=== PATIENT | female | born 1995 | race Caucasian/White ===

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

== ENCOUNTER 2017-01-13 12:42 | Emergency (ER) | payer OTHER ==
--- NOTE | 2017-01-13 13:26 | ED ---
URI HPI - General Chief Complaint: Upper Respiratory Infection Stated Complaint: Congestion,Headache Time Seen by Provider: 01/13/17 13:14 Source: patient, RN notes reviewed Mode of arrival: ambulatory Limitations: no limitations - History of Present Illness Initial Comments: Patient is a 21-year-old female with a chief complaint of upper a story congestion for the past week. Patient reports that she's had these symptoms off -and-on for the past month. She states that she was seen at [facility] and had a negative rapid strep and influenza yesterday. Patient states that she's had a productive cough. She is a smoker. She denies any history of asthma. She states that her cough has been green tinge of the sputum. She reports that she had a fever yesterday. She is taking Mucinex DM and Tylenol for pain. - Related Data Home Medications Medication Instructions Recorded Confirmed Ranitidine HCl [Zantac] 150 mg PO DAILY 06/14/16 12/19/16 Loratadine [Claritin] 10 mg PO DAILY 11/08/16 12/19/16 Escitalopram [Lexapro] 5 mg PO DAILY 12/19/16 12/19/16 Previous Rx's Medication Instructions Recorded Azithromycin [Zithromax Z-pack] 250 mg PO DIRECTED #6 tab 01/13/17 methylPREDNISolone Dose Pack 4 mg PO DIRECTED #21 package 01/13/17 [Medrol Dose Pack] Allergies Allergy/AdvReac Type Severity Reaction Status Date / Time No Known Allergies Allergy Verified 01/13/17 13:09 Review of Systems ROS Statement: Those systems with pertinent positive or pertinent negative responses have been documented in the HPI. ROS Other: All systems not noted in ROS Statement are negative. Past Medical History Past Medical History: GERD/Reflux Additional Past Medical History / Comment(s): hiatal hernia History of Any Multi-Drug Resistant Organisms: None Reported Past Surgical History: No Surgical Hx Reported Past Psychological History: Anxiety, Depression Smoking Status: Current every day smoker Past Alcohol Use History: None Reported Past Drug Use History: None Reported General Exam - General Exam Comments Initial Comments: Patient is a well-appearing 21-year-old female. No acute distress. Limitations: no limitations General appearance: alert, in no apparent distress Head exam: Present: atraumatic, normocephalic, normal inspection Eye exam: Present: normal appearance, PERRL, EOMI. Absent: scleral icterus, conjunctival injection, periorbital swelling ENT exam: Present: normal exam, normal oropharynx, mucous membranes moist, TM's normal bilaterally Neck exam: Present: normal inspection. Absent: tenderness, meningismus, lymphadenopathy Respiratory exam: Present: normal lung sounds bilaterally. Absent: respiratory distress, wheezes, rales, rhonchi, stridor Cardiovascular Exam: Present: regular rate, normal rhythm, normal heart sounds. Absent: systolic murmur, diastolic murmur, rubs, gallop, clicks GI/Abdominal exam: Present: soft, normal bowel sounds. Absent: distended, tenderness, guarding, rebound, rigid Extremities exam: Present: normal inspection, full ROM, normal capillary refill. Absent: tenderness, pedal edema, joint swelling, calf tenderness Back exam: Present: normal inspection Neurological exam: Present: alert, oriented X3, CN II-XII intact Psychiatric exam: Present: normal affect, normal mood Skin exam: Present: warm, dry, intact, normal color. Absent: rash Course Vital Signs 01/13/17 01/13/17 13:05 13:10 Temperature 99.2 F Pulse Rate 103 H Respiratory 18 20 Rate Blood Pressure 128/81 O2 Sat by Pulse 99 Oximetry Medical Decision Making - Medical Decision Making Patient is a 21-year-old [employer] chief complaint of upper respiratory and cough for the past week. She reports she's had a productive green cough. The patient had a negative rapid strep and influenza screen yesterday. Patient does have a productive cough while in the emergency room. Patient's chest x- ray was negative for any acute process. Given the patient's length of symptoms , fever and productive green cough I will start the patient on azithromycin and a Medrol Dosepak. I advised her to follow-up with primary care provider if symptoms continue persist in the next week. Return parameters were discussed. - Radiology Data Radiology results: report reviewed Chest Xray is negative for any acute process. No signs of pneumonia, pleural effusion. Disposition Clinical Impression: Cough, Sinus congestion Disposition: HOME SELF-CARE Condition: Good Instructions: Upper Respiratory Infection (ED) Additional Instructions: Patient advised to rest, increase fluids and to complete steroid and antibiotic prescription. Follow-up with primary care provider if symptoms continue to persist. Return to the EC they are signs or symptoms occur. Patient is advised to quit smoking as this will delay her healing as well. Prescriptions: Azithromycin [Zithromax Z-pack] 250 mg PO DIRECTED #6 tab methylPREDNISolone Dose Pack [Medrol Dose Pack] 4 mg PO DIRECTED #21 package Time of Disposition: 13:44
--- NOTE | 2017-01-13 13:37 | XR ---
EXAMINATION TYPE: XR chest 2V DATE OF EXAM: 01/13/2017 1:32 PM COMPARISON: 08/06/2016 TECHNIQUE: PA and lateral views submitted. HISTORY: Cough FINDINGS: The lungs are clear and there is no pneumothorax, pleural effusion, or focal pneumonia. IMPRESSION: 1. No acute process.
[2017-01-13 14:19] VITALS: BP 125/78; PULSE 100; RESP 16; TEMP 98.7
== END 2017-01-13 14:00 | disposition home or self-care (01) ==
LOC: EC 12:42
DX: R05 Cough (principal); R09.81 Nasal congestion; K21.9 Gastro-esophageal reflux disease without esophagitis; F41.9 Anxiety disorder, unspecified; F32.9 Major depressive disorder, single episode, unspecified; F17.200 Nicotine dependence, unspecified, uncomplicated
CPT/HCPCS: 71020; 99283

== ENCOUNTER 2017-02-17 21:12 | Emergency (ER) | payer OTHER ==
[2017-02-17 21:53] VITALS: BP 116/66; PULSE 89; RESP 16; TEMP 101.4
[2017-02-17] MEDS ORDERED: ACETAMINOPHEN TAB 500 MG TAB PO STA (22:15)
--- NOTE | 2017-02-17 22:18 | ED ---
General Adult HPI - General Chief complaint: ENT Stated complaint: Sore throat/Headache Time Seen by Provider: 02/17/17 22:10 Source: patient, RN notes reviewed Mode of arrival: ambulatory Limitations: no limitations - History of Present Illness Initial comments: This is a 21-year-old female who presents today with complaints of sore throat. Patient states she woke up this morning with a sore throat, dry cough, congestion and body aches. Patient denies any shortness of breath or headache. Patient states the only thing she has taken today is a Motrin. Patient denies any measured fever or symptoms of fevers/chills. Patient admits to some mild nausea but denies any abdominal pain, vomiting or diarrhea. Patient denies any chance of being . Patient states she is eating and drinking normally. Patient denies any dysuria or frequency of urination. Patient denies any recent shortness breath, chest pain, back pain, numbness, tingling, hematuria, or visual changes, or any other complaints. - Related Data Home Medications Medication Instructions Recorded Confirmed Ranitidine HCl [Zantac] 150 mg PO DAILY 06/14/16 02/17/17 Loratadine [Claritin] 10 mg PO DAILY 11/08/16 02/17/17 Escitalopram [Lexapro] 5 mg PO DAILY 12/19/16 02/17/17 Previous Rx's Medication Instructions Recorded Azithromycin [Zithromax Z-pack] 250 mg PO DIRECTED #6 tab 01/13/17 methylPREDNISolone Dose Pack 4 mg PO DIRECTED #21 package 01/13/17 [Medrol Dose Pack] Benzonatate [Tessalon Perles] 100 mg PO TID 3 Days 02/17/17 Allergies Allergy/AdvReac Type Severity Reaction Status Date / Time No Known Allergies Allergy Verified 02/17/17 21:53 Review of Systems ROS Statement: Those systems with pertinent positive or pertinent negative responses have been documented in the HPI. ROS Other: All systems not noted in ROS Statement are negative. Past Medical History Past Medical History: GERD/Reflux Additional Past Medical History / Comment(s): hiatal hernia History of Any Multi-Drug Resistant Organisms: None Reported Past Surgical History: No Surgical Hx Reported Past Psychological History: Anxiety, Depression Smoking Status: Current every day smoker Past Alcohol Use History: None Reported Past Drug Use History: None Reported General Exam - General Exam Comments Initial Comments: General: The patient is awake and alert, in no distress, and does not appear acutely ill. Eye: Pupils are equal, round and reactive to light, extra-ocular movements are intact. No nystagmus. There is normal conjunctiva bilaterally. No signs of icterus. Ears: TMs pink and pearly with intact cone of light bilaterally. Normal external ear canals Nose: Nasal turbinates are erythematous and moist. Mouth and throat: Mild erythema of the posterior pharynx. There are moist mucous membranes and no oral lesions. Neck: The neck is supple, there is no tenderness or JVD. Cardiovascular: There is a regular rate and rhythm. No murmur, rub or gallop is appreciated. Respiratory: Lungs are clear to auscultation, respirations are non-labored, breath sounds are equal. No wheezes, stridor, rales, or rhonchi. Gastrointestinal: Soft, non-distended, non-tender abdomen without masses or organomegaly noted. There is no rebound or guarding present. No CVA tenderness. Bowel sounds are unremarkable. Musculoskeletal: Normal ROM, no tenderness. Strength 5/5. Sensation intact. Radial pulses equal bilaterally 2+. Neurological: A&O x 3. CN II-XII intact, There are no obvious motor or sensory deficits. Coordination appears grossly intact. Speech is normal. Skin: Skin is warm and dry and no rashes or lesions are noted. Psychiatric: Cooperative, appropriate mood & affect, normal judgment. Limitations: no limitations Course Vital Signs 02/17/17 21:48 Temperature 101.4 F H Pulse Rate 89 Respiratory 16 Rate Blood Pressure 116/66 O2 Sat by Pulse 98 Oximetry Medical Decision Making - Medical Decision Making This is a 21-year-old female with complaints of sore throat. On physical exam patient has fever in the EC and was given Tylenol for this. Lungs are clear to auscultation bilaterally. There is mild erythema posterior pharynx. Nasal turbinates are erythematous and moist. Influenza and strep were checked and came back negative. A chest x-ray was done and reviewed showing: Normal chest. No change. Report by Dr. Kearney. I discussed viral pharyngitis. Discussed continuation of Tylenol and Motrin for pain and fever. I discussed that patient be sure to drink plenty of fluids. Patient was given a prescription for Tessalon Perles. I discussed return parameters. Discussed that patient should follow up with PCP in one to 2 days or return to the EC for any worsening symptoms or for any further concerns. Patient was receptive to this plan and patient will be discharged home. - Lab Data Lab Results 02/17/17 02/17/17 Range/Units 22:16 22:16 Influenza Type A RNA Not Detected (Not Detectd) Influenza Type B (PCR) Not Detected (Not Detectd) Group A Strep Rapid Negative (Negative) Disposition Clinical Impression: Viral pharyngitis Disposition: HOME SELF-CARE Condition: Good Instructions: Pharyngitis (ED) Additional Instructions: Please continue Tylenol and Motrin for pain and fever. Please be sure to drink plenty of fluids.Please use medication as discussed. Please follow-up with family doctor in the next 2 days of symptoms have not improved. Please return to emergency room if the symptoms increase or worsen or for any other concerns. Prescriptions: Benzonatate [Tessalon Perles] 100 mg PO TID 3 Days Referrals: Alyssa Rahman MD [Primary Care Provider] - 1-2 days Time of Disposition: 23:04
--- NOTE | 2017-02-17 22:54 | XR ---
EXAMINATION TYPE: XR chest 2V DATE OF EXAM: 02/17/2017 10:30 PM COMPARISON: 01/13/2017 HISTORY: Chest pain and cough TECHNIQUE: Frontal and lateral views of the chest are obtained. FINDINGS: Heart and mediastinum are normal. Lungs are clear. Diaphragm is normal. Bony thorax appear s normal. IMPRESSION: Normal chest. No change.
== END 2017-02-17 23:06 | disposition home or self-care (01) ==
LOC: EC 21:12
DX: J02.9 Acute pharyngitis, unspecified (principal); R50.9 Fever, unspecified; R05 Cough; K21.9 Gastro-esophageal reflux disease without esophagitis; K44.9 Diaphragmatic hernia without obstruction or gangrene; F41.9 Anxiety disorder, unspecified; F32.9 Major depressive disorder, single episode, unspecified; F17.200 Nicotine dependence, unspecified, uncomplicated; Z79.899 Other long term (current) drug therapy
CPT/HCPCS: 71020; 87081; 87430; 87502; 99282

== ENCOUNTER 2017-03-07 10:35 | Emergency (ER) | payer OTHER ==
[2017-03-07 11:26] VITALS: BP 114/63; PULSE 61; RESP 18; TEMP 97.9
[2017-03-07] MEDS ORDERED: predniSONE 50 MG TAB PO STA ×2 (11:40→11:54)
--- NOTE | 2017-03-07 11:43 | ED ---
General Adult HPI - General Chief complaint: Skin/Abscess/Foreign Body Stated complaint: RASH Time Seen by Provider: 03/07/17 11:25 Source: patient, RN notes reviewed Mode of arrival: ambulatory - History of Present Illness Initial comments: This is a 21-year-old female who presents emergency Department complaining of a rash on the lateral aspect of both upper arms. Patient states she was in class today when all of a sudden both arms started to itch she noticed a very subtle maculopapular rash on the upper arms. Patient states she has not noted anywhere else and she states the itching has improved. Patient states she can' t take Benadryl because she is to be awake for class and driving so she preferred. Get something else for the itching. Patient denies any difficulty breathing [place] of breath. Patient denies any similar rash in the past. Patient denies any new detergents or soaps or lotions. - Related Data Home Medications Medication Instructions Recorded Confirmed Ranitidine HCl [Zantac] 150 mg PO DAILY 06/14/16 02/17/17 Loratadine [Claritin] 10 mg PO DAILY 11/08/16 02/17/17 Escitalopram [Lexapro] 5 mg PO DAILY 12/19/16 02/17/17 Previous Rx's Medication Instructions Recorded Azithromycin [Zithromax Z-pack] 250 mg PO DIRECTED #6 tab 01/13/17 methylPREDNISolone Dose Pack 4 mg PO DIRECTED #21 package 01/13/17 [Medrol Dose Pack] Benzonatate [Tessalon Perles] 100 mg PO TID 3 Days 02/17/17 predniSONE 20 mg PO DAILY #8 tab 03/07/17 Allergies Allergy/AdvReac Type Severity Reaction Status Date / Time No Known Allergies Allergy Verified 02/17/17 21:53 Review of Systems ROS Statement: Those systems with pertinent positive or pertinent negative responses have been documented in the HPI. ROS Other: All systems not noted in ROS Statement are negative. Past Medical History Past Medical History: GERD/Reflux Additional Past Medical History / Comment(s): hiatal hernia History of Any Multi-Drug Resistant Organisms: None Reported Past Surgical History: No Surgical Hx Reported Past Psychological History: Anxiety, Depression Smoking Status: Current every day smoker Past Alcohol Use History: None Reported Past Drug Use History: None Reported General Exam - General Exam Comments Initial Comments: GENERAL Patient is well-developed and well-nourished. Patient is in mild distress. EYES Patient's pupils are equal and round. Extraocular motion is intact SKIN Patient has a very subtle maculopapular rash on both upper arms on the lateral aspect. NEURO The patient is alert and oriented 3 PYSCH Patient has normal interpersonal interactions. MUSCULOSKELETAL See above Course Vital Signs 03/07/17 11:24 Temperature 97.9 F Pulse Rate 61 Respiratory 18 Rate Blood Pressure 114/63 O2 Sat by Pulse 99 Oximetry Disposition Clinical Impression: Contact dermatitis Disposition: HOME SELF-CARE Condition: Good Instructions: Contact Dermatitis (ED) Prescriptions: predniSONE 20 mg PO DAILY #8 tab Referrals: Alyssa Rahman MD [Primary Care Provider] - 1-2 days Time of Disposition: 11:42
== END 2017-03-07 12:04 | disposition home or self-care (01) ==
LOC: EC 10:35
DX: L25.9 Unspecified contact dermatitis, unspecified cause (principal); K21.9 Gastro-esophageal reflux disease without esophagitis; F32.9 Major depressive disorder, single episode, unspecified; F41.9 Anxiety disorder, unspecified; F17.200 Nicotine dependence, unspecified, uncomplicated; Z79.899 Other long term (current) drug therapy
CPT/HCPCS: 99282; J7512

== ENCOUNTER 2017-08-18 14:40 | Emergency (ER) | payer OTHER ==
--- NOTE | 2017-08-18 15:18 | ED ---
General Adult HPI - General Chief complaint: Urogenital Stated complaint: nausea/headache Time Seen by Provider: 08/18/17 15:07 Source: patient, RN notes reviewed Mode of arrival: ambulatory Limitations: no limitations - History of Present Illness Initial comments: Patient 22-year-old female who presents emergency room today with a chief complaint of urinary tract infection type symptoms over the last 2 weeks. Despite increased urination and dysuria. She states that she's had some blood in her vaginal discharge. She admits that she finished her menstrual cycle yesterday. Patient also admits to some body aches. She states she said some nasal congestion and rhinorrhea. Admits to mild sore throat. Admits to mild cough. She does admit to headache as well located to the front. Patient denies any other complaints or symptoms at this time. Patient denies any shortness breath, chest pain, abdominal pain, numbness tingling, nausea or vomiting, no change, neck pain or stiffness. - Related Data Home Medications Medication Instructions Recorded Confirmed Ranitidine HCl [Zantac] 150 mg PO DAILY 06/14/16 02/17/17 Escitalopram [Lexapro] 5 mg PO DAILY 12/19/16 02/17/17 Previous Rx's Medication Instructions Recorded Ciprofloxacin HCl [Cipro] 500 mg PO Q12HR #20 day 08/18/17 Fluticasone Propionate [Flonase 1 - 2 spray EA NOSTRIL DAILY 5 Days 08/18/17 Allergy Relief] Ibuprofen [Motrin] 600 mg PO Q6HR PRN #40 day 08/18/17 Phenazopyridine [Pyridium] 100 mg PO TID 3 Days 08/18/17 Allergies Allergy/AdvReac Type Severity Reaction Status Date / Time No Known Allergies Allergy Verified 08/18/17 15:04 Review of Systems ROS Statement: Those systems with pertinent positive or pertinent negative responses have been documented in the HPI. ROS Other: All systems not noted in ROS Statement are negative. Past Medical History Past Medical History: GERD/Reflux Additional Past Medical History / Comment(s): hiatal hernia History of Any Multi-Drug Resistant Organisms: None Reported Past Surgical History: No Surgical Hx Reported Past Psychological History: Anxiety, Depression Smoking Status: Current every day smoker Past Alcohol Use History: None Reported Past Drug Use History: None Reported General Exam - General Exam Comments Initial Comments: General: The patient is awake and alert, in no distress, and does not appear acutely ill. Eye: Pupils are equal, round and reactive to light, extra-ocular movements are intact. No nystagmus. There is normal conjunctiva bilaterally. No signs of icterus. Ears, nose, mouth and throat: There are moist mucous membranes and no oral lesions. Tender to palpation over the maxillary sinuses. Neck: The neck is supple, there is no tenderness or JVD. No Meningismal signs. Cardiovascular: There is a regular rate and rhythm. No murmur, rub or gallop is appreciated. Respiratory: Lungs are clear to auscultation, respirations are non-labored, breath sounds are equal. No wheezes, stridor, rales, or rhonchi. Gastrointestinal: Soft, non-distended, non-tender abdomen without masses or organomegaly noted. There is no rebound or guarding present. No CVA tenderness. Bowel sounds are unremarkable. Musculoskeletal: Normal ROM, no tenderness. Strength 5/5. Sensation intact. Pulses equal bilaterally 2+. Neurological: A&O x 3. CN II-XII intact, There are no obvious motor or sensory deficits. Coordination appears grossly intact. Speech is normal. Skin: Skin is warm and dry and no rashes or lesions are noted. Psychiatric: Cooperative, appropriate mood & affect, normal judgment. Limitations: no limitations Course Vital Signs 08/18/17 15:00 Temperature 101.9 F H Pulse Rate 113 H Respiratory 20 Rate Blood Pressure 116/61 O2 Sat by Pulse 100 Oximetry Medical Decision Making - Medical Decision Making Urinalysis reviewed and does show evidence for urinary tract infection. Culture is pending. Patient reexamined at this time shows no signs of distress. Abdomen soft nontender. No flank pain or tenderness. Patient given Rocephin here in the emergency room. Patient also has symptoms of a sinus infection. She was here on antibiotics of ciprofloxacin for her symptoms also given Pyridium. Patient will also be given a prescription for Flonase to use for her sinus infection. She is advised. Family doctor over the next 2 days return here to the emergency room if any symptoms increase or worsen or for any other concerns. - Lab Data Lab Results 08/18/17 08/18/17 Range/Units 15:10 15:10 Urine Color Yellow Urine Appearance Cloudy H (Clear) Urine pH 6.0 (5.0-8.0) Ur Specific [place] 1.019 (1.001-1.035) Urine Protein 1+ H (Negative) Urine Glucose (UA) Negative (Negative) Urine Ketones Negative (Negative) Urine Blood Trace H (Negative) Urine Nitrite Negative (Negative) Urine Bilirubin Negative (Negative) Urine Urobilinogen 2.0 (<2.0) mg/dL Ur Leukocyte Esterase Large H (Negative) Urine RBC 3 (0-5) /hpf Urine WBC >182 H (0-5) /hpf Ur Squamous Epith Cells 15 H (0-4) /hpf Urine Mucus Occasional H (None) /hpf Urine HCG, Qual Not Detected (Not Detectd) Disposition Clinical Impression: Urinary tract infection, Sinusitis, acute Disposition: HOME SELF-CARE Condition: Good Instructions: Urinary Tract Infection in Women (ED) Additional Instructions: Please use medication as discussed. Please follow-up with family doctor in the next 2 days. Please return to emergency room if the symptoms increase or worsen or for any other concerns. Prescriptions: Ciprofloxacin HCl [Cipro] 500 mg PO Q12HR #20 day Fluticasone Propionate [Flonase Allergy Relief] 1 - 2 spray EA NOSTRIL DAILY 5 Days Ibuprofen [Motrin] 600 mg PO Q6HR PRN #40 day PRN Reason: Pain Phenazopyridine [Pyridium] 100 mg PO TID 3 Days Referrals: Alyssa Rahman MD [Primary Care Provider] - 1-2 days Time of Disposition: 15:43
[2017-08-18 15:31] LABS: Appearance,Urine Cloudy (Clear); Bilirubin,Urine Negative (Negative); Glucose,Urine (UA) Negative (Negative); Ketones,Urine Negative (Negative); Leukocyte Esterase,Urine Large (Negative); Mucus,Urine Occasional /hpf; Nitrite,Urine Negative (Negative); Particle Count 11525; Protein,Urine 1+ (Negative); RBC,Urine 3 /hpf (0-5); Specific Gravity,Urine 1.019 (1.001-1.035); Squamous Epithelial Cell,Urine 15 /hpf (0-4); UA Billing (MACRO vs. MICRO) MICRO; WBC,Urine >182 /hpf (0-5)
[2017-08-18] MEDS ORDERED: cefTRIAXone 1,000 MG VIAL (IM USE) IM STA (15:41)
[2017-08-18] MEDS ORDERED: IBUPROFEN 600 MG TAB PO STA (15:41)
[2017-08-18 16:16] VITALS: BP 114/58; PULSE 106; RESP 18; TEMP 101.4
== END 2017-08-18 16:16 | disposition home or self-care (01) ==
LOC: EC 14:40
DX: N39.0 Urinary tract infection, site not specified (principal); J01.00 Acute maxillary sinusitis, unspecified; K21.9 Gastro-esophageal reflux disease without esophagitis; F32.9 Major depressive disorder, single episode, unspecified; F41.9 Anxiety disorder, unspecified; F17.200 Nicotine dependence, unspecified, uncomplicated; Z79.899 Other long term (current) drug therapy
CPT/HCPCS: 99283; 96372; 81001; 81025; 87086; 87077; 87186; J0696

== ENCOUNTER 2018-01-20 21:27 | Emergency (ER) | payer OTHER ==
[2018-01-20 21:43] VITALS: RESP 16
--- NOTE | 2018-01-20 22:24 | XR ---
EXAMINATION TYPE: XR wrist complete LT DATE OF EXAM: 01/20/2018 COMPARISON: NONE HISTORY: Wrist pain TECHNIQUE: 4 views FINDINGS: I see no fracture nor dislocation. Joint spaces are normal. There are no erosions. There ar e no pathologic calcifications. Scaphoid is intact. IMPRESSION: Negative left wrist exam.
--- NOTE | 2018-01-20 22:29 | ED ---
Extremity Problem HPI - General Chief complaint: Extremity Problem,Nontraumatic Stated complaint: Wrist pain Time Seen by Provider: 01/20/18 21:45 Source: patient, RN notes reviewed, old records reviewed Mode of arrival: ambulatory Limitations: no limitations - History of Present Illness Initial comments: Patient is a 22 year old female with left wrist apin after lifting weights this week. No falls or trauma. She states pain is reporduced with ROM. Denies numbness or tingling. No falls or trauma to wrist. She is right handed. - Related Data Home Medications Medication Instructions Recorded Confirmed Ranitidine HCl [Zantac] 150 mg PO DAILY 06/14/16 01/20/18 Escitalopram [Lexapro] 5 mg PO DAILY 12/19/16 01/20/18 Cholecalciferol (Vitamin D3) 2,000 unit PO DAILY 01/20/18 01/20/18 [Vitamin D3] Loratadine [Claritin] 10 mg PO DAILY 01/20/18 01/20/18 Previous Rx's Medication Instructions Recorded Ibuprofen [Motrin] 400 mg PO Q4H #20 tab 01/20/18 Allergies Allergy/AdvReac Type Severity Reaction Status Date / Time No Known Allergies Allergy Verified 01/20/18 22:01 Review of Systems ROS Statement: Those systems with pertinent positive or pertinent negative responses have been documented in the HPI. ROS Other: All systems not noted in ROS Statement are negative. Past Medical History Past Medical History: GERD/Reflux Additional Past Medical History / Comment(s): hiatal hernia History of Any Multi-Drug Resistant Organisms: None Reported Past Surgical History: No Surgical Hx Reported Past Psychological History: Anxiety, Depression Smoking Status: Current every day smoker Past Alcohol Use History: None Reported Past Drug Use History: None Reported General Exam - General Exam Comments Initial Comments: This is a 22 year old female, no distress. Limitations: no limitations General appearance: alert, in no apparent distress Head exam: Present: atraumatic, normocephalic, normal inspection Eye exam: Present: normal appearance, PERRL, EOMI. Absent: scleral icterus, conjunctival injection, periorbital swelling ENT exam: Present: normal exam, mucous membranes moist Neck exam: Present: normal inspection. Absent: tenderness, meningismus, lymphadenopathy Respiratory exam: Present: normal lung sounds bilaterally. Absent: respiratory distress, wheezes, rales, rhonchi, stridor Cardiovascular Exam: Present: regular rate, normal rhythm, normal heart sounds. Absent: systolic murmur, diastolic murmur, rubs, gallop, clicks Extremities exam: Present: normal inspection, full ROM, normal capillary refill. Absent: tenderness, pedal edema, joint swelling, calf tenderness Left Elbow exam: Present: normal inspection, full ROM Forearm Wrist exam: Present: normal inspection, full ROM, tenderness (over carpals and reports pain with ROM. Full ROM noted.). Absent: dislocation, erythema, tenderness over anatomical snuff box, pain with axial thumb loading Hand Wrist exam: Present: normal inspection, full ROM Neuro motor exam: Present: wrist extension intact, thumb opposition intact, thumb IP flexion intact, thumb adduction intact, fingers 2-5 abduction intact Neurosensory exam: Present: 2-point discrimination Vascular: Present: normal capillary refill Back exam: Present: normal inspection Neurological exam: Present: alert, oriented X3, CN II-XII intact Psychiatric exam: Present: normal affect, normal mood Skin exam: Present: warm, dry, intact, normal color. Absent: rash Course Vital Signs 01/20/18 01/20/18 21:37 22:46 Temperature 97.3 F L 97.7 F Pulse Rate 77 72 Respiratory 16 16 Rate Blood Pressure 133/73 130/70 O2 Sat by Pulse 99 Oximetry Medical Decision Making - Medical Decision Making 22 year old female with non traumatic left wrist injury after lifting weights for one week. No other symptoms. Patient has full ROM, and no deformities or specific point tenderness. No snuff box tenderness. Patient xray of wrist is normal, no fracture, discolcation. Patient has no other symptoms. At this time paitent placed in TIFFANY wrap and adcised to follow up with PCP. Return parameters discussed. - Radiology Data Radiology results: report reviewed Wrist xray is negative for any acute process. Disposition Clinical Impression: Left wrist sprain Disposition: HOME SELF-CARE Condition: Good Instructions: Wrist Sprain (ED) Additional Instructions: Patient advised follow-up with health education specialist. Keep the wrist remaining in splint. Return to emergency department if any alarming signs or symptoms occur. Prescriptions: Ibuprofen [Motrin] 400 mg PO Q4H #20 tab Referrals: Alyssa Rahman MD [Primary Care Provider] - 1-2 days Time of Disposition: 22:27
[2018-01-20 22:47] VITALS: BP 130/70; PULSE 72; TEMP 97.7
== END 2018-01-20 22:47 | disposition home or self-care (01) ==
LOC: EC 21:27
DX: S63.501A Unspecified sprain of right wrist, initial encounter (principal); K21.9 Gastro-esophageal reflux disease without esophagitis; F41.9 Anxiety disorder, unspecified; F32.9 Major depressive disorder, single episode, unspecified; F17.200 Nicotine dependence, unspecified, uncomplicated; Z79.899 Other long term (current) drug therapy; X50.0XXA Overexertion from strenuous movement or load, initial encounter; Y93.75 Activity, martial arts
CPT/HCPCS: 99284

== ENCOUNTER 2018-01-26 15:19 | Emergency (ER) | payer OTHER ==
[2018-01-26 15:41] VITALS: BP 122/71; PULSE 106; RESP 18; TEMP 98.8
--- NOTE | 2018-01-26 16:08 | ED ---
General Adult HPI - General Chief complaint: Upper Respiratory Infection Stated complaint: Cold Time Seen by Provider: 01/26/18 15:53 Source: patient, RN notes reviewed Mode of arrival: ambulatory Limitations: no limitations - History of Present Illness Initial comments: Patient's a 22-year-old female who presents emergency room today with chief complaint cough congestion and rhinorrhea over the last week. She states cough is been dry. She's been using [id number] medications with little relief of the symptoms. Patient states that she has had a little bit of a sore throat and pressure ears. Patient denies any other complaints. Patient denies any recent fever, chills, shortness of breath, chest pain, back pain, abdominal pain , nausea or vomiting, numbness or tingling, dysuria or hematuria, constipation or diarrhea, headaches or visual changes, or any other complaints. - Related Data Home Medications Medication Instructions Recorded Confirmed Ranitidine HCl [Zantac] 150 mg PO DAILY 06/14/16 01/20/18 Escitalopram [Lexapro] 5 mg PO DAILY 12/19/16 01/20/18 Cholecalciferol (Vitamin D3) 2,000 unit PO DAILY 01/20/18 01/20/18 [Vitamin D3] Loratadine [Claritin] 10 mg PO DAILY 01/20/18 01/20/18 Previous Rx's Medication Instructions Recorded Ibuprofen [Motrin] 400 mg PO Q4H #20 tab 01/20/18 Amoxicillin/Potassium Clav 1 each PO Q12HR #20 tab 01/26/18 [Augmentin 875-125 Tablet] Fluticasone Propionate [Flonase 1 - 2 spray EA NOSTRIL DAILY 5 01/26/18 Allergy Relief] Days ml Allergies Allergy/AdvReac Type Severity Reaction Status Date / Time No Known Allergies Allergy Verified 01/26/18 15:40 Review of Systems ROS Statement: Those systems with pertinent positive or pertinent negative responses have been documented in the HPI. ROS Other: All systems not noted in ROS Statement are negative. Past Medical History Past Medical History: GERD/Reflux Additional Past Medical History / Comment(s): hiatal hernia History of Any Multi-Drug Resistant Organisms: None Reported Past Surgical History: No Surgical Hx Reported Past Psychological History: Anxiety, Depression Smoking Status: Current every day smoker Past Alcohol Use History: None Reported Past Drug Use History: None Reported General Exam - General Exam Comments Initial Comments: General: The patient is awake and alert, in no distress, and does not appear acutely ill. Eye: Pupils are equal, round and reactive to light, extra-ocular movements are intact. No nystagmus. There is normal conjunctiva bilaterally. No signs of icterus. Ears, nose, mouth and throat: There are moist mucous membranes and no oral lesions. Tender to palpation over both frontal and maxillary sinuses. TM's Clear bilaterally. Neck: The neck is supple, there is no tenderness or JVD. Cardiovascular: There is a regular rate and rhythm. No murmur, rub or gallop is appreciated. Respiratory: Lungs are clear to auscultation, respirations are non-labored, breath sounds are equal. No wheezes, stridor, rales, or rhonchi. Musculoskeletal: Normal ROM, no tenderness. Strength 5/5. Sensation intact. Pulses equal bilaterally 2+. Neurological: A&O x 3. CN II-XII intact, There are no obvious motor or sensory deficits. Coordination appears grossly intact. Speech is normal. Skin: Skin is warm and dry and no rashes or lesions are noted. Psychiatric: Cooperative, appropriate mood & affect, normal judgment. Limitations: no limitations Course Vital Signs 01/26/18 15:38 Temperature 98.8 F Pulse Rate 106 H Respiratory 18 Rate Blood Pressure 122/71 O2 Sat by Pulse 99 Oximetry Medical Decision Making - Medical Decision Making Patient will be treated for sinus infection with Flonase also advised to use [id number] Claritin and Sudafed. Patient will be provided a antibiotic advised to hold antibiotics if symptoms do not improve over the next 2 days to use medication as prescribed. Advised follow-up family doctor return here to emergency room if any symptoms increase worsen. Disposition Clinical Impression: Acute sinusitis Disposition: HOME SELF-CARE Condition: Good Instructions: Sinusitis (ED) Additional Instructions: Please use medication as discussed. Please follow-up with family doctor in the next 2 days of symptoms have not improved. Please return to emergency room if the symptoms increase or worsen or for any other concerns. Prescriptions: Amoxicillin/Potassium Clav [Augmentin 875-125 Tablet] 1 each PO Q12HR #20 tab Fluticasone Propionate [Flonase Allergy Relief] 1 - 2 spray EA NOSTRIL DAILY 5 Days ml Referrals: Alyssa Rahman MD [Primary Care Provider] - 1-2 days Time of Disposition: 16:04
== END 2018-01-26 16:18 | disposition home or self-care (01) ==
LOC: EC 15:19
DX: J01.90 Acute sinusitis, unspecified (principal); J02.9 Acute pharyngitis, unspecified; R05 Cough; F17.200 Nicotine dependence, unspecified, uncomplicated; K21.9 Gastro-esophageal reflux disease without esophagitis; F32.9 Major depressive disorder, single episode, unspecified; F41.9 Anxiety disorder, unspecified; Z79.899 Other long term (current) drug therapy
CPT/HCPCS: 99283

== ENCOUNTER 2018-02-23 16:25 | Emergency (ER) | payer OTHER ==
[2018-02-23 16:45] VITALS: BP 120/66; PULSE 103; RESP 18; TEMP 100.1
[2018-02-23] MEDS ORDERED: ACETAMINOPHEN TAB 500 MG TAB PO STA (17:08)
--- NOTE | 2018-02-23 17:08 | ED ---
URI HPI - General Chief Complaint: Upper Respiratory Infection Stated Complaint: fever Time Seen by Provider: 02/23/18 16:55 Source: patient, RN notes reviewed Mode of arrival: ambulatory Limitations: no limitations - History of Present Illness Initial Comments: This is a 22-year-old female who presents to the emergency department with chief complaint of upper respiratory symptoms. Patient states that yesterday she developed a sore throat. Today she began to have fevers, nonproductive cough and nasal congestion. She states that her fevers have gone up to 101. She states that she took 600 mg of ibuprofen approximately an hour and half prior to arrival. Denies any chest pain or shortness of breath. Denies abdominal pain, nausea or vomiting, dysuria or hematuria, constipation or diarrhea. She does admit to associated headache. - Related Data Home Medications Medication Instructions Recorded Confirmed Ranitidine HCl [Zantac] 150 mg PO DAILY 06/14/16 01/20/18 Escitalopram [Lexapro] 5 mg PO DAILY 12/19/16 01/20/18 Cholecalciferol (Vitamin D3) 2,000 unit PO DAILY 01/20/18 01/20/18 [Vitamin D3] Loratadine [Claritin] 10 mg PO DAILY 01/20/18 01/20/18 Previous Rx's Medication Instructions Recorded Ibuprofen [Motrin] 400 mg PO Q4H #20 tab 01/20/18 Amoxicillin/Potassium Clav 1 each PO Q12HR #20 tab 01/26/18 [Augmentin 875-125 Tablet] Fluticasone Propionate [Flonase 1 - 2 spray EA NOSTRIL DAILY 5 01/26/18 Allergy Relief] Days ml Allergies Allergy/AdvReac Type Severity Reaction Status Date / Time No Known Allergies Allergy Verified 02/23/18 16:45 Review of Systems ROS Statement: Those systems with pertinent positive or pertinent negative responses have been documented in the HPI. ROS Other: All systems not noted in ROS Statement are negative. Past Medical History Past Medical History: GERD/Reflux Additional Past Medical History / Comment(s): hiatal hernia History of Any Multi-Drug Resistant Organisms: None Reported Past Surgical History: No Surgical Hx Reported Past Psychological History: Anxiety, Depression Smoking Status: Current every day smoker Past Alcohol Use History: None Reported Past Drug Use History: None Reported General Exam - General Exam Comments Initial Comments: General: Awake and alert, well-developed; in no apparent distress. HEENT: Head atraumatic, normocephalic. Pupils are equal, round and reactive to light. Extraocular movements intact. Oropharynx moist with mild erythema. No bilateral tonsillar enlargement or exudates. Neck: Supple. Normal ROM. Cardiovascular: Regular rate and rhythm. No murmurs, rubs or gallops. Chest symmetrical. Respiratory: Lungs clear to auscultation bilaterally. No wheezes, rales or rhonchi. Normal respiratory effort with no use of accessory muscles. Abdomen: Soft, non-tender, non-distended. No rigidity, rebound or guarding. Normal bowel sounds in all 4 quadrants. Musculoskeletal: Normal ROM, no tenderness bilateral upper and lower extremities. Ambulating normally. Skin: [place], warm and dry without rashes or lesions. Neurological: Alert and oriented x3. CN II-XII grossly intact. Speech is fluent and answers are appropriate. No focal neuro deficits. Psychiatric: Normal mood and affect. No overt signs of depression or anxiety noted. Limitations: no limitations Course Vital Signs 02/23/18 16:42 Temperature 100.1 F H Pulse Rate 103 H Respiratory 18 Rate Blood Pressure 120/66 O2 Sat by Pulse 99 Oximetry Medical Decision Making - Medical Decision Making This is a 22-year-old female who presents to the emergency department with chief complaint of upper respiratory symptoms 1 day. She complains of fevers, cough, sore throat, headache and nasal congestion. Patient is negative for strep and influenza. Chest x-ray reveals no acute cardiopulmonary processes. Patient likely suffering from a viral upper respiratory infection. Vital signs are stable and patient is in no acute distress. Recommended supportive care and increasing fluid intake. Patient is in agreement with plan and voices understanding. All questions were answered. - Lab Data Lab Results 02/23/18 02/23/18 Range/Units 17:00 17:00 Influenza Type A RNA Not Detected (Not Detectd) Influenza Type B (PCR) Not Detected (Not Detectd) Group A Strep Rapid Negative (Negative) - Radiology Data Radiology results: report reviewed Chest x-ray findings: Heart and mediastinum are normal. Lungs are clear. Diaphragm is normal. Bony thorax is intact. Pulmonary vascularity is normal. Impression: Normal chest. No change. Disposition Clinical Impression: Upper respiratory infection Disposition: HOME SELF-CARE Condition: Good Instructions: Upper Respiratory Infection (ED) Additional Instructions: Please increase fluid intake. Please follow up with primary care provider within 1-2 days. Return to emergency department if symptoms should worsen or any concerns arise. Referrals: Alyssa Rahman MD [Primary Care Provider] - 1-2 days Time of Disposition: 17:41
--- NOTE | 2018-02-23 17:32 | XR ---
EXAMINATION TYPE: XR chest 2V DATE OF EXAM: 02/23/2018 COMPARISON: 02/17/2017 HISTORY: Cough and fever TECHNIQUE: Frontal and lateral views of the chest are obtained. FINDINGS: Heart and mediastinum are normal. Lungs are clear. Diaphragm is normal. Bony thorax is int act. Pulmonary vascularity is normal. IMPRESSION: Normal chest. No change.
== END 2018-02-23 17:44 | disposition home or self-care (01) ==
LOC: EC 16:25
DX: J06.9 Acute upper respiratory infection, unspecified (principal); K21.9 Gastro-esophageal reflux disease without esophagitis; F41.9 Anxiety disorder, unspecified; F32.9 Major depressive disorder, single episode, unspecified; F17.200 Nicotine dependence, unspecified, uncomplicated; Z79.899 Other long term (current) drug therapy
CPT/HCPCS: 71046; 87081; 87430; 87502; 99283

== ENCOUNTER 2018-04-07 13:19 | Emergency (ER) | payer OTHER ==
[2018-04-07 13:45] VITALS: RESP 18
[2018-04-07] MEDS ORDERED: ACETAMINOPHEN TAB 500 MG TAB PO STA (13:56)
--- NOTE | 2018-04-07 14:21 | XR ---
EXAMINATION TYPE: XR chest 2V DATE OF EXAM: 04/07/2018 COMPARISON: 02/23/2018 TECHNIQUE: PA and lateral views submitted. HISTORY: Pain FINDINGS: The lungs are clear and there is no pneumothorax, pleural effusion, or focal pneumonia. IMPRESSION: 1. No acute process.
--- NOTE | 2018-04-07 14:45 | ED ---
General Adult HPI - General Chief complaint: Upper Respiratory Infection Stated complaint: Congestion Time Seen by Provider: 04/07/18 13:48 Source: patient, RN notes reviewed Mode of arrival: ambulatory Limitations: no limitations - History of Present Illness Initial comments: 22-year-old female presents to the emergency department for a chief complaint of cough and congestion for one week. Patient states she also has a slight sore throat. Patient states her cough is productive and she is coughing up green mucus. Patient denies shortness of breath or chest pain. Patient denies any history of asthma but does states she is a smoker. Patient does not feel feverish and was not aware she had a fever until presenting to the emergency department. Patient denies any chance of . Patient does admit to some burning with urination. Patient denies any pain in her ears. Patient has no other complaints at this time including shortness of breath, chest pain, abdominal pain, nausea or vomiting, headache, or visual changes. - Related Data Home Medications Medication Instructions Recorded Confirmed Ranitidine HCl [Zantac] 150 mg PO DAILY 06/14/16 01/20/18 Escitalopram [Lexapro] 5 mg PO DAILY 12/19/16 01/20/18 Cholecalciferol (Vitamin D3) 2,000 unit PO DAILY 01/20/18 01/20/18 [Vitamin D3] Loratadine [Claritin] 10 mg PO DAILY 01/20/18 01/20/18 Previous Rx's Medication Instructions Recorded Ibuprofen [Motrin] 400 mg PO Q4H #20 tab 01/20/18 Amoxicillin/Potassium Clav 1 each PO Q12HR #20 tab 01/26/18 [Augmentin 875-125 Tablet] Fluticasone Propionate [Flonase 1 - 2 spray EA NOSTRIL DAILY 5 01/26/18 Allergy Relief] Days ml Albuterol Inhaler [Ventolin Hfa 1 - 2 puff INHALATION RT-Q6H PRN 04/07/18 Inhaler] #1 inhaler Amoxicillin 875 mg PO Q12HR #20 tablet 04/07/18 Benzonatate [Tessalon Perles] 100 mg PO TID PRN #14 capsule 04/07/18 Allergies Allergy/AdvReac Type Severity Reaction Status Date / Time No Known Allergies Allergy Verified 04/07/18 13:45 Review of Systems ROS Statement: Those systems with pertinent positive or pertinent negative responses have been documented in the HPI. ROS Other: All systems not noted in ROS Statement are negative. Past Medical History Past Medical History: GERD/Reflux Additional Past Medical History / Comment(s): hiatal hernia History of Any Multi-Drug Resistant Organisms: None Reported Past Surgical History: No Surgical Hx Reported Past Psychological History: Anxiety, Depression Smoking Status: Current every day smoker Past Alcohol Use History: None Reported Past Drug Use History: None Reported General Exam Limitations: no limitations General appearance: alert, in no apparent distress Head exam: Present: atraumatic, normocephalic, normal inspection Eye exam: Present: normal appearance, PERRL, EOMI. Absent: scleral icterus, conjunctival injection, periorbital swelling, periorbital tenderness ENT exam: Present: normal exam, normal oropharynx (Oropharynx appears nonerythematous and no tonsillar exudates present.), mucous membranes moist. Absent: TM's normal bilaterally (Left tympanic membrane appears slightly erythematous. Patient denies any pain.) Neck exam: Present: normal inspection, full ROM. Absent: tenderness, meningismus, lymphadenopathy (No tender lymphadenopathy on palpation) Respiratory exam: Present: normal lung sounds bilaterally, wheezes (Right upper and lower wheezes.). Absent: respiratory distress, rales, rhonchi, stridor GI/Abdominal exam: Present: soft, normal bowel sounds. Absent: distended, tenderness, guarding, rebound, rigid Course Vital Signs 04/07/18 13:43 Temperature 100.1 F H Pulse Rate 76 Respiratory 18 Rate Blood Pressure 110/69 O2 Sat by Pulse 100 Oximetry Medical Decision Making - Medical Decision Making 22-year-old female presents to the emergency department for a chief complaint of cough congestion and sore throat times one week. Patient is a smoker. No history of asthma. No shortness of breath or chest pain. Patient has a temperature of 100.1 in the emergency department. She was not aware she had a fever. Patient also admits to some urinary burning. Denies any other complaints. Chest x-ray demonstrates no acute cardiopulmonary process. Influenza and strep were negative. Urinalysis showed no infection. Negative . There was moderate blood in urine but patient is currently menstruating. Patient will be treated with amoxicillin due to symptoms over 1 week and erythematous eardrum. Patient will follow up with primary care in 1-2 days. She will return to the emergency Department if she has any worsening symptoms, high fever, or shortness of breath. - Lab Data Lab Results 04/07/18 04/07/18 04/07/18 Range/Units 14:24 14:24 14:47 Urine Color Urine Appearance (Clear) Urine pH (5.0-8.0) Ur Specific [place] (1.001-1.035) Urine Protein (Negative) Urine Glucose (UA) (Negative) Urine Ketones (Negative) Urine Blood (Negative) Urine Nitrite (Negative) Urine Bilirubin (Negative) Urine Urobilinogen (<2.0) mg/dL Ur Leukocyte Esterase (Negative) Urine RBC (0-5) /hpf Urine WBC (0-5) /hpf Ur Squamous Epith Cells (0-4) /hpf Urine Mucus (None) /hpf Urine HCG, Qual Not Detected (Not Detectd) Influenza Type A RNA Not Detected (Not Detectd) Influenza Type B (PCR) Not Detected (Not Detectd) Group A Strep Rapid Negative (Negative) 04/07/18 Range/Units 14:47 Urine Color Yellow Urine Appearance Clear (Clear) Urine pH 7.5 (5.0-8.0) Ur Specific [place] 1.020 (1.001-1.035) Urine Protein Trace H (Negative) Urine Glucose (UA) Negative (Negative) Urine Ketones Negative (Negative) Urine Blood Moderate H (Negative) Urine Nitrite Negative (Negative) Urine Bilirubin Negative (Negative) Urine Urobilinogen <2.0 (<2.0) mg/dL Ur Leukocyte Esterase Small H (Negative) Urine RBC <1 (0-5) /hpf Urine WBC 1 (0-5) /hpf Ur Squamous Epith Cells 1 (0-4) /hpf Urine Mucus Rare H (None) /hpf Urine HCG, Qual (Not Detectd) Influenza Type A RNA (Not Detectd) Influenza Type B (PCR) (Not Detectd) Group A Strep Rapid (Negative) Disposition Clinical Impression: Upper respiratory infection Disposition: HOME SELF-CARE Condition: Good Instructions: Upper Respiratory Infection (ED) Additional Instructions: Please take prescriptions as directed. Please take Motrin or Tylenol for fever or pain. Please follow-up with primary care in 1-2 days. Return to the emergency department if you have any worsening symptoms, shortness of breath, or high fevers. Prescriptions: Albuterol Inhaler [Ventolin Hfa Inhaler] 1 - 2 puff INHALATION RT-Q6H PRN #1 inhaler PRN Reason: Shortness Of Breath Amoxicillin 875 mg PO Q12HR #20 tablet Benzonatate [Tessalon Perles] 100 mg PO TID PRN #14 capsule PRN Reason: Cough Is patient prescribed a controlled substance at d/c from ED?: No Referrals: Alyssa Rahman MD [Primary Care Provider] - 1-2 days Time of Disposition: 15:13
[2018-04-07 15:04] LABS: Appearance,Urine Clear (Clear); Bilirubin,Urine Negative (Negative); Blood,Urine Moderate (Negative); Color,Urine Yellow; Glucose,Urine (UA) Negative (Negative); Ketones,Urine Negative (Negative); Leukocyte Esterase,Urine Small (Negative); Mucus,Urine Rare /hpf; Nitrite,Urine Negative (Negative); PH, Urine 7.5 (5.0-8.0); Protein,Urine Trace (Negative); RBC,Urine <1 /hpf (0-5); Squamous Epithelial Cell,Urine 1 /hpf (0-4); Urobilinogen,Urine <2.0 mg/dL (<2.0); WBC,Urine 1 /hpf (0-5)
[2018-04-07 15:24] VITALS: BP 116/61; PULSE 66; TEMP 98.3
== END 2018-04-07 15:23 | disposition home or self-care (01) ==
LOC: EC 13:19
DX: J06.9 Acute upper respiratory infection, unspecified (principal); R39.198 Other difficulties with micturition; K21.9 Gastro-esophageal reflux disease without esophagitis; F41.9 Anxiety disorder, unspecified; F32.9 Major depressive disorder, single episode, unspecified; F17.200 Nicotine dependence, unspecified, uncomplicated; Z79.899 Other long term (current) drug therapy
CPT/HCPCS: 71046; 81001; 81025; 87081; 87430; 87502; 99283

== ENCOUNTER 2020-03-19 14:50 | Emergency (ER) | payer OTHER ==
[2020-03-19 14:55] VITALS: BP 114/75; PULSE 128; RESP 18; TEMP 99.5
[2020-03-19] MEDS ORDERED: IBUPROFEN 600 MG TAB PO STA (15:41)
--- NOTE | 2020-03-19 15:44 | ED ---
General Adult HPI - General Chief complaint: ENT Stated complaint: fever/body aches/sore throat Time Seen by Provider: 03/19/20 15:00 Source: patient, RN notes reviewed, old records reviewed Mode of arrival: ambulatory Limitations: no limitations - History of Present Illness Initial comments: This is a 24-year-old female who presents emergency Department complaining of a 2 day history of sore throat fever and some body aches. Patient denies any shortness of breath or difficulty breathing. Patient denies any chest pain or palpitations. Patient denies any conjunctivae to be patient's abdominal pain patient denies nausea vomiting diarrhea. Patient states she takes Tylenol fever comes down and she feels a little bit better. Patient states she hasn't taken Motrin 6:00 today. - Related Data Home Medications Medication Instructions Recorded Confirmed Ranitidine HCl [Zantac] 150 mg PO DAILY 06/14/16 01/20/18 Escitalopram [Lexapro] 5 mg PO DAILY 12/19/16 01/20/18 Cholecalciferol (Vitamin D3) 2,000 unit PO DAILY 01/20/18 01/20/18 [Vitamin D3] Loratadine [Claritin] 10 mg PO DAILY 01/20/18 01/20/18 Previous Rx's Medication Instructions Recorded Ibuprofen [Motrin] 400 mg PO Q4H #20 tab 01/20/18 Amoxicillin/Potassium Clav 1 each PO Q12HR #20 tab 01/26/18 [Augmentin 875-125 Tablet] Fluticasone Propionate [Flonase 1 - 2 spray EA NOSTRIL DAILY 5 01/26/18 Allergy Relief] Days ml Albuterol Inhaler (Bulk) [Ventolin 1 - 2 puff INHALATION RT-Q6H PRN 04/07/18 Hfa Inhaler (Bulk)] #1 inhaler Amoxicillin 875 mg PO Q12HR #20 tablet 04/07/18 Benzonatate [Tessalon Perles] 100 mg PO TID PRN #14 capsule 04/07/18 Amoxicillin 500 mg PO Q8H #30 capsule 03/19/20 Allergies Allergy/AdvReac Type Severity Reaction Status Date / Time No Known Allergies Allergy Verified 04/07/18 13:45 Review of Systems ROS Statement: Those systems with pertinent positive or pertinent negative responses have been documented in the HPI. ROS Other: All systems not noted in ROS Statement are negative. Past Medical History Past Medical History: GERD/Reflux Additional Past Medical History / Comment(s): hiatal hernia History of Any Multi-Drug Resistant Organisms: None Reported Past Surgical History: No Surgical Hx Reported Past Psychological History: Anxiety, Depression Smoking Status: Current every day smoker Past Alcohol Use History: None Reported Past Drug Use History: None Reported General Exam - General Exam Comments Initial Comments: GENERAL: Patient is well-developed and well-nourished. Patient is nontoxic and well- hydrated and is in no acute distress. ENT: Neck is soft and supple. Patient has some anterior cervical lymphadenopathy. Pharynx is red and tonsils are red with exudate. Moist mucous membranes. Neck has full range of motion without eliciting any pain. EYES: The sclera were anicteric and conjunctiva were pink and moist. Extraocular movements were intact and pupils were equal round and reactive to light. Eyelids were unremarkable. PULMONARY: Unlabored respirations. Good breath sounds bilaterally. No audible rales rhonchi or wheezing was noted. CARDIOVASCULAR: There is a regular rate and rhythm without any murmurs gallops or rubs. ABDOMEN: Soft and nontender with normal bowel sounds. No palpable organomegaly was noted. There is no palpable pulsatile mass. SKIN: Skin is clear with no lesions or rashes and otherwise unremarkable. NEUROLOGIC: Patient is alert and oriented x3. Cranial nerves II through XII are grossly intact. Motor and sensory are also intact. Normal speech, volume and content. Symmetrical smile. MUSCULOSKELETAL: Normal extremities with adequate strength and full range of motion. No lower extremity swelling or edema. No calf tenderness. LYMPHATICS: Patient has anterior cervical adenopathy but no posterior cervical adenopathy PSYCHIATRIC: Normal psychiatric evaluation. Limitations: no limitations Course Vital Signs 03/19/20 14:52 Temperature 99.5 F Pulse Rate 128 H Respiratory 18 Rate Blood Pressure 114/75 O2 Sat by Pulse 98 Oximetry Disposition Clinical Impression: Strep pharyngitis Disposition: HOME SELF-CARE Condition: Good Instructions (If sedation given, give patient instructions): Strep Throat (ED) Prescriptions: Amoxicillin 500 mg PO Q8H #30 capsule Is patient prescribed a controlled substance at d/c from ED?: No Referrals: Alyssa Rahman MD [Primary Care Provider] - 1-2 days Time of Disposition: 15:44
== END 2020-03-19 16:07 | disposition home or self-care (01) ==
LOC: EC 14:50
DX: J02.0 Streptococcal pharyngitis (principal); K21.9 Gastro-esophageal reflux disease without esophagitis; F41.9 Anxiety disorder, unspecified; F32.9 Major depressive disorder, single episode, unspecified; F17.200 Nicotine dependence, unspecified, uncomplicated; Z79.899 Other long term (current) drug therapy
CPT/HCPCS: 87081; 87430; 99284

== ENCOUNTER 2020-03-20 14:55 | Emergency (ER) | payer OTHER ==
[2020-03-20 15:02] VITALS: RESP 18; TEMP 98.7
[2020-03-20] MEDS ORDERED: SODIUM CHLORIDE 0.9% 1,000 ML IV ONE (16:02)
[2020-03-20] MEDS ORDERED: ONDANSETRON 4 MG/2 ML VIAL IVP STA (16:02)
[2020-03-20 16:25] LABS: Basophils % (A) 0 %; Eosinophils % (A) 0 %; HGB 14.4 gm/dL (11.4-16.0); Lymphocytes # (A) 0.7 k/uL (1.0-4.8); Lymphocytes % (A) 7 %; MCH 29.8 pg (25.0-35.0); Mean Platelet Volume 9.2; Monocytes # (A) 0.4 k/uL (0-1.0); Monocytes % (A) 4 %; Neutrophils # (A) 8.8 k/uL (1.3-7.7); Neutrophils % (A) 87 %; Platelet Count 155 k/uL (150-450); RBC 4.84 m/uL (3.80-5.40); RDW 11.6 % (11.5-15.5); WBC 10.1 k/uL (3.8-10.6)
[2020-03-20 16:35] LABS: ALT 18 U/L (4-34); AST 25 U/L (14-36); African American GFR (CKD) >90 (>60 ml/min/1.73 sqM); Albumin 4.2 g/dL (3.5-5.0); Alkaline Phosphatase 63 U/L (38-126); Anion Gap 6 mmol/L; Blood Urea Nitrogen 10 mg/dL (7-17); Calcium 9.2 mg/dL (8.4-10.2); Carbon Dioxide 26 mmol/L (22-30); Chloride 105 mmol/L (98-107); Glucose 99 mg/dL (74-99); Non-African American GFR(CKD) >90 (>60 ml/min/1.73 sqM); Potassium 4.1 mmol/L (3.5-5.1); Sodium 137 mmol/L (137-145); Total Bilirubin 0.3 mg/dL (0.2-1.3); Total Protein 7.2 g/dL (6.3-8.2)
[2020-03-20 17:41] LABS: Appearance,Urine Cloudy (Clear); Bilirubin,Urine Negative (Negative); Blood,Urine Negative (Negative); Color,Urine Yellow; Glucose,Urine (UA) Negative (Negative); Ketones,Urine 2+ (Negative); Leukocyte Esterase,Urine Trace (Negative); Mucus,Urine Few /hpf; Nitrite,Urine Negative (Negative); PH, Urine 6.5 (5.0-8.0); Protein,Urine 1+ (Negative); RBC,Urine 1 /hpf (0-5); Specific Gravity,Urine 1.032 (1.001-1.035); Squamous Epithelial Cell,Urine 15 /hpf (0-4); Urobilinogen,Urine >12.0 mg/dL (<2.0); WBC,Urine 5 /hpf (0-5)
[2020-03-20] MEDS ORDERED: ONDANSETRON 4 MG ODT STARTER PACK 2 TAB BTL PO STA (18:28)
[2020-03-20] MEDS ORDERED: METOCLOPRAMIDE 5 MG/ML 2 ML VIAL IVP STA (18:29)
--- NOTE | 2020-03-20 18:29 | ED ---
General Adult HPI - General Chief complaint: Nausea/Vomiting/Diarrhea Stated complaint: nausea/vomitting Time Seen by Provider: 03/20/20 15:36 Source: patient, RN notes reviewed, old records reviewed Mode of arrival: ambulatory Limitations: no limitations - History of Present Illness Initial comments: 24-year-old female patient with the chief complaint of nausea and vomiting. Patient was seen yesterday for sore throat and discharged with amoxicillin. P atient reports that today she denies vomiting nausea and vomiting. For approximately 3 episodes of emesis. Patient denies any other complaints at this time. Systemic: Pt denies fatigue, fever/chills, rash. Pt denies weakness, night sweats, weight loss. Neuro: Pt denies headache, visual disturbances, syncope or pre-syncope. HEENT: Pt denies ocular discharge or irritation, otalgia, rhinorrhea. Cardiopulmonary: Pt denies chest pain, SOB, heart palpitations, dyspnea on exertion. Abdominal/GI: Pt denies abdominal pain. : Pt denies dysuria, burning w/ urination, frequency/urgency. Denies new onset urinary or bowel incontinence. MSK: Pt denies myalgia, loss of strength or function in extremities. Neuro: Pt denies new onset weakness, paresthesias. - Related Data Home Medications Medication Instructions Recorded Confirmed Ranitidine HCl [Zantac] 150 mg PO DAILY 06/14/16 01/20/18 Escitalopram [Lexapro] 5 mg PO DAILY 12/19/16 01/20/18 Cholecalciferol (Vitamin D3) 2,000 unit PO DAILY 01/20/18 01/20/18 [Vitamin D3] Loratadine [Claritin] 10 mg PO DAILY 01/20/18 01/20/18 Previous Rx's Medication Instructions Recorded Ibuprofen [Motrin] 400 mg PO Q4H #20 tab 01/20/18 Amoxicillin/Potassium Clav 1 each PO Q12HR #20 tab 01/26/18 [Augmentin 875-125 Tablet] Fluticasone Propionate [Flonase 1 - 2 spray EA NOSTRIL DAILY 5 01/26/18 Allergy Relief] Days ml Albuterol Inhaler (Bulk) [Ventolin 1 - 2 puff INHALATION RT-Q6H PRN 04/07/18 Hfa Inhaler (Bulk)] #1 inhaler Amoxicillin 875 mg PO Q12HR #20 tablet 04/07/18 Benzonatate [Tessalon Perles] 100 mg PO TID PRN #14 capsule 04/07/18 Amoxicillin 500 mg PO Q8H #30 capsule 03/19/20 Ondansetron Odt [Zofran ODT] 4 mg PO Q8HR PRN #20 tab 03/20/20 Allergies Allergy/AdvReac Type Severity Reaction Status Date / Time No Known Allergies Allergy Verified 03/20/20 15:02 Review of Systems ROS Statement: Those systems with pertinent positive or pertinent negative responses have been documented in the HPI. ROS Other: All systems not noted in ROS Statement are negative. Past Medical History Past Medical History: GERD/Reflux Additional Past Medical History / Comment(s): hiatal hernia History of Any Multi-Drug Resistant Organisms: None Reported Past Surgical History: No Surgical Hx Reported Past Psychological History: Anxiety, Depression Smoking Status: Current every day smoker Past Alcohol Use History: Occasional Past Drug Use History: None Reported General Exam - General Exam Comments Initial Comments: Constitutional: NAD, AOX3, Pt has pleasant affect. HEENT: NC/AT, trachea midline, neck supple, no lymphadenopathy. Posterior pharynx mildly erythematous, scattered exudates. External ears appear normal, without discharge. Mucous membranes moist. Eyes PERRLA, EOM intact. There is no scleral icterus. No pallor noted. Cardiopulmonary: RRR, no murmurs, rubs or gallops, no JVD noted. Lungs CTAB in anterior and posterior oliva. No peripheral edema. Abdominal exam: Abdomen soft and non-distended. Abdomen non-tender to palpation in all 4 quadrants. Bowel sounds active in LLQ. No hepatosplenomegaly. No ecchymosis Neuro: CN II-XII grossly intact. No nuchal rigidity. No raccon eyes, no cochran sign, no hemotympanum. No cervical spinal tenderness. MSK: No posterior calf tenderness bilaterally, homans sign negative bilaterally. Posterior tibialis and radial pulse +2 bilaterally. Sensation intact in upper and lower extremities. Full active ROM in upper and lower extremities, 5/5 stregnth. Limitations: no limitations Course Vital Signs 03/20/20 15:00 Temperature 98.7 F Pulse Rate 106 H Respiratory 18 Rate Blood Pressure 119/76 O2 Sat by Pulse 99 Oximetry Medical Decision Making - Medical Decision Making 24-year-old female patient with the chief complaint of nausea and vomiting. Patient was seen yesterday for sore throat and discharged with amoxicillin. Patient reports that today she denies vomiting nausea and vomiting. For approximately 3 episodes of emesis. Patient denies any other complaints at this time. Patient vital signs are stable, afebrile. Physical exam displayed mild. 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 GC CMP are non- impressive. UA displayed +2 ketones. HCG is negative. Coronavirus test is negative. Patient is tolerating oral intake in the room. Patient discharged Zofran. Will follow up with primary care for return to ER physician worsens. Case discussed with Dr. Barrios. - Lab Data Result diagrams: 03/20/20 16:01 03/20/20 16:01 Lab Results 03/20/20 03/20/20 03/20/20 Range/Units 16:01 16:01 16:25 WBC 10.1 (3.8-10.6) k/uL RBC 4.84 (3.80-5.40) m/uL Hgb 14.4 (11.4-16.0) gm/dL Hct 45.0 (34.0-46.0) % MCV 93.0 (80.0-100.0) fL MCH 29.8 (25.0-35.0) pg MCHC 32.0 (31.0-37.0) g/dL RDW 11.6 (11.5-15.5) % Plt Count 155 (150-450) k/uL Neutrophils % 87 % Lymphocytes % 7 % Monocytes % 4 % Eosinophils % 0 % Basophils % 0 % Neutrophils # 8.8 H (1.3-7.7) k/uL Lymphocytes # 0.7 L (1.0-4.8) k/uL Monocytes # 0.4 (0-1.0) k/uL Eosinophils # 0.0 (0-0.7) k/uL Basophils # 0.0 (0-0.2) k/uL Sodium 137 (137-145) mmol/L Potassium 4.1 (3.5-5.1) mmol/L Chloride 105 (98-107) mmol/L Carbon Dioxide 26 (22-30) mmol/L Anion Gap 6 mmol/L BUN 10 (7-17) mg/dL Creatinine 0.64 (0.52-1.04) mg/dL Est GFR (CKD-EPI)AfAm >90 (>60 ml/min/1.73 sqM) Est GFR (CKD-EPI)NonAf >90 (>60 ml/min/1.73 sqM) Glucose 99 (74-99) mg/dL Calcium 9.2 (8.4-10.2) mg/dL Total Bilirubin 0.3 (0.2-1.3) mg/dL AST 25 (14-36) U/L ALT 18 (4-34) U/L Alkaline Phosphatase 63 (38-126) U/L Total Protein 7.2 (6.3-8.2) g/dL Albumin 4.2 (3.5-5.0) g/dL Lipase 58 (23-300) U/L Urine Color Urine Appearance (Clear) Urine pH (5.0-8.0) Ur Specific [place] (1.001-1.035) Urine Protein (Negative) Urine Glucose (UA) (Negative) Urine Ketones (Negative) Urine Blood (Negative) Urine Nitrite (Negative) Urine Bilirubin (Negative) Urine Urobilinogen (<2.0) mg/dL Ur Leukocyte Esterase (Negative) Urine RBC (0-5) /hpf Urine WBC (0-5) /hpf Ur Squamous Epith Cells (0-4) /hpf Urine Mucus (None) /hpf Urine HCG, Qual (Not Detectd) Coronavirus (PCR) Not Detected (Not Detectd) 03/20/20 03/20/20 Range/Units 17:17 17:17 WBC (3.8-10.6) k/uL RBC (3.80-5.40) m/uL Hgb (11.4-16.0) gm/dL Hct (34.0-46.0) % MCV (80.0-100.0) fL MCH (25.0-35.0) pg MCHC (31.0-37.0) g/dL RDW (11.5-15.5) % Plt Count (150-450) k/uL Neutrophils % % Lymphocytes % % Monocytes % % Eosinophils % % Basophils % % Neutrophils # (1.3-7.7) k/uL Lymphocytes # (1.0-4.8) k/uL Monocytes # (0-1.0) k/uL Eosinophils # (0-0.7) k/uL Basophils # (0-0.2) k/uL Sodium (137-145) mmol/L Potassium (3.5-5.1) mmol/L Chloride (98-107) mmol/L Carbon Dioxide (22-30) mmol/L Anion Gap mmol/L BUN (7-17) mg/dL Creatinine (0.52-1.04) mg/dL Est GFR (CKD-EPI)AfAm (>60 ml/min/1.73 sqM) Est GFR (CKD-EPI)NonAf (>60 ml/min/1.73 sqM) Glucose (74-99) mg/dL Calcium (8.4-10.2) mg/dL Total Bilirubin (0.2-1.3) mg/dL AST (14-36) U/L ALT (4-34) U/L Alkaline Phosphatase (38-126) U/L Total Protein (6.3-8.2) g/dL Albumin (3.5-5.0) g/dL Lipase (23-300) U/L Urine Color Yellow Urine Appearance Cloudy H (Clear) Urine pH 6.5 (5.0-8.0) Ur Specific [place] 1.032 (1.001-1.035) Urine Protein 1+ H (Negative) Urine Glucose (UA) Negative (Negative) Urine Ketones 2+ H (Negative) Urine Blood Negative (Negative) Urine Nitrite Negative (Negative) Urine Bilirubin Negative (Negative) Urine Urobilinogen >12.0 (<2.0) mg/dL Ur Leukocyte Esterase Trace H (Negative) Urine RBC 1 (0-5) /hpf Urine WBC 5 (0-5) /hpf Ur Squamous Epith Cells 15 H (0-4) /hpf Urine Mucus Few H (None) /hpf Urine HCG, Qual Not Detected (Not Detectd) Coronavirus (PCR) (Not Detectd) Disposition Clinical Impression: Nausea and vomiting Disposition: HOME SELF-CARE Condition: Stable Instructions (If sedation given, give patient instructions): Acute Nausea and Vomiting (ED) Additional Instructions: Follow-up with primary care for tomorrow. Use nausea medication as needed, make use one tab every 8 hours. Return to ER if condition worsens. Prescriptions: Ondansetron Odt [Zofran ODT] 4 mg PO Q8HR PRN #20 tab PRN Reason: Nausea Is patient prescribed a controlled substance at d/c from ED?: No Referrals: Alyssa Rahman MD [Primary Care Provider] - 1-2 days
[2020-03-20 18:43] VITALS: BP 121/82; PULSE 90
== END 2020-03-20 18:40 | disposition home or self-care (01) ==
LOC: EC 14:55
DX: R11.2 Nausea with vomiting, unspecified (principal); Z20.828 Contact with and (suspected) exposure to other viral communicable diseases; K21.9 Gastro-esophageal reflux disease without esophagitis; F41.9 Anxiety disorder, unspecified; F32.9 Major depressive disorder, single episode, unspecified; F17.200 Nicotine dependence, unspecified, uncomplicated; Z79.899 Other long term (current) drug therapy
CPT/HCPCS: 36415; 80053; 83690; 85025; 81001; 81025; 87635; 99284; 96374; 96375; 96361; J2765; J2405; S0119

== ENCOUNTER 2020-10-03 11:39 | Emergency (ER) | payer OTHER ==
[2020-10-03] MEDS ORDERED: IBUPROFEN 600 MG TAB PO STA (13:57)
[2020-10-03] MEDS ORDERED: ACETAMINOPHEN TAB 500 MG TAB PO STA (13:57)
--- NOTE | 2020-10-03 14:22 | ED ---
Fever HPI - General Chief Complaint: Fever Stated Complaint: cough, fever Time Seen by Provider: 10/03/20 13:54 Source: patient, RN notes reviewed, old records reviewed Mode of arrival: ambulatory Limitations: no limitations - History of Present Illness Initial Comments: 25-year-old female presents emergency room today with 1 day of sore throat and runny nose fever and bodyaches. 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 Patient reports that she has no known exposure to positive Covid patient that she is aware of. Patient is on Motrin or Tylenol today. She arrives to return today with a fever 102.3. Patient denies any significant cough at this time or shortness of breath or chest pain. Patient denies any chance of . - Related Data Home Medications Medication Instructions Recorded Confirmed Ranitidine HCl [Zantac] 150 mg PO DAILY 06/14/16 01/20/18 Escitalopram [Lexapro] 5 mg PO DAILY 12/19/16 01/20/18 Cholecalciferol (Vitamin D3) 2,000 unit PO DAILY 01/20/18 01/20/18 [Vitamin D3] Loratadine [Claritin] 10 mg PO DAILY 01/20/18 01/20/18 Previous Rx's Medication Instructions Recorded Ibuprofen [Motrin] 400 mg PO Q4H #20 tab 01/20/18 Amoxicillin/Potassium Clav 1 each PO Q12HR #20 tab 01/26/18 [Augmentin 875-125 Tablet] Fluticasone Propionate [Flonase 1 - 2 spray EA NOSTRIL DAILY 5 01/26/18 Allergy Relief] Days ml Albuterol Inhaler (Mhu) [Ventolin 1 - 2 puff INHALATION RT-Q6H PRN 04/07/18 Hfa Inhaler (Mhu)] #1 inhaler Amoxicillin 875 mg PO Q12HR #20 tablet 04/07/18 Benzonatate [Tessalon Perles] 100 mg PO TID PRN #14 capsule 04/07/18 Amoxicillin 500 mg PO Q8H #30 capsule 03/19/20 Ondansetron Odt [Zofran ODT] 4 mg PO Q8HR PRN #20 tab 03/20/20 Azithromycin [Zithromax Z-pack (6 250 mg PO DIRECTED #6 tab 11/06/20 tabs)] Allergies Allergy/AdvReac Type Severity Reaction Status Date / Time No Known Allergies Allergy Verified 10/03/20 12:35 Review of Systems ROS Statement: Those systems with pertinent positive or pertinent negative responses have been documented in the HPI. ROS Other: All systems not noted in ROS Statement are negative. Past Medical History Past Medical History: GERD/Reflux Additional Past Medical History / Comment(s): hiatal hernia History of Any Multi-Drug Resistant Organisms: None Reported Past Surgical History: No Surgical Hx Reported Past Psychological History: Anxiety, Depression Smoking Status: Former smoker, Vaper Past Alcohol Use History: Occasional Past Drug Use History: None Reported General Exam - General Exam Comments Initial Comments: 25-year-old female. Alert and oriented 3. No acute distress. Limitations: no limitations General appearance: alert, in no apparent distress Head exam: Present: atraumatic, normocephalic, normal inspection Eye exam: Present: normal appearance, PERRL, EOMI. Absent: scleral icterus, conjunctival injection, periorbital swelling ENT exam: Present: normal exam. Absent: normal oropharynx (Patient has is erythematous oropharynx. Evidence of postnasal drip.) Neck exam: Present: normal inspection. Absent: tenderness, meningismus, lymphadenopathy Respiratory exam: Present: normal lung sounds bilaterally. Absent: respiratory distress, wheezes, rales, rhonchi, stridor Cardiovascular Exam: Present: regular rate, normal rhythm, normal heart sounds. Absent: systolic murmur, diastolic murmur, rubs, gallop, clicks GI/Abdominal exam: Present: soft, normal bowel sounds. Absent: distended, tenderness, guarding, rebound, rigid Extremities exam: Present: normal inspection, full ROM, normal capillary refill. Absent: tenderness, pedal edema, joint swelling, calf tenderness Back exam: Present: normal inspection Neurological exam: Present: alert, oriented X3, CN II-XII intact Psychiatric exam: Present: normal affect, normal mood Skin exam: Present: warm, dry, intact, normal color. Absent: rash Course Vital Signs 10/03/20 10/03/20 12:31 14:24 Temperature 102.8 F H Pulse Rate 128 H 114 H Respiratory 22 18 Rate Blood Pressure 94/66 123/67 O2 Sat by Pulse 100 99 Oximetry Medical Decision Making - Medical Decision Making 25-year-old female. Alert and oriented 3. Presents today with complaints of fever chills body aches. She has a fever 102.3. Patient says that for influenza was negative. Rapid strep test is negative. Discussed the Patient could likely have Covid 19 infection she has to self quarantine for 14 days. Discussed the results will be double next 1-2 days. Discussed return parameters. - Lab Data Lab Results 10/03/20 10/03/20 Range/Units 14:21 14:21 Influenza Type A RNA Not Detected (Not Detectd) Influenza Type B (PCR) Not Detected (Not Detectd) Group A Strep Rapid Negative (Negative) Disposition Clinical Impression: Sinusitis, Fever, COVID-19 virus test result unknown Disposition: HOME SELF-CARE Condition: Good Instructions (If sedation given, give patient instructions): Fever in Adults (ED) Additional Instructions: Patient advised to take Motrin Tylenol every 4 hours for pain. Take decongestant medication. Advised following up with primary care doctor any pressor if there is any severe worsening symptoms, return to the emergency department. Patient should self quarantined until results of covid 19 test. Positive for covid 19 Patient should quarantine for 14 days. Return to ED if any alarming signs or symptoms occur. Prescriptions: Azithromycin [Zithromax Z-pack (6 tabs)] 250 mg PO DIRECTED #6 tab Is patient prescribed a controlled substance at d/c from ED?: No Referrals: Alyssa Rahman MD [Primary Care Provider] - 1-2 days Time of Disposition: 15:22
[2020-10-03 14:28] VITALS: RESP 18
[2020-10-03 15:52] VITALS: BP 112/61; PULSE 103; TEMP 98.9
== END 2020-10-03 15:51 | disposition home or self-care (01) ==
LOC: EC 11:39
DX: J32.9 Chronic sinusitis, unspecified (principal); K21.9 Gastro-esophageal reflux disease without esophagitis; F41.9 Anxiety disorder, unspecified; F32.9 Major depressive disorder, single episode, unspecified; Z79.899 Other long term (current) drug therapy; Z87.891 Personal history of nicotine dependence; Z20.828 Contact with and (suspected) exposure to other viral communicable diseases
CPT/HCPCS: 87081; 87430; 87502; 99284; U0003

== ENCOUNTER 2020-10-04 19:15 | Emergency (ER) | payer OTHER ==
[2020-10-04] MEDS ORDERED: SODIUM CHLORIDE 0.9% 1,000 ML IV STA ×2 (19:33→20:22)
[2020-10-04] MEDS ORDERED: ONDANSETRON 4 MG/2 ML VIAL IVP STA (19:33)
[2020-10-04] MEDS ORDERED: ACETAMINOPHEN TAB 500 MG TAB PO STA (19:37)
--- NOTE | 2020-10-04 19:53 | ED ---
General Adult HPI - General Chief complaint: Nausea/Vomiting/Diarrhea Stated complaint: recheck - congestion, fever Time Seen by Provider: 10/04/20 19:24 Source: patient, RN notes reviewed Mode of arrival: ambulatory Limitations: no limitations - History of Present Illness Initial comments: 25-year-old female presents to the emergency determine for chief complaint of nausea vomiting. Patient reports that for the past several days she has had a cough and congestion. She denies any significant soreness of breath. She reports she had a fever yesterday up to 101. Patient reports that she tried to take Tylenol today but vomited this up. Patient did not take any other antipyretics. Patient had a negative influenza and strep yesterday. She is wa iting on culture and PCR. Patient reports she came today because she had new symptoms of nausea vomiting and has vomited 7 times today. She denies any abdominal pain. She denies any significant shortness of breath.Patient has no other complaints at this time including shortness of breath, chest pain, abdominal pain, headache, or visual changes. - Related Data Home Medications Medication Instructions Recorded Confirmed Ranitidine HCl [Zantac] 150 mg PO DAILY 06/14/16 01/20/18 Escitalopram [Lexapro] 5 mg PO DAILY 12/19/16 01/20/18 Cholecalciferol (Vitamin D3) 2,000 unit PO DAILY 01/20/18 01/20/18 [Vitamin D3] Loratadine [Claritin] 10 mg PO DAILY 01/20/18 01/20/18 Previous Rx's Medication Instructions Recorded Ibuprofen [Motrin] 400 mg PO Q4H #20 tab 01/20/18 Amoxicillin/Potassium Clav 1 each PO Q12HR #20 tab 01/26/18 [Augmentin 875-125 Tablet] Fluticasone Propionate [Flonase 1 - 2 spray EA NOSTRIL DAILY 5 01/26/18 Allergy Relief] Days ml Benzonatate [Tessalon Perles] 100 mg PO TID PRN #14 capsule 04/07/18 RX: Albuterol Inhaler (u) 1 - 2 puff INHALATION RT-Q6H PRN 04/07/18 [Ventolin Hfa Inhaler (u)] #1 inhaler RX: Amoxicillin 875 mg PO Q12HR #20 tablet 04/07/18 RX: Amoxicillin 500 mg PO Q8H #30 capsule 03/19/20 Ondansetron Odt [Zofran ODT] 4 mg PO Q8HR PRN #20 tab 03/20/20 RX: Azithromycin [Zithromax Z-pack 250 mg PO DIRECTED #6 tab 10/03/20 (6 tabs)] RX: Fluconazole [Diflucan] 150 mg PO ONCE #3 tab 10/03/20 Cephalexin [Keflex] 500 mg PO Q6HR 14 Days #56 cap 10/04/20 Ondansetron [Zofran ODT] 4 mg PO Q8HR PRN #15 tab 10/04/20 Allergies Allergy/AdvReac Type Severity Reaction Status Date / Time No Known Allergies Allergy Verified 10/04/20 19:19 Review of Systems ROS Statement: Those systems with pertinent positive or pertinent negative responses have been documented in the HPI. ROS Other: All systems not noted in ROS Statement are negative. Past Medical History Past Medical History: GERD/Reflux Additional Past Medical History / Comment(s): hiatal hernia History of Any Multi-Drug Resistant Organisms: None Reported Past Surgical History: No Surgical Hx Reported Past Psychological History: Anxiety, Depression Smoking Status: Former smoker, Vaper Past Alcohol Use History: Occasional Past Drug Use History: None Reported General Exam Limitations: no limitations General appearance: alert, in no apparent distress Head exam: Present: atraumatic, normocephalic, normal inspection Eye exam: Present: normal appearance, PERRL, EOMI. Absent: scleral icterus, conjunctival injection, periorbital swelling ENT exam: Present: normal exam, mucous membranes moist Neck exam: Present: normal inspection, full ROM. Absent: tenderness, meningismus, lymphadenopathy Respiratory exam: Present: normal lung sounds bilaterally. Absent: respiratory distress, wheezes, rales, rhonchi, stridor Cardiovascular Exam: Present: regular rate, normal rhythm, normal heart sounds. Absent: systolic murmur, diastolic murmur, rubs, gallop, clicks GI/Abdominal exam: Present: soft, normal bowel sounds. Absent: distended, tenderness, guarding, rebound, rigid Neurological exam: Present: alert Course Vital Signs 10/04/20 19:16 Temperature 99.4 F Pulse Rate 103 H Respiratory 20 Rate Blood Pressure 110/68 O2 Sat by Pulse 98 Oximetry Medical Decision Making - Medical Decision Making Vitals are stable here in the emergency room. Patient is afebrile. She does not have any abdominal tenderness or shortness of breath. She does have nausea while in the ER. CBC did show leukocytosis with a left shift. CMP is unremarkable. Urinalysis does show greater than 182 white blood cells. Patient does not have any back pain but does have some mild CVA tenderness bilaterally. Influenza and strep were negative yesterday. Coronavirus and chest x-ray are negative today patient was treated for a pyelonephritis with 2 L of saline and 2 g of Rocephin. Urine culture pending. Patient was given Zofran and did pass and tolerate oral challenge test. She is feeling much better and will be discharged home with antibiotic therapy. She will return here for worsening symptoms especially if she cannot keep down her antibiotics. She will follow up with her doctor on Tuesday. - Lab Data Result diagrams: 10/04/20 19:52 10/04/20 19:52 Lab Results 10/04/20 10/04/20 10/04/20 Range/Units 19:52 19:52 19:52 WBC 13.5 H (3.8-10.6) k/uL RBC 4.66 (3.80-5.40) m/uL Hgb 14.4 (11.4-16.0) gm/dL Hct 43.8 (34.0-46.0) % MCV 94.0 (80.0-100.0) fL MCH 31.0 (25.0-35.0) pg MCHC 33.0 (31.0-37.0) g/dL RDW 11.7 (11.5-15.5) % Plt Count 221 (150-450) k/uL Neutrophils % 88 % Lymphocytes % 7 % Monocytes % 3 % Eosinophils % 1 % Basophils % 1 % Neutrophils # 11.9 H (1.3-7.7) k/uL Lymphocytes # 0.9 L (1.0-4.8) k/uL Monocytes # 0.4 (0-1.0) k/uL Eosinophils # 0.1 (0-0.7) k/uL Basophils # 0.1 (0-0.2) k/uL Sodium 138 (137-145) mmol/L Potassium 4.1 (3.5-5.1) mmol/L Chloride 106 (98-107) mmol/L Carbon Dioxide 25 (22-30) mmol/L Anion Gap 7 mmol/L BUN 11 (7-17) mg/dL Creatinine 0.74 (0.52-1.04) mg/dL Est GFR (CKD-EPI)AfAm >90 (>60 ml/min/1.73 sqM) Est GFR (CKD-EPI)NonAf >90 (>60 ml/min/1.73 sqM) Glucose 108 H (74-99) mg/dL Calcium 9.5 (8.4-10.2) mg/dL Total Bilirubin 0.4 (0.2-1.3) mg/dL AST 19 (14-36) U/L ALT 14 (4-34) U/L Alkaline Phosphatase 63 (38-126) U/L Total Protein 7.1 (6.3-8.2) g/dL Albumin 4.1 (3.5-5.0) g/dL Amylase 48 (30-110) U/L Lipase 56 (23-300) U/L Urine Color Yellow Urine Appearance Turbid H (Clear) Urine pH 8.0 (5.0-8.0) Ur Specific [place] 1.026 (1.001-1.035) Urine Protein 1+ H (Negative) Urine Glucose (UA) Negative (Negative) Urine Ketones Negative (Negative) Urine Blood Negative (Negative) Urine Nitrite Negative (Negative) Urine Bilirubin Negative (Negative) Urine Urobilinogen 6.0 (<2.0) mg/dL Ur Leukocyte Esterase Large H (Negative) Urine RBC 16 H (0-5) /hpf Urine WBC >182 H (0-5) /hpf Urine WBC Clumps Many H (None) /hpf Ur Squamous Epith Cells 21 H (0-4) /hpf Ur Renal Epithelial Cell 60 (0) /hpf Amorphous Sediment Rare H (None) /hpf Urine Bacteria Moderate H (None) /hpf Urine Mucus Few H (None) /hpf Urine HCG, Qual (Not Detectd) Coronavirus (PCR) (Not Detectd) 10/04/20 10/04/20 Range/Units 19:52 19:52 WBC (3.8-10.6) k/uL RBC (3.80-5.40) m/uL Hgb (11.4-16.0) gm/dL Hct (34.0-46.0) % MCV (80.0-100.0) fL MCH (25.0-35.0) pg MCHC (31.0-37.0) g/dL RDW (11.5-15.5) % Plt Count (150-450) k/uL Neutrophils % % Lymphocytes % % Monocytes % % Eosinophils % % Basophils % % Neutrophils # (1.3-7.7) k/uL Lymphocytes # (1.0-4.8) k/uL Monocytes # (0-1.0) k/uL Eosinophils # (0-0.7) k/uL Basophils # (0-0.2) k/uL Sodium (137-145) mmol/L Potassium (3.5-5.1) mmol/L Chloride (98-107) mmol/L Carbon Dioxide (22-30) mmol/L Anion Gap mmol/L BUN (7-17) mg/dL Creatinine (0.52-1.04) mg/dL Est GFR (CKD-EPI)AfAm (>60 ml/min/1.73 sqM) Est GFR (CKD-EPI)NonAf (>60 ml/min/1.73 sqM) Glucose (74-99) mg/dL Calcium (8.4-10.2) mg/dL Total Bilirubin (0.2-1.3) mg/dL AST (14-36) U/L ALT (4-34) U/L Alkaline Phosphatase (38-126) U/L Total Protein (6.3-8.2) g/dL Albumin (3.5-5.0) g/dL Amylase (30-110) U/L Lipase (23-300) U/L Urine Color Urine Appearance (Clear) Urine pH (5.0-8.0) Ur Specific [place] (1.001-1.035) Urine Protein (Negative) Urine Glucose (UA) (Negative) Urine Ketones (Negative) Urine Blood (Negative) Urine Nitrite (Negative) Urine Bilirubin (Negative) Urine Urobilinogen (<2.0) mg/dL Ur Leukocyte Esterase (Negative) Urine RBC (0-5) /hpf Urine WBC (0-5) /hpf Urine WBC Clumps (None) /hpf Ur Squamous Epith Cells (0-4) /hpf Ur Renal Epithelial Cell (0) /hpf Amorphous Sediment (None) /hpf Urine Bacteria (None) /hpf Urine Mucus (None) /hpf Urine HCG, Qual Not Detected (Not Detectd) Coronavirus (PCR) Not Detected (Not Detectd) Disposition Clinical Impression: Pyelonephritis Disposition: HOME SELF-CARE Condition: Good Instructions (If sedation given, give patient instructions): Kidney Infection (ED) Additional Instructions: Please discontinue azithromycin and take Keflex instead. You can start this tomorrow morning. This was prescribed to your pharmacy. Take Zofran as needed for nausea. Take Motrin and Tylenol for pain and fever. It may help to take these after you take your Zofran. Drink plenty of fluids. If you are having worsening symptoms or cannot keep down your antibiotics you need to return to the emergency room. Prescriptions: Cephalexin [Keflex] 500 mg PO Q6HR 14 Days #56 cap Ondansetron [Zofran ODT] 4 mg PO Q8HR PRN #15 tab PRN Reason: Nausea Is patient prescribed a controlled substance at d/c from ED?: No Referrals: Alyssa Rahman MD [Primary Care Provider] - 1-2 days Time of Disposition: 20:57
[2020-10-04 20:07] LABS: Basophils # (A) 0.1 k/uL (0-0.2); Basophils % (A) 1 %; Eosinophils # (A) 0.1 k/uL (0-0.7); Eosinophils % (A) 1 %; HCT 43.8 % (34.0-46.0); HGB 14.4 gm/dL (11.4-16.0); Lymphocytes # (A) 0.9 k/uL (1.0-4.8); Lymphocytes % (A) 7 %; Mean Platelet Volume 8.7; Monocytes # (A) 0.4 k/uL (0-1.0); Monocytes % (A) 3 %; Neutrophils # (A) 11.9 k/uL (1.3-7.7); Neutrophils % (A) 88 %; Platelet Count 221 k/uL (150-450); RBC 4.66 m/uL (3.80-5.40); RDW 11.7 % (11.5-15.5); WBC 13.5 k/uL (3.8-10.6)
[2020-10-04 20:15] LABS: ALT 14 U/L (4-34); AST 19 U/L (14-36); African American GFR (CKD) >90 (>60 ml/min/1.73 sqM); Albumin 4.1 g/dL (3.5-5.0); Alkaline Phosphatase 63 U/L (38-126); Amorphous Sediment,Urine Rare /hpf; Amylase 48 U/L (30-110); Anion Gap 7 mmol/L; Appearance,Urine Turbid (Clear); Bacteria,Urine Moderate /hpf; Bilirubin,Urine Negative (Negative); Blood Urea Nitrogen 11 mg/dL (7-17); Blood,Urine Negative (Negative); Calcium 9.5 mg/dL (8.4-10.2); Carbon Dioxide 25 mmol/L (22-30); Chloride 106 mmol/L (98-107); Color,Urine Yellow; Glucose 108 mg/dL (74-99); Glucose,Urine (UA) Negative (Negative); Ketones,Urine Negative (Negative); Leukocyte Esterase,Urine Large (Negative); Lipase 56 U/L (23-300); Mucus,Urine Few /hpf; Nitrite,Urine Negative (Negative); Non-African American GFR(CKD) >90 (>60 ml/min/1.73 sqM); Potassium 4.1 mmol/L (3.5-5.1); Protein,Urine 1+ (Negative); RBC,Urine 16 /hpf (0-5); Renal Epithelial Cells,Urine 60 /hpf (0); Sodium 138 mmol/L (137-145); Specific Gravity,Urine 1.026 (1.001-1.035); Squamous Epithelial Cell,Urine 21 /hpf (0-4); Total Bilirubin 0.4 mg/dL (0.2-1.3); Total Protein 7.1 g/dL (6.3-8.2); WBC,Urine >182 /hpf (0-5)
[2020-10-04] MEDS ORDERED: cefTRIAXone IN SWFI 1,000 MG/10 ML SYRINGE IVP STA (20:22)
--- NOTE | 2020-10-04 20:22 | XR ---
EXAMINATION TYPE: XR chest 1V portable DATE OF EXAM: 10/04/2020 COMPARISON: 04/07/2018 HISTORY: Cough TECHNIQUE: FINDINGS: Heart and mediastinum are normal. Lungs are clear. Diaphragm is normal. Bony thorax appears normal. IMPRESSION: Normal chest. No change.
[2020-10-04] MEDS ORDERED: ONDANSETRON 4 MG ODT STARTER PACK 2 TAB BTL PO STA (21:01)
[2020-10-04] MEDS ORDERED: CEPHALEXIN 500MG STARTER PACK 4 CAP BTL PO STA (21:01)
[2020-10-04 21:34] VITALS: BP 105/61; PULSE 83; RESP 18; TEMP 98.2
== END 2020-10-04 21:39 | disposition home or self-care (01) ==
LOC: EC 19:15
DX: N12 Tubulo-interstitial nephritis, not specified as acute or chronic (principal); F41.9 Anxiety disorder, unspecified; F32.9 Major depressive disorder, single episode, unspecified; Z79.899 Other long term (current) drug therapy; Z87.891 Personal history of nicotine dependence
CPT/HCPCS: 36415; 80053; 82150; 83690; 85025; 81001; 81025; 87086; 87635; 71045; 99283; 96374; 96375; 96361 ×2; J2405; J0696; S0119

== ENCOUNTER 2020-11-07 18:28 | Emergency (ER) | payer OTHER ==
[2020-11-07 18:46] VITALS: BP 119/75; PULSE 89; RESP 18; TEMP 99
[2020-11-07] MEDS ORDERED: ETODOLAC 400 MG TAB PO STA (19:05)
[2020-11-07] MEDS ORDERED: LIDOCAINE 5% PATCH TOPICAL STA (19:05)
--- NOTE | 2020-11-07 19:10 | ED ---
General Adult HPI - General Chief complaint: Extremity Injury, Lower Stated complaint: lt knee pain Time Seen by Provider: 11/07/20 18:48 Source: patient Mode of arrival: ambulatory - History of Present Illness Initial comments: Dictation was produced using [employer] dictation software. please excuse any grammatical, word or spelling errors. This patient was cared for during a federal and state declared state of emergency secondary to Covid 19 Chief Complaint: 25-year-old female presents with atraumatic left knee pain History of Present Illness: [id number] female for several weeks she's been suffering from atraumatic left knee pain. She states her pain is intermittent. She feels that her pain is worse whenever she ambulates. She's been trying to w alk in a semiflexed any position. Patient denies any trauma to the knee. She states that she feels like when he would give out or lock and catch at certain times. Denies any clicking sensation. No fever, chills or night sweats. She localizes the pain to just behind her left knee. The ROS documented in this emergency department record has been reviewed and confirmed by me. Those systems with pertinent positive or negative responses have been documented in the HPI. All other systems are other negative and/or noncontributory. PHYSICAL EXAM: General Impression: Alert and oriented x3, not in acute distress HEENT: Normocephalic atraumatic, extra-ocular movements intact, pupils equal and reactive to light bilaterally, mucous membranes moist. Cardiovascular: Heart regular rate and rhythm Chest: Able to complete full sentences, no retractions, no tachypnea Abdomen: abdomen soft, non-tender, non-distended, no organomegaly Musculoskeletal: Pulses present and equal in all extremities, no peripheral edema Left knee: No knee effusion, skin around the knee is atraumatic without any changes, flexion and extension passive range of motion is intact. No friction or clicking felt with knee extension or flexion with external or internal rotation Motor: no focal deficits noted Neurological: CN II-XII grossly intact, no focal motor or sensory deficits noted Skin: Intact with no visualized rashes Psych: Normal affect and mood ED course: 25-year-old female presents with several days of atraumatic left knee pain. Signs upon arrival are within acceptable limits. Physical examination is benign. X-rays unremarkable. patient reevaluated after administration analgesics with similar symptoms. Patient currently stable. Patient is weightbearing as tolerated. Patient given referral to orthopedic surgery. - Related Data Home Medications Medication Instructions Recorded Confirmed Ranitidine HCl [Zantac] 150 mg PO DAILY 06/14/16 01/20/18 Escitalopram [Lexapro] 5 mg PO DAILY 12/19/16 01/20/18 Cholecalciferol (Vitamin D3) 2,000 unit PO DAILY 01/20/18 01/20/18 [Vitamin D3] Loratadine [Claritin] 10 mg PO DAILY 01/20/18 01/20/18 Previous Rx's Medication Instructions Recorded Ibuprofen [Motrin] 400 mg PO Q4H #20 tab 01/20/18 Amoxicillin/Potassium Clav 1 each PO Q12HR #20 tab 01/26/18 [Augmentin 875-125 Tablet] Fluticasone Propionate [Flonase 1 - 2 spray EA NOSTRIL DAILY 5 01/26/18 Allergy Relief] Days ml Albuterol Inhaler (u) [Ventolin 1 - 2 puff INHALATION RT-Q6H PRN 04/07/18 Hfa Inhaler (u)] #1 inhaler Amoxicillin 875 mg PO Q12HR #20 tablet 04/07/18 Benzonatate [Tessalon Perles] 100 mg PO TID PRN #14 capsule 04/07/18 Amoxicillin 500 mg PO Q8H #30 capsule 03/19/20 Ondansetron Odt [Zofran ODT] 4 mg PO Q8HR PRN #20 tab 03/20/20 Azithromycin [Zithromax Z-pack (6 250 mg PO DIRECTED #6 tab 10/03/20 tabs)] Fluconazole [Diflucan] 150 mg PO ONCE #3 tab 10/03/20 Cephalexin [Keflex] 500 mg PO Q6HR 14 Days #56 cap 10/04/20 Ondansetron [Zofran ODT] 4 mg PO Q8HR PRN #15 tab 10/04/20 Allergies Allergy/AdvReac Type Severity Reaction Status Date / Time No Known Allergies Allergy Verified 10/04/20 19:19 Review of Systems ROS Statement: Those systems with pertinent positive or pertinent negative responses have been documented in the HPI. ROS Other: All systems not noted in ROS Statement are negative. Past Medical History Past Medical History: GERD/Reflux Additional Past Medical History / Comment(s): hiatal hernia History of Any Multi-Drug Resistant Organisms: None Reported Past Surgical History: No Surgical Hx Reported Past Psychological History: Anxiety, Depression Smoking Status: Former smoker, Vaper Past Alcohol Use History: Occasional Past Drug Use History: None Reported Course Vital Signs 11/07/20 18:41 Temperature 99 F Pulse Rate 89 Respiratory 18 Rate Blood Pressure 119/75 O2 Sat by Pulse 100 Oximetry Disposition Clinical Impression: Knee pain Disposition: HOME SELF-CARE Condition: Good Instructions (If sedation given, give patient instructions): Knee Pain (ED) Is patient prescribed a controlled substance at d/c from ED?: No Referrals: Ghanshyam Neri DO [Doctor of Osteopathic Medicine] - 1-2 days Time of Disposition: 19:47
--- NOTE | 2020-11-07 19:41 | XR ---
EXAMINATION TYPE: XR knee complete LT DATE OF EXAM: 11/07/2020 COMPARISON: NONE HISTORY: Knee pain TECHNIQUE: 3 views FINDINGS: I see no fracture nor dislocation. Joint spaces are normal. There is no sign of knee joint effusion IMPRESSION: Negative left knee exam.
== END 2020-11-07 20:10 | disposition home or self-care (01) ==
LOC: EC 18:28
DX: M25.562 Pain in left knee (principal); K21.9 Gastro-esophageal reflux disease without esophagitis; F41.9 Anxiety disorder, unspecified; F32.9 Major depressive disorder, single episode, unspecified; Z79.899 Other long term (current) drug therapy; F17.290 Nicotine dependence, other tobacco product, uncomplicated; Z87.19 Personal history of other diseases of the digestive system
CPT/HCPCS: 99283

== ENCOUNTER → 2021-03-04 | Outpatient (CLI) | payer OTHER | END | disposition home or self-care (01) | LOC: LABWHC1 13:26 | PROVIDERS: ATTEND Family Medicine | DX: Z20.822 Contact with and (suspected) exposure to COVID-19 (principal); R53.83 Other fatigue; R43.2 Parageusia | CPT/HCPCS: U0003; C9803; U0005 ==

== ENCOUNTER 2021-05-19 20:31 | Emergency (ER) | payer OTHER ==
[2021-05-19 21:25] VITALS: TEMP 100.3
[2021-05-19] MEDS ORDERED: SODIUM CHLORIDE 0.9% 1,000 ML IV STA (21:40)
[2021-05-19] MEDS ORDERED: ACETAMINOPHEN TAB 500 MG TAB PO STA (21:40)
[2021-05-19] MEDS ORDERED: ONDANSETRON 4 MG/2 ML VIAL IVP STA (21:41)
[2021-05-19 21:43] LABS: Appearance,Urine Clear (Clear); Bilirubin,Urine Negative (Negative); Blood,Urine Negative (Negative); Color,Urine Yellow; Glucose,Urine (UA) Negative (Negative); Ketones,Urine 1+ (Negative); Leukocyte Esterase,Urine Negative (Negative); Nitrite,Urine Negative (Negative); PH, Urine 5.5 (5.0-8.0); Protein,Urine Trace (Negative); Specific Gravity,Urine 1.034 (1.001-1.035); Urobilinogen,Urine <2.0 mg/dL (<2.0)
[2021-05-19 21:46] LABS: Basophils % (A) 0 %; Eosinophils # (A) 0.2 k/uL (0-0.7); Eosinophils % (A) 2 %; HCT 43.6 % (34.0-46.0); HGB 15.2 gm/dL (11.4-16.0); Lymphocytes # (A) 0.4 k/uL (1.0-4.8); Lymphocytes % (A) 3 %; MCH 31.1 pg (25.0-35.0); MCHC 34.8 g/dL (31.0-37.0); MCV 89.4 fL (80.0-100.0); Monocytes # (A) 0.3 k/uL (0-1.0); Monocytes % (A) 3 %; Neutrophils # (A) 9.8 k/uL (1.3-7.7); Neutrophils % (A) 91 %; Platelet Count 179 k/uL (150-450); RBC 4.88 m/uL (3.80-5.40); RDW 11.6 % (11.5-15.5); WBC 10.8 k/uL (3.8-10.6)
[2021-05-19 21:52] LABS: ALT 20 U/L (4-34); AST 29 U/L (14-36); African American GFR (CKD) >90 (>60 ml/min/1.73 sqM); Albumin 4.4 g/dL (3.5-5.0); Alkaline Phosphatase 51 U/L (38-126); Amylase 79 U/L (30-110); Anion Gap 8 mmol/L; Blood Urea Nitrogen 17 mg/dL (7-17); Calcium 9.3 mg/dL (8.4-10.2); Carbon Dioxide 26 mmol/L (22-30); Chloride 105 mmol/L (98-107); Glucose 111 mg/dL (74-99); Lipase 76 U/L (23-300); Non-African American GFR(CKD) >90 (>60 ml/min/1.73 sqM); Potassium 4.4 mmol/L (3.5-5.1); Sodium 139 mmol/L (137-145); Total Bilirubin 0.5 mg/dL (0.2-1.3); Total Protein 7.1 g/dL (6.3-8.2)
--- NOTE | 2021-05-19 23:10 | ED ---
General Adult HPI - General Chief complaint: Nausea/Vomiting/Diarrhea Stated complaint: N/V Time Seen by Provider: 05/19/21 21:07 Source: patient, police Mode of arrival: ambulatory Limitations: no limitations - History of Present Illness Initial comments: 25-year-old female presents to the emergency room for a chief, no vomiting. Patient has had nausea vomiting for the past 3 hours. Patient reports that she also started to have body aches. Patient denies diarrhea. She denies abdominal pain. Patient denies cough congestion sore throat.Patient has no other complaints at this time including shortness of breath, chest pain, abdominal pain, nausea or vomiting, headache, or visual changes. - Related Data Home Medications Medication Instructions Recorded Confirmed Cetirizine HCl 10 mg PO DAILY PRN 05/19/21 05/19/21 Escitalopram [Lexapro] 20 mg PO DAILY 05/19/21 05/19/21 Norgestimate-Ethinyl Estradiol 1 tab PO DAILY 05/19/21 05/19/21 [Sprintec 28 Day Tablet] traZODone HCL [Desyrel] 50 mg PO HS PRN 05/19/21 05/19/21 Previous Rx's Medication Instructions Recorded Ondansetron [Zofran ODT] 4 mg PO Q8HR PRN #15 tab 05/19/21 Allergies Allergy/AdvReac Type Severity Reaction Status Date / Time No Known Allergies Allergy Verified 05/19/21 21:56 Review of Systems ROS Statement: Those systems with pertinent positive or pertinent negative responses have been documented in the HPI. ROS Other: All systems not noted in ROS Statement are negative. Past Medical History Past Medical History: GERD/Reflux Additional Past Medical History / Comment(s): hiatal hernia History of Any Multi-Drug Resistant Organisms: None Reported Past Surgical History: No Surgical Hx Reported Past Psychological History: Anxiety, Depression Smoking Status: Former smoker, Vaper Past Alcohol Use History: Occasional Past Drug Use History: None Reported General Exam Limitations: no limitations General appearance: alert, in no apparent distress Head exam: Present: atraumatic, normocephalic, normal inspection Eye exam: Present: normal appearance, PERRL, EOMI. Absent: scleral icterus, conjunctival injection, periorbital swelling ENT exam: Present: normal exam, mucous membranes moist Neck exam: Present: normal inspection. Absent: tenderness, meningismus, lymphadenopathy Respiratory exam: Present: normal lung sounds bilaterally. Absent: respiratory distress, wheezes, rales, rhonchi, stridor Cardiovascular Exam: Present: regular rate, normal rhythm, normal heart sounds. Absent: systolic murmur, diastolic murmur, rubs, gallop, clicks GI/Abdominal exam: Present: soft, normal bowel sounds. Absent: distended, tenderness, guarding, rebound, rigid Expanded GI/Abdominal exam: Absent: obturator sign, heel tap sign, Rowan's sign, Rovsing's sign, tenderness at McBurney's Point Course Vital Signs 05/19/21 05/19/21 20:33 21:24 Temperature 98.2 F 100.3 F H Pulse Rate 106 H Respiratory 16 Rate Blood Pressure 120/80 O2 Sat by Pulse 100 Oximetry Medical Decision Making - Medical Decision Making Patient presents with a low-grade fever of 100.3. Has not had Motrin or Tylenol prior to arrival. CBC shows mildly the psychosis. Likely secondary to vomiti ng. CMP unremarkable. Urinalysis does not show evidence of infection. Coronavirus is negative. At this time she does not have any abdominal pain or tenderness whatsoever. Discussed that at this time we will treat patient's symptoms. However discussed strep return parameters for abdominal pain or any other new symptoms. Patient is agreeable to this. She will return for any worsening symptoms. She will follow-up with her doctor. We will give her Zofran for home.I discussed this case with attending Dr. Johnston who agrees with this assessment and treatment plan. - Lab Data Result diagrams: 05/19/21 21:36 05/19/21 21:36 Lab Results 05/19/21 05/19/21 05/19/21 Range/Units 21:20 21:20 21:36 WBC 10.8 H (3.8-10.6) k/uL RBC 4.88 (3.80-5.40) m/uL Hgb 15.2 (11.4-16.0) gm/dL Hct 43.6 (34.0-46.0) % MCV 89.4 (80.0-100.0) fL MCH 31.1 (25.0-35.0) pg MCHC 34.8 (31.0-37.0) g/dL RDW 11.6 (11.5-15.5) % Plt Count 179 (150-450) k/uL MPV 9.0 Neutrophils % 91 % Lymphocytes % 3 % Monocytes % 3 % Eosinophils % 2 % Basophils % 0 % Neutrophils # 9.8 H (1.3-7.7) k/uL Lymphocytes # 0.4 L (1.0-4.8) k/uL Monocytes # 0.3 (0-1.0) k/uL Eosinophils # 0.2 (0-0.7) k/uL Basophils # 0.0 (0-0.2) k/uL Sodium (137-145) mmol/L Potassium (3.5-5.1) mmol/L Chloride (98-107) mmol/L Carbon Dioxide (22-30) mmol/L Anion Gap mmol/L BUN (7-17) mg/dL Creatinine (0.52-1.04) mg/dL Est GFR (CKD-EPI)AfAm (>60 ml/min/1.73 sqM) Est GFR (CKD-EPI)NonAf (>60 ml/min/1.73 sqM) Glucose (74-99) mg/dL Plasma Lactic Acid Brooks (0.7-2.0) mmol/L Calcium (8.4-10.2) mg/dL Total Bilirubin (0.2-1.3) mg/dL AST (14-36) U/L ALT (4-34) U/L Alkaline Phosphatase (38-126) U/L Total Protein (6.3-8.2) g/dL Albumin (3.5-5.0) g/dL Amylase (30-110) U/L Lipase (23-300) U/L Urine Color Yellow Urine Appearance Clear (Clear) Urine pH 5.5 (5.0-8.0) Ur Specific [place] 1.034 (1.001-1.035) Urine Protein Trace H (Negative) Urine Glucose (UA) Negative (Negative) Urine Ketones 1+ H (Negative) Urine Blood Negative (Negative) Urine Nitrite Negative (Negative) Urine Bilirubin Negative (Negative) Urine Urobilinogen <2.0 (<2.0) mg/dL Ur Leukocyte Esterase Negative (Negative) Urine HCG, Qual Not Detected (Not Detectd) Coronavirus (PCR) (Not Detectd) 05/19/21 05/19/2105/19/21 Range/Units 21:36 21:36 21:36 WBC (3.8-10.6) k/uL RBC (3.80-5.40) m/uL Hgb (11.4-16.0) gm/dL Hct (34.0-46.0) % MCV (80.0-100.0) fL MCH (25.0-35.0) pg MCHC (31.0-37.0) g/dL RDW (11.5-15.5) % Plt Count (150-450) k/uL MPV Neutrophils % % Lymphocytes % % Monocytes % % Eosinophils % % Basophils % % Neutrophils # (1.3-7.7) k/uL Lymphocytes # (1.0-4.8) k/uL Monocytes # (0-1.0) k/uL Eosinophils # (0-0.7) k/uL Basophils # (0-0.2) k/uL Sodium 139 (137-145) mmol/L Potassium 4.4 (3.5-5.1) mmol/L Chloride 105 (98-107) mmol/L Carbon Dioxide 26 (22-30) mmol/L Anion Gap 8 mmol/L BUN 17 (7-17) mg/dL Creatinine 0.70 (0.52-1.04) mg/dL Est GFR (CKD-EPI)AfAm >90 (>60 ml/min/1.73 sqM) Est GFR (CKD-EPI)NonAf >90 (>60 ml/min/1.73 sqM) Glucose 111 H (74-99) mg/dL Plasma Lactic Acid Brooks 0.8 (0.7-2.0) mmol/L Calcium 9.3 (8.4-10.2) mg/dL Total Bilirubin 0.5 (0.2-1.3) mg/dL AST 29 (14-36) U/L ALT 20 (4-34) U/L Alkaline Phosphatase 51 (38-126) U/L Total Protein 7.1 (6.3-8.2) g/dL Albumin 4.4 (3.5-5.0) g/dL Amylase 79 (30-110) U/L Lipase 76 (23-300) U/L Urine Color Urine Appearance (Clear) Urine pH (5.0-8.0) Ur Specific [place] (1.001-1.035) Urine Protein (Negative) Urine Glucose (UA) (Negative) Urine Ketones (Negative) Urine Blood (Negative) Urine Nitrite (Negative) Urine Bilirubin (Negative) Urine Urobilinogen (<2.0) mg/dL Ur Leukocyte Esterase (Negative) Urine HCG, Qual (Not Detectd) Coronavirus (PCR) Not Detected (Not Detectd) Disposition Clinical Impression: Nausea & vomiting, Fever Disposition: HOME SELF-CARE Condition: Good Instructions (If sedation given, give patient instructions): Acute Nausea and Vomiting (ED), Fever in Adults (ED) Additional Instructions: Please drink plenty of fluids. Take Motrin and Tylenol for pain. Take Zofran as needed for nausea. Follow-up with your doctor. If symptoms are worsening or you notice abdominal pain return immediately to the emergency room. Prescriptions: Ondansetron [Zofran ODT] 4 mg PO Q8HR PRN #15 tab PRN Reason: Nausea Is patient prescribed a controlled substance at d/c from ED?: No Referrals: Alyssa Rahman MD [Primary Care Provider] - 1-2 days Time of Disposition: 23:10
[2021-05-19 23:56] VITALS: BP 121/74; PULSE 87; RESP 18
[2021-05-20 15:20] LABS: N. gonorrhoeae,PCR Negative (Neg,Equiv); Neisseria Source Urine
[2021-05-20 15:36] LABS: C. trachomatis,PCR Negative (Neg,Equiv); Chlamydia trachomatis Source Urine
== END 2021-05-19 23:56 | disposition home or self-care (01) ==
LOC: EC 20:31
DX: R11.2 Nausea with vomiting, unspecified (principal); R50.9 Fever, unspecified; R52 Pain, unspecified; K21.9 Gastro-esophageal reflux disease without esophagitis; F32.9 Major depressive disorder, single episode, unspecified; F41.9 Anxiety disorder, unspecified; Z79.899 Other long term (current) drug therapy; Z87.891 Personal history of nicotine dependence; Z20.822 Contact with and (suspected) exposure to COVID-19
CPT/HCPCS: 36415; 80053; 82150; 83605; 83690; 85025; 81003; 81025; 87491; 87591; 87635; 99284; 96374; 96361; J2405

== ENCOUNTER 2022-08-07 12:25 | Outpatient (CLI) | payer OTHER ==
[2022-08-07] MEDS ORDERED: LACTATED RINGERS 1,000 ML IV SCH (13:15)
[2022-08-07 14:18] VITALS: BP 134/71; PULSE 87; RESP 18; TEMP 98.1
--- NOTE | 2022-08-10 07:34 | P.MSEPDOC ---
Presenting Problems - Arrival Data Date of Arrival on Unit: 08/07/22 Time of Arrival on Unit: 12:25 Mode of Transport: Ambulatory - Complaint OB-Reason for Admission/Chief Complaint: Possible Onset of Labor Comment: pt feeling cramping since yesterday since 1400 pt states about every 15 minutes, pt states she is also having spotting since intercourse at 0200 Medical History - Information : 1 Para: 0 Term: 0 : 0 Abortions: Spontaneous or Elective: 0 Number of Living Children: 0 - Gestational Age Gestational Age by GÓMEZ (wks/days): 30 Weeks and 3 Days Review of Systems - Review of Systems Constitutional: No problems Breast: No problems ENT: No problems Cardiovascular: No problems Respiratory: No problems Gastrointestinal: No problems Genitourinary: No problems Musculoskeletal: No problems Neurological: No problems Skin: No problems Vital Signs - Temperature Temperature: 98.1 F Temperature Source: Axillary - Pulse Right Pulse Oximetery Pulse Rate: 87 Pulse Assessment Method: Pulse Oximetry - Respirations Respiratory Rate: 18 Oxygen Delivery Method: Room Air O2 Sat by Pulse Oximetry: 99 - Blood Pressure Right Arm Blood Pressure: 134/71 Blood Pressure Mean: 92 Blood Pressure Source: Automatic Cuff Medical Screen Scoring - Cervical Exam Dilation (cm): 1 Effacement (%): 0 Station: -4 Membranes: Intact - Uterine Contractions Frequency From (mins): 2 Frequency To (mins): 3 Duration From (seconds): 40 Duration To (seconds): 50 Intensity: Mild Resting: Soft to palpation - Assessment - Baby A Baseline FHR: 145 Heart Rate - NICHD Category: Category I (Normal) NST: Reactive Physician Notification - Physician Notified Physician Notified Date: 08/07/22 Physician Notified Time: 12:47 Physician: Shani Caceres New Order Received: Yes - Notification Comment Comment: Dr Caceres called and given report on pt contractions and dilation, IV fluids ordered and administered, contractions subsided and pt d/c'd home Maternal Triage Index - Maternal Triage Index Presenting for scheduled procedure w/no complaint: No - Stat/Priority 1 Stat Priority 1: No - Urgent/Priority 2 Urgent Priority 2: Yes Provider Notified: Shani Caceres Provider Notified Time: 12:47 Criteria Met for Priority 2: 30 3/7 weeks gestation with detectable uterine contractions on admission Disposition - Disposition OB Disposition: Discharge to home Discharge Date: 08/07/22 Discharge Time: 13:55 I agree with the RN Medical Screening Exam: Yes Case reviewed; plan agreed upon as documented in EMR&OBIX.: Yes Diagnosis: FALSE LABOR BEFORE 37 COMPLETED WEEKS OF GEST, THIRD TRI
== END 2022-08-07 13:55 | disposition home or self-care (01) ==
LOC: FBPOP 12:25
PROVIDERS: ATTEND Obstetrics & Gynecology
DX: O47.03 False labor before 37 completed weeks of gestation, third trimester (principal); Z3A.30 30 weeks gestation of pregnancy
CPT/HCPCS: 59025; 96360; G0463; 99213

== ENCOUNTER 2022-08-09 10:49 | Outpatient (CLI) | payer OTHER ==
[2022-08-09 12:00] VITALS: BP 131/71; PULSE 77; RESP 16; TEMP 97.2
[2022-08-09 12:31] LABS: Amorphous Sediment,Urine Rare /hpf; Appearance,Urine Cloudy (Clear); Bacteria,Urine Rare /hpf; Bilirubin,Urine Negative (Negative); Blood,Urine Negative (Negative); Color,Urine Light Yellow; Glucose,Urine (UA) Negative (Negative); Ketones,Urine Negative (Negative); Leukocyte Esterase,Urine Large (Negative); Mucus,Urine Rare /hpf; Nitrite,Urine Negative (Negative); PH, Urine 7.5 (5.0-8.0); Protein,Urine Negative (Negative); RBC,Urine 1 /hpf (0-5); Specific Gravity,Urine 1.013 (1.001-1.035); Squamous Epithelial Cell,Urine 16 /hpf (0-4); Urobilinogen,Urine <2.0 mg/dL (<2.0); WBC,Urine 4 /hpf (0-5)
--- NOTE | 2022-08-13 13:15 | P.MSEPDOC ---
Presenting Problems - Arrival Data Date of Arrival on Unit: 08/09/22 Time of Arrival on Unit: 10:49 Mode of Transport: Ambulatory - Complaint OB-Reason for Admission/Chief Complaint: Pain Comment: cramping Medical History - Information : 1 Para: 0 Term: 0 : 0 Abortions: Spontaneous or Elective: 0 Number of Living Children: 0 - Gestational Age Gestational Age by GÓMEZ (wks/days): 30 Weeks and 5 Days - History Comment: didelphys uterus Review of Systems - Review of Systems Constitutional: No problems Breast: No problems ENT: No problems Cardiovascular: No problems Respiratory: No problems Gastrointestinal: No problems Genitourinary: No problems Musculoskeletal: No problems Neurological: No problems Skin: No problems Vital Signs - Temperature Temperature: 97.2 F Temperature Source: Temporal Artery Scan - Pulse Right Sitting Pulse Rate: 77 Pulse Assessment Method: Automatic Cuff - Respirations Respiratory Rate: 16 Oxygen Delivery Method: Room Air O2 Sat by Pulse Oximetry: 98 - Blood Pressure Right Arm Blood Pressure: 131/71 Blood Pressure Mean: 91 Blood Pressure Source: Automatic Cuff Medical Screen Scoring - Cervical Exam Dilation (cm): 1 Membranes: Intact - Assessment - Baby A Baseline FHR: 135 Heart Rate - NICHD Category: Category I (Normal) NST: Reactive Physician Notification - Physician Notified Physician Notified Date: 08/09/22 Physician Notified Time: 11:39 Physician: Ximena Coffman New Order Received: Yes (ffn, urinalysis, vag exam) Maternal Triage Index - Urgent/Priority 2 Urgent Priority 2: Yes Provider Notified: Ximena Coffman Provider Notified Time: 11:39 Criteria Met for Priority 2: 30 5/7, reactive nst, vag exam 1 cm/thick/high, no change in cervix since last exam 2 days ago Disposition - Disposition OB Disposition: Triage Discharge Date: 08/09/22 Discharge Time: 12:50 I agree with the RN Medical Screening Exam: Yes Case reviewed; plan agreed upon as documented in EMR&OBIX.: Yes Diagnosis: FALSE LABOR BEFORE 37 COMPLETED WEEKS OF GEST, THIRD TRI
== END 2022-08-09 12:50 | disposition home or self-care (01) ==
LOC: FBPOP 10:49
PROVIDERS: ATTEND Obstetrics & Gynecology
DX: O47.03 False labor before 37 completed weeks of gestation, third trimester (principal); Z3A.30 30 weeks gestation of pregnancy
CPT/HCPCS: 59025; 82731; 81001; G0463; 99213

== ENCOUNTER 2022-08-24 15:35 | Outpatient (CLI) | payer OTHER ==
[2022-08-24] MEDS ORDERED: BETAMET ACET-BETAMETH SOD PHOS 6 MG/ML MDV IM SCH (17:15)
[2022-08-24 17:49] VITALS: BP 134/77; PULSE 106; RESP 18; TEMP 97.9
--- NOTE | 2022-08-24 22:10 | P.MSEPDOC ---
Presenting Problems - Arrival Data Date of Arrival on Unit: 08/24/22 Time of Arrival on Unit: 15:35 Mode of Transport: Ambulatory - Complaint OB-Reason for Admission/Chief Complaint: Possible Onset of Labor Comment: Pt has had consistent cramping for the last 24hrs, increasing with intensity Medical History - Information : 1 Para: 0 Term: 0 : 0 Abortions: Spontaneous or Elective: 0 Number of Living Children: 0 - Gestational Age Gestational Age by GÓMEZ (wks/days): 32 Weeks and 6 Days Review of Systems - Review of Systems Constitutional: No problems Breast: No problems ENT: No problems Cardiovascular: No problems Respiratory: No problems Gastrointestinal: No problems Genitourinary: No problems Musculoskeletal: No problems Neurological: No problems Skin: No problems Vital Signs - Temperature Temperature: 97.9 F Temperature Source: Oral - Pulse Pulse Oximetery Pulse Rate: 106 Pulse Assessment Method: Pulse Oximetry - Respirations Respiratory Rate: 18 Oxygen Delivery Method: Room Air O2 Sat by Pulse Oximetry: 98 - Blood Pressure Right Arm Blood Pressure: 134/77 Blood Pressure Mean: 96 Blood Pressure Source: Automatic Cuff Medical Screen Scoring - Cervical Exam Dilation (cm): 1 Effacement (%): 0 Membranes: Intact - Uterine Contractions Intensity: Absent Resting: Soft to palpation - Assessment - Baby A Baseline FHR: 135 Heart Rate - NICHD Category: Category I (Normal) NST: Reactive Physician Notification - Physician Notified Physician Notified Date: 08/24/22 Physician Notified Time: 16:00 Physician: Shani Caceres New Order Received: Yes - Notification Comment Comment: Reported to Dr. Caceres on maternal/ status, FHTs category 1 & reactive, no. contractions noted on monitor. Pt given button to press when she is feeling the start of. a cramp/contraction. She is pressing button frequently during audible movement. Pt. recently had a negative FFN on 08/09. RN to obtain another FFN and check pt's cervix. FFN positive, received 1st dose of celestone. Cervix unchanged. Maternal Triage Index - Maternal Triage Index Presenting for scheduled procedure w/no complaint: No - Stat/Priority 1 Stat Priority 1: No - Urgent/Priority 2 Urgent Priority 2: Yes Provider Notified: Shani Caceres Provider Notified Time: 16:00 Criteria Met for Priority 2: <34wks with c/o contractions Disposition - Disposition OB Disposition: Discharge to home Discharge Date: 08/24/22 Discharge Time: 17:40 I agree with the RN Medical Screening Exam: Yes Case reviewed; plan agreed upon as documented in EMR&OBIX.: Yes Comments: Pt did not make any cervical change in the last few days. She has a +FFN now and I discussed that with her and her significant other. She did receive her first dose of celestone and will return for another dose in 24 hours. Diagnosis: LABOR WITHOUT DELIVERY, THIRD TRIMESTER
== END 2022-08-24 17:40 | disposition home or self-care (01) ==
LOC: FBPOP 15:35
PROVIDERS: ATTEND Obstetrics & Gynecology
DX: O60.03 Preterm labor without delivery, third trimester (principal); Z3A.32 32 weeks gestation of pregnancy
CPT/HCPCS: 59025; 96372; 82731; G0463; J0702; 99213

== ENCOUNTER 2022-08-25 17:10 | Outpatient (CLI) | payer OTHER ==
[2022-08-25] MEDS ORDERED: BETAMET ACET-BETAMETH SOD PHOS 6 MG/ML MDV IM ONE (17:30)
[2022-08-25 18:32] VITALS: BP 116/62; PULSE 86; RESP 18; TEMP 97.7
--- NOTE | 2022-08-28 09:44 | P.MSEPDOC ---
Presenting Problems - Arrival Data Date of Arrival on Unit: 08/25/22 Time of Arrival on Unit: 17:10 Mode of Transport: Ambulatory - Complaint OB-Reason for Admission/Chief Complaint: Possible Onset of Labor, Celestone Injection Comment: continued cramping since yesterday, pt states pain 10 Medical History - Information : 1 Para: 0 Term: 0 : 0 Abortions: Spontaneous or Elective: 0 Number of Living Children: 0 - Gestational Age Gestational Age by GÓMEZ (wks/days): 33 Weeks and 0 Days Review of Systems - Review of Systems Constitutional: No problems Breast: No problems ENT: No problems Cardiovascular: No problems Respiratory: No problems Gastrointestinal: No problems Genitourinary: No problems Musculoskeletal: No problems Neurological: No problems Skin: No problems Vital Signs - Temperature Temperature: 97.7 F Temperature Source: Temporal Artery Scan - Pulse Right Pulse Rate: 86 Pulse Assessment Method: Automatic Cuff - Respirations Respiratory Rate: 18 Oxygen Delivery Method: Room Air O2 Sat by Pulse Oximetry: 97 - Blood Pressure Right Arm Blood Pressure: 116/62 Blood Pressure Mean: 80 Blood Pressure Source: Automatic Cuff Medical Screen Scoring - Cervical Exam Dilation (cm): 1 Effacement (%): 0 Station: -3 Membranes: Intact - Uterine Contractions Frequency From (mins): 5 Frequency To (mins): 5 Duration From (seconds): 30 Duration To (seconds): 40 Intensity: Mild Resting: Soft to palpation - Assessment - Baby A Baseline FHR: 120 Heart Rate - NICHD Category: Category I (Normal) NST: Reactive Physician Notification - Physician Notified Physician Notified Date: 08/25/22 Physician Notified Time: 18:00 Physician: Harshal Bryan New Order Received: (d/c with education) Maternal Triage Index - Urgent/Priority 2 Urgent Priority 2: Yes Provider Notified: Harshal Bryan Provider Notified Time: 18:00 Criteria Met for Priority 2: 33 weeks, mild contractions, no cervical change for 2 days, follow up appt scheduled for tomorrow with Augustus Disposition - Disposition OB Disposition: Triage, Discharge to home Discharge Date: 08/25/22 Discharge Time: 18:05 I agree with the RN Medical Screening Exam: Yes Physician's MSE Comment: I was called when the patient initially came to triage for her second Celestone shot. Dr. Bryan was later called for orders due to patient complaining of contractions. He ordered cervical exam and monitoring. Discharge order was given by him after it was determined that she was not in active labor. Case reviewed; plan agreed upon as documented in EMR&OBIX.: Yes Diagnosis: FALSE LABOR BEFORE 37 COMPLETED WEEKS OF GEST, THIRD TRI Additional Diagnoses: +FFN
== END 2022-08-25 18:05 | disposition home or self-care (01) ==
LOC: FBPOP 17:10
PROVIDERS: ATTEND Obstetrics & Gynecology
DX: O47.03 False labor before 37 completed weeks of gestation, third trimester (principal); Z3A.33 33 weeks gestation of pregnancy
CPT/HCPCS: 59025; 96372; G0463; J0702; 99213

== ENCOUNTER → 2022-09-13 | Outpatient (CLI) | payer OTHER ==
[2022-09-14 01:40] VITALS: BP 144/77; PULSE 112; RESP 16; TEMP 98.5
--- NOTE | 2022-09-14 08:53 | P.MSEPDOC ---
Presenting Problems - Arrival Data Date of Arrival on Unit: 09/13/22 Time of Arrival on Unit: 23:33 Mode of Transport: Ambulatory - Complaint OB-Reason for Admission/Chief Complaint: Possible Onset of Labor Medical History - Information : 1 Para: 0 Term: 0 : 0 Abortions: Spontaneous or Elective: 0 Number of Living Children: 0 - Gestational Age Gestational Age by GÓMEZ (wks/days): 35 Weeks and 6 Days Review of Systems - Review of Systems Constitutional: No problems Breast: No problems ENT: No problems Cardiovascular: No problems Respiratory: No problems Gastrointestinal: No problems Genitourinary: No problems Musculoskeletal: No problems Neurological: No problems Skin: No problems Vital Signs - Temperature Temperature: 98.5 F Temperature Source: Oral - Pulse Pulse Oximetery Pulse Rate: 112 Pulse Assessment Method: Pulse Oximetry - Respirations Respiratory Rate: 16 Oxygen Delivery Method: Room Air O2 Sat by Pulse Oximetry: 97 - Blood Pressure Right Arm Blood Pressure: 144/77 Blood Pressure Mean: 99 Blood Pressure Source: Automatic Cuff Medical Screen Scoring - Cervical Exam Dilation (cm): 1.5 Effacement (%): 60 Station: -2 Membranes: Intact - Uterine Contractions Frequency From (mins): 1 Frequency To (mins): 7 Duration From (seconds): 40 Duration To (seconds): 100 Intensity: Mild Resting: Soft to palpation - Assessment - Baby A Baseline FHR: 135 Heart Rate - NICHD Category: Category I (Normal) NST: Reactive Physician Notification - Physician Notified Physician Notified Date: 09/14/22 Physician Notified Time: 00:54 Physician: Dr. Coffman New Order Received: Yes - Notification Comment Comment: Spoke with Dr. Coffman. Report on patient, pain, cervical dilation, contractions and FHR. Orders to reassure patient she is darin and to come back to triage if pain is too intense to handle. Orders to discharge and follow up in office at her Tuesday appointment. Maternal Triage Index - Maternal Triage Index Presenting for scheduled procedure w/no complaint: No - Stat/Priority 1 Stat Priority 1: No - Urgent/Priority 2 Urgent Priority 2: No - Prompt/Priority 3 Prompt Priority 3: Yes Criteria Met for Priority 3: >34 weeks with regular contractions Disposition - Disposition OB Disposition: Discharge to home Discharge Date: 09/14/22 Discharge Time: 00:54 I agree with the RN Medical Screening Exam: Yes Case reviewed; plan agreed upon as documented in EMR&OBIX.: Yes Diagnosis: FALSE LABOR BEFORE 37 COMPLETED WEEKS OF GEST, THIRD TRI
== END ==
LOC: FBPOP 23:37
PROVIDERS: ATTEND Obstetrics & Gynecology
DX: O47.03 False labor before 37 completed weeks of gestation, third trimester (principal); Z3A.35 35 weeks gestation of pregnancy; F17.200 Nicotine dependence, unspecified, uncomplicated
CPT/HCPCS: 59025; G0463; 99213

== ENCOUNTER 2022-09-14 14:18 | Outpatient (CLI) | payer OTHER ==
[2022-09-14 15:51] VITALS: BP 123/66; PULSE 97; RESP 16; TEMP 98
--- NOTE | 2022-09-14 19:58 | P.MSEPDOC ---
Presenting Problems - Arrival Data Date of Arrival on Unit: 09/14/22 Time of Arrival on Unit: 14:18 Mode of Transport: Ambulatory - Complaint OB-Reason for Admission/Chief Complaint: Possible Onset of Labor Medical History - Information : 1 Para: 0 - Gestational Age Gestational Age by GÓMEZ (wks/days): 35 Weeks and 6 Days Review of Systems - Review of Systems Constitutional: No problems Breast: No problems ENT: No problems Cardiovascular: No problems Respiratory: No problems Gastrointestinal: No problems Genitourinary: No problems Musculoskeletal: No problems Neurological: No problems Skin: No problems Vital Signs - Temperature Temperature: 98.0 F Temperature Source: Axillary - Pulse Right Sitting Brachial Pulse Rate: 97 Pulse Assessment Method: Automatic Cuff - Respirations Respiratory Rate: 16 Oxygen Delivery Method: Room Air O2 Sat by Pulse Oximetry: 100 - Blood Pressure Right Arm Sitting Blood Pressure: 123/66 Blood Pressure Mean: 85 Blood Pressure Source: Automatic Cuff Medical Screen Scoring - Cervical Exam Dilation (cm): 1 Effacement (%): 30 Station: -3 Membranes: Intact - Uterine Contractions Frequency From (mins): 1 Frequency To (mins): 10 Duration From (seconds): 20 Duration To (seconds): 50 Intensity: Mild Resting: Soft to palpation - Assessment - Baby A Baseline FHR: 135 Heart Rate - NICHD Category: Category I (Normal) NST: Reactive Physician Notification - Physician Notified Physician Notified Date: 09/14/22 Physician Notified Time: 15:33 Physician: Harshal Bryan New Order Received: Yes - Notification Comment Comment: discharge home Maternal Triage Index - Maternal Triage Index Presenting for scheduled procedure w/no complaint: No - Stat/Priority 1 Stat Priority 1: No - Urgent/Priority 2 Urgent Priority 2: No - Prompt/Priority 3 Prompt Priority 3: Yes Criteria Met for Priority 3: contx/pain Disposition - Disposition OB Disposition: Discharge to home Discharge Date: 09/14/22 Discharge Time: 15:44 I agree with the RN Medical Screening Exam: Yes Case reviewed; plan agreed upon as documented in EMR&OBIX.: Yes Diagnosis: FALSE LABOR BEFORE 37 COMPLETED WEEKS OF GEST, THIRD TRI
== END 2022-09-14 15:44 | disposition home or self-care (01) ==
LOC: FBPOP 14:18
PROVIDERS: ATTEND Obstetrics & Gynecology
DX: O47.03 False labor before 37 completed weeks of gestation, third trimester (principal); Z3A.00 Weeks of gestation of pregnancy not specified; F17.200 Nicotine dependence, unspecified, uncomplicated
CPT/HCPCS: 59025; G0463; 99213

== ENCOUNTER 2022-10-03 12:37 | Outpatient (CLI) | payer OTHER ==
[2022-10-03 13:46] VITALS: BP 117/67; PULSE 109; RESP 17; TEMP 97.1
--- NOTE | 2022-10-03 14:17 | P.MSEPDOC ---
Presenting Problems - Arrival Data Date of Arrival on Unit: 10/03/22 Time of Arrival on Unit: 12:37 Mode of Transport: Ambulatory - Complaint OB-Reason for Admission/Chief Complaint: Other Comment: pt was transferred from ER to be cleard by OB for symptoms of congestion/sore throat/non productive cough, pt also was experiencing cramping that she has had since around 30 weeks, nst was reactive and pt was transferred back to ER for work up of symptoms Medical History - Information : 1 Para: 0 Term: 0 : 0 Abortions: Spontaneous or Elective: 0 Number of Living Children: 0 - Gestational Age Gestational Age by GÓMEZ (wks/days): 38 Weeks and 4 Days - History Complications: Breech Review of Systems - Review of Systems Constitutional: No problems Breast: No problems ENT: No problems Cardiovascular: No problems Respiratory: No problems Gastrointestinal: No problems Genitourinary: No problems Musculoskeletal: No problems Neurological: No problems Skin: No problems Vital Signs - Temperature Temperature: 97.1 F Temperature Source: Temporal Artery Scan - Pulse Right Brachial Pulse Rate: 109 Pulse Assessment Method: Automatic Cuff - Respirations Respiratory Rate: 17 Oxygen Delivery Method: Room Air O2 Sat by Pulse Oximetry: 98 - Blood Pressure Right Arm Blood Pressure: 117/67 Blood Pressure Mean: 83 Blood Pressure Source: Automatic Cuff Medical Screen Scoring - Assessment - Baby A Baseline FHR: 135 Heart Rate - NICHD Category: Category I (Normal) NST: Reactive Physician Notification - Physician Notified Physician Notified Date: 10/03/22 Physician Notified Time: 13:21 Physician: Harshal Bryan New Order Received: Yes (ok to transfer to ER) Maternal Triage Index - Non-Urgent/Priority 4 Non-Urgent Priority 4: Yes Criteria Met for Priority 4: pt cleared for transfer to ER from OB standpoint Disposition - Disposition OB Disposition: Transfer to other dept./facility, Written follow up instructions reviewed Discharge Date: 10/03/22 Discharge Time: 13:46 I agree with the RN Medical Screening Exam: Yes Case reviewed; plan agreed upon as documented in EMR&OBIX.: Yes Diagnosis: ACUTE UPPER RESPIRATORY INFECTION, UNSPECIFIED (Pt presents for OB clearance from the ER with c/o URI symptoms. FHTs catagory 1. No regular ctxs. Good movement. No evidence of obstetical conditons. Cleared to return to ER for evaluation of URI symptoms. )
== END 2022-10-03 13:47 | disposition home or self-care (01) ==
LOC: FBPOP 12:37
PROVIDERS: ATTEND Obstetrics & Gynecology
DX: O26.893 Other specified pregnancy related conditions, third trimester (principal); Z3A.38 38 weeks gestation of pregnancy; J06.9 Acute upper respiratory infection, unspecified; F17.200 Nicotine dependence, unspecified, uncomplicated
CPT/HCPCS: 59025; G0463; 99213

== ENCOUNTER 2022-10-03 13:47 | Emergency (ER) | payer OTHER ==
[2022-10-03 14:01] VITALS: BP 124/77; PULSE 100; RESP 20; TEMP 98
--- NOTE | 2022-10-03 14:17 | ED ---
URI HPI - General Chief Complaint: Upper Respiratory Infection Stated Complaint: Congestion-38 weeks preg Time Seen by Provider: 10/03/22 14:02 Source: patient, RN notes reviewed Mode of arrival: ambulatory Limitations: no limitations - History of Present Illness Initial Comments: 27-year-old female presents emergency Department chief complaint of cough congestion patient been sick last few days. Patient states she is scheduled for few days. Patient states that she is 30 weeks patient - Related Data Home Medications Medication Instructions Recorded Confirmed Escitalopram [Lexapro] 10 mg PO DAILY 05/19/21 10/03/22 Loratadine [Claritin] 10 mg PO DAILY 08/07/22 10/03/22 Vit No.179/Iron/Folic 1 each PO DAILY 08/07/22 10/03/22 [ Tablet] Previous Rx's Medication Instructions Recorded Amoxic-Pot Clav 875-125Mg 1 tab PO Q12HR #20 tab 10/03/22 [Augmentin 875-125] Allergies Allergy/AdvReac Type Severity Reaction Status Date / Time No Known Allergies Allergy Verified 10/03/22 12:45 Review of Systems ROS Statement: Those systems with pertinent positive or pertinent negative responses have been documented in the HPI. ROS Other: All systems not noted in ROS Statement are negative. Past Medical History Past Medical History: GERD/Reflux Additional Past Medical History / Comment(s): hiatal hernia History of Any Multi-Drug Resistant Organisms: None Reported Past Surgical History: No Surgical Hx Reported Past Psychological History: Anxiety, Depression Smoking Status: Never smoker General Exam Limitations: no limitations General appearance: alert, in no apparent distress Head exam: Present: atraumatic, normocephalic, normal inspection Eye exam: Present: normal appearance, PERRL, EOMI. Absent: scleral icterus, conjunctival injection, periorbital swelling ENT exam: Present: normal exam, normal oropharynx, mucous membranes moist Neck exam: Present: normal inspection, full ROM. Absent: tenderness, meningismus, lymphadenopathy Respiratory exam: Present: normal lung sounds bilaterally. Absent: respiratory distress, wheezes, rales, rhonchi, stridor Cardiovascular Exam: Present: regular rate, normal rhythm, normal heart sounds. Absent: systolic murmur, diastolic murmur, rubs, gallop, clicks GI/Abdominal exam: Present: soft, normal bowel sounds. Absent: distended, tenderness, guarding, rebound, rigid Course Vital Signs 10/03/22 13:59 Temperature 98 F Pulse Rate 100 Respiratory 20 Rate Blood Pressure 124/77 O2 Sat by Pulse 98 Oximetry Medical Decision Making - Medical Decision Making 32-year-old female presents emergency Department chief complaint of cough and cold like symptoms. Patient has negative RSV, negative flu" 19. Patient be given antibiotics concerns of possible early bacterial infection given that she is to 2 days. Patient - Lab Data Lab Results 10/03/22 Range/Units 14:09 Influenza Type A (PCR) Not Detected (Not Detectd) Influenza Type B (PCR) Not Detected (Not Detectd) RSV (PCR) Not Detected (Not Detectd) SARS-CoV-2 (PCR) Not Detected (Not Detectd) Disposition Clinical Impression: Upper respiratory tract infection Disposition: HOME SELF-CARE Condition: Stable Instructions (If sedation given, give patient instructions): Upper Respiratory Infection (ED) Additional Instructions: Please return to the Emergency Department if symptoms worsen or any other concerns. Prescriptions: Amoxic-Pot Clav 875-125Mg [Augmentin 875-125] 1 tab PO Q12HR #20 tab Is patient prescribed a controlled substance at d/c from ED?: No Referrals: Alyssa Rahman MD [Primary Care Provider] - 1-2 days Time of Disposition: 15:05
== END 2022-10-03 15:28 | disposition home or self-care (01) ==
LOC: EC 13:47
DX: O99.513 Diseases of the respiratory system complicating pregnancy, third trimester (principal); O99.613 Diseases of the digestive system complicating pregnancy, third trimester; O99.343 Other mental disorders complicating pregnancy, third trimester; J06.9 Acute upper respiratory infection, unspecified; K21.9 Gastro-esophageal reflux disease without esophagitis; F41.9 Anxiety disorder, unspecified; F32.A Depression, unspecified; Z79.899 Other long term (current) drug therapy; Z3A.38 38 weeks gestation of pregnancy; Z20.822 Contact with and (suspected) exposure to COVID-19
CPT/HCPCS: 87636; 99283

== ENCOUNTER 2022-10-05 05:35 | Inpatient (IN) | payer OTHER ==
[2022-10-05] MEDS ORDERED: TERBUTALINE 1 MG/ML VIAL SQ PRN (06:43)
[2022-10-05] MEDS ORDERED: LIDOCAINE 0.5% (PF) 5 MG/ML (50 ML SDV) SQ PRN (06:43)
[2022-10-05] MEDS ORDERED: CITRIC ACID-SODIUM CITRATE 15 ML CUP PO ONE (06:45)
[2022-10-05] MEDS: LACTATED RINGERS 1,000 ML IV SCH ×2 (07:00→19:29)
[2022-10-05 07:03] LABS: Basophils % (A) 0 %; Eosinophils # (A) 0.1 k/uL (0-0.7); Eosinophils % (A) 1 %; HCT 41.5 % (34.0-46.0); HGB 14.6 gm/dL (11.4-16.0); Lymphocytes # (A) 1.4 k/uL (1.0-4.8); Lymphocytes % (A) 13 %; MCH 31.7 pg (25.0-35.0); MCHC 35.1 g/dL (31.0-37.0); MCV 90.3 fL (80.0-100.0); Mean Platelet Volume 11.5; Monocytes # (A) 0.5 k/uL (0-1.0); Monocytes % (A) 5 %; Neutrophils # (A) 8.7 k/uL (1.3-7.7); Neutrophils % (A) 79 %; Platelet Count 151 k/uL (150-450)
[2022-10-05] MEDS ORDERED: KETOROLAC 15 MG/ML 1 ML VIAL ONE (07:19)
[2022-10-05] MEDS ORDERED: MORPHINE SULFATE (PF) 0.3 MG/0.3 ML SYR ONE (07:19)
[2022-10-05] MEDS ORDERED: NALBUPHINE 10 MG/ML (1 ML AMP) ONE (07:19)
[2022-10-05] MEDS ORDERED: OXYTOCIN 30 UNITS/500 ML NS BAG IV ONE (07:19)
[2022-10-05] MEDS ORDERED: ONDANSETRON 4 MG/2 ML VIAL ONE (07:19)
--- NOTE | 2022-10-05 08:10 | P.HPOB ---
History of Present Illness H&P Date: 10/05/22 Chief Complaint: Bleeding, contractions This is a 27-year-old female 1 para 0 at 38-6/7 weeks who presented with bleeding when she awoke this morning. In addition she has been feeling contractions that have become stronger. She was noted to have made cervical change in triage upon arrival and no active bleeding was noted. Baby is in a breech presentation and she has a scheduled . In light of her regular contractions along with cervical change, the decision is made to proceed with primary low transverse section today. 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 She has been feeling contractions frequently throughout her . She has seen maternal medicine for evaluation also. labs: Group B streptococcus-negative One hour Glucola-94 Random glucose-78 Hemoglobin-13.3 Hepatitis B surface antigen-negative nonreactive Hepatitis C antigen-negative nonreactive HIV-nonreactive Rubella-immune Cystic fibrosis screening-negative GC/chlamydia-negative Blood type-B+ Antibody screen-negative RPR-nonreactive Obstetrical history: . Gynecologic history: No history of sexual transmitted diseases. Social history: She is single. 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 [employer] Review of Systems Constitutional: Denies chills, Denies fever Eyes: denies blurred vision, denies pain Ears, nose, mouth and throat: Denies headache, Denies sore throat Cardiovascular: Denies chest pain, Denies shortness of breath Respiratory: Reports cough Gastrointestinal: Reports abdominal pain (Contractions), Reports heartburn Genitourinary: Reports abnormal vaginal bleeding, Reports pelvic pain, Reports Musculoskeletal: Reports low back pain Integumentary: Denies pruritus, Denies rash Neurological: Denies numbness, Denies weakness Psychiatric: Reports anxiety, Reports depression Past Medical History Past Medical History: GERD/Reflux Additional Past Medical History / Comment(s): hiatal hernia History of Any Multi-Drug Resistant Organisms: None Reported Past Surgical History: No Surgical Hx Reported Past Psychological History: Anxiety, Depression Smoking Status: Never smoker Past Alcohol Use History: None Reported Past Drug Use History: None Reported - Past Family History Mother History Unknown: Yes Additional Family Medical History / Comment(s): Heart disease Medications and Allergies Home Medications Medication Instructions Recorded Confirmed Type Escitalopram [Lexapro] 10 mg PO DAILY 05/19/21 10/05/22 History Loratadine [Claritin] 10 mg PO DAILY 08/07/22 10/05/22 History Vit No.179/Iron/Folic 1 each PO DAILY 08/07/22 10/05/22 History [ Tablet] Amoxic-Pot Clav 875-125Mg 1 tab PO Q12HR #20 tab 10/03/22 10/05/22 Rx [Augmentin 875-125] Allergies Allergy/AdvReac Type Severity Reaction Status Date / Time No Known Allergies Allergy Verified 10/05/22 05:52 Exam Osteopathic Statement: *. No significant issues noted on an osteopathic structural exam other than those noted in the History and Physical/Consult. Intake and Output 10/04/22 10/05/22 10/05/22 22:59 06:59 14:59 Other: Weight 91.172 kg HEENT: Within normal limits Heart regular rate and rhythm Lungs: Clear to auscultation bilaterally Abdomen: Cervix: 2-3 cm/60%/floating with slight bloody show noted on the glove. heart tones: Category 1 Contractions: Every 2 minutes Extremities: Negative Homans Results Result Diagrams: 10/05/22 06:51 Abnormal Lab Results - Last 24 Hours (Table) 10/05/22 Range/Units 06:51 WBC 11.0 H (3.8-10.6) k/uL Neutrophils # 8.7 H (1.3-7.7) k/uL Assessment and Plan (1) 38 weeks gestation of Current Visit: Yes Status: Acute Code(s): Z3A.38 - 38 WEEKS GESTATION OF SNOMED Code(s): 12086076 (2) Uterus didelphys in Current Visit: Yes Status: Acute Code(s): O34.599 - MATERNAL CARE FOR OTH ABNLT OF GRAVID UTERUS, UNSP TRIMESTER; Q51.28 - OTHER AND UNSPECIFIED DOUBLING OF UTERUS SNOMED Code(s): 04184214 (3) Breech presentation at Current Visit: Yes Status: Acute Code(s): O32.1XX0 - MATERNAL CARE FOR BREECH PRESENTATION, UNSP SNOMED Code(s): 919495509 Plan: Admission for primary section. I have discussed the risks, benefits, and alternative therapies for the above- mentioned procedure and for both sedation/anesthesia as well as necessary blood products administration, if indicated, as they pertain to this patient. The patient has indicated her understanding and acceptance of the risks and procedur es discussed.
[2022-10-05] MEDS ORDERED: MORPHINE SULFATE 2 MG/ML SYRINGE IVP PRN (08:13)
[2022-10-05] MEDS ORDERED: ONDANSETRON 4 MG/2 ML VIAL IVP PRN (08:13)
[2022-10-05] MEDS ORDERED: diphenhydrAMINE 50 MG/ML 1 ML VIAL IVP PRN ×2 (08:13→08:48)
[2022-10-05] MEDS ORDERED: NALOXONE 0.4 MG/ML 1 ML VIAL IV PRN (08:13)
--- NOTE | 2022-10-05 08:21 | P.OP ---
Date of Procedure: 10/05/22 Preoperative Diagnosis: 1. Intrauterine at 38-6/7 weeks. 2. Active labor. 3. Breech presentation. 4. Uterine didelphys. Postoperative Diagnosis: Same Procedure(s) Performed: Primary low transverse section Anesthesia: spinal (Duramorph) Surgeon: Ximena Coffman Group Counselor #1: Harshal Bryan Estimated Blood Loss (ml): 300 Pathology: other (Placenta) Condition: stable Disposition: floor Indications for Procedure: This is a 27-year-old female 1 para 0 at 38-6/7 weeks who presented in active labor and breech presentation. She did have some bloody show and regular contractions. I have discussed the risks, benefits, and alternative therapies for the above- mentioned procedure and for both sedation/anesthesia as well as necessary blood products administration, if indicated, as they pertain to this patient. The patient has indicated her understanding and acceptance of the risks and procedures discussed. Operative Findings: A viable female is noted in the footling breech presentation with scores of 7 at 1 minute and 9 at 5 minutes and weight of 6 lbs. 15 oz. Nuchal cord 2 was also noted. Meconium fluid was also noted. Uterus is noted to be a uterine didelphys with baby in the left horn. Both ovaries appeared normal. Description of Procedure: The patient is taken to the operating room where she is placed in the dorsal supine position with leftward tilt after spinal Duramorph anesthesia is given. She is prepped and draped in the normal sterile fashion. Skin was tested and found to be adequately anesthetized. A Pfannenstiel skin incision was made with a scalpel. A second knife was used to carry the incision down to the underlying layer of fascia. The fascia was nicked in the midline with a scalpel and then extended laterally bilaterally with Ortiz scissors. The anterior lip of the fascia was grasped with 2 Tremayne clamps and then dissected off the underlying rectus muscle in the midline with Ortiz scissors. The inferior aspect of the fascial incision was grasped with 2 Tremayne clamps and dissected off the underlying rectus muscle and the midline with Ortiz scissors. Next the peritoneum layer was tented up with 2 hemostats and then entered sharply with the scalpel. The incision is extended superiorly and inferiorly with Metzenbaum scissors. Next a DeLee retractor is placed. The vesicouterine peritoneum is entered sharply with Metzenbaum scissors and extended laterally bilaterally with Metzenbaum scissors and then the bladder flap is pushed inferiorly. The lower uterine segment is incised in transverse fashion with the scalpel and then bluntly entered with a hemostat. Meconium fluid is noted. The incision was then extended laterally bilaterally with 2 fingers. Next the infant's feet are grasped and delivered through the incision followed by the buttocks and the trunk, followed by each arm in a flexed position, followed by the head in a flexed position. Nuchal cord 2 was reduced around the 's neck. Nose and mouth are bulb suctioned. Cord is clamped and cut. Infant is taken to warmer by nursing staff. Uterine fundus is gently massaged and placenta is delivered manually. Uterus is exteriorized and cleared of all clots and debris. Uterine incision is closed with 0 Vicryl suture in a running locked fashion. A second layer of 0 Vicryl suture is used in a running fashion for hemostasis. Once adequate hemostasis as assured, the vesicouterine peritoneum is reapproximated with 2-0 Vicryl suture in a running fashion. Posterior cul-de-sac is suctioned of all clots and debris. Uterus is returned to the abdomen. Incision is noted to be hemostatic. Peritoneal layer is closed with 0 Vicryl suture in a running fashion. Muscle layer is reapproximated with 0 Vicryl suture in interrupted fashion. Fascia layer is then closed with 0 PDS suture with 2 sutures meeting in the midline and the knots buried in either side and in the midline. The subcutaneous tissue was then closed with 2-0 Vicryl suture. Skin layer was then closed with cammie. All sponge and needle counts are correct. The patient is taken to recovery room in stable condition.
[2022-10-05] MEDS ORDERED: LANOLIN CREAM 5 GM TUBE TOPICAL PRN (08:48)
[2022-10-05] MEDS ORDERED: diphenhydrAMINE 25 MG CAP PO PRN (08:48)
[2022-10-05] MEDS ORDERED: diphenhydrAMINE 50 MG CAP PO PRN (08:48)
[2022-10-05] MEDS ORDERED: METOCLOPRAMIDE 5 MG/ML 2 ML VIAL IVP PRN (08:48)
[2022-10-05] MEDS ORDERED: OXYTOCIN 30 UNITS/500 ML NS 30 UNIT in SALINE 1 500ML.BAG IV SCH (08:48)
[2022-10-05] MEDS ORDERED: ZOLPIDEM 5 MG TAB PO PRN (08:48)
[2022-10-05] MEDS ORDERED: HYDROmorphone 1 MG/ML 1 ML SYRINGE IVP PRN (08:48)
[2022-10-05] MEDS: ESCITALOPRAM 10 MG TAB PO SCH (09:16)
[2022-10-05] MEDS: PRENATAL VIT-IRON-FOLIC ACID 1 EACH TABLET PO SCH (09:25)
[2022-10-05] MEDS: AMOXIC-POT CLAV 875-125MG 1 EACH TAB PO SCH ×2 (14:00→20:20)
[2022-10-05] MEDS: ACETAMINOPHEN IV (For NPO) 1,000 MG in EMPTY BAG 1 BAG IVPB SCH ×2 (14:04→23:21)
[2022-10-05] MEDS: ACETAMINOPHEN TAB 500 MG TAB PO SCH ×3 (14:06→23:22)
[2022-10-05] MEDS: IBUPROFEN 600 MG TAB PO SCH ×2 (19:30→21:58)
[2022-10-05] MEDS: KETOROLAC 15 MG/ML 1 ML VIAL IVP SCH ×2 (20:19→21:58)
[2022-10-05] MEDS: SENNOSIDES-DOCUSATE SODIUM 1 EACH TAB PO SCH (20:21)
[2022-10-05] MEDS: LORATADINE 10 MG TAB PO SCH (21:58)
[2022-10-06] MEDS: LACTATED RINGERS 1,000 ML IV SCH ×2 (00:32→09:06)
[2022-10-06] MEDS: IBUPROFEN 600 MG TAB PO SCH ×5 (03:09→23:47)
[2022-10-06] MEDS: KETOROLAC 15 MG/ML 1 ML VIAL IVP SCH (04:00)
[2022-10-06] MEDS: LORATADINE 10 MG TAB PO SCH (04:12)
[2022-10-06] MEDS: ACETAMINOPHEN TAB 500 MG TAB PO SCH ×3 (07:40→20:36)
[2022-10-06] MEDS: AMOXIC-POT CLAV 875-125MG 1 EACH TAB PO SCH ×2 (07:40→20:36)
[2022-10-06] MEDS: PRENATAL VIT-IRON-FOLIC ACID 1 EACH TABLET PO SCH (07:40)
[2022-10-06] MEDS: ESCITALOPRAM 10 MG TAB PO SCH (07:40)
--- NOTE | 2022-10-06 07:53 | P.PN ---
Progress Note - Text Progress Note Date: 10/06/22 Postop day 1 from under spinal anesthesia with intrathecal morphine given for postop pain management. Patient is doing well. Pain is well controlled. On visual analog scale 3/10 Mild itching present No nausea or vomiting reported. No Headache or weakness and numbness in the legs. No complications from spinal anesthesia.
[2022-10-06 08:31] LABS: Basophils % (A) 1 %; Eosinophils # (A) 0.1 k/uL (0-0.7); Eosinophils % (A) 1 %; HCT 35.8 % (34.0-46.0); HGB 11.7 gm/dL (11.4-16.0); Lymphocytes # (A) 0.6 k/uL (1.0-4.8); Lymphocytes % (A) 10 %; MCH 30.3 pg (25.0-35.0); MCHC 32.8 g/dL (31.0-37.0); MCV 92.6 fL (80.0-100.0); Mean Platelet Volume 10.6; Monocytes # (A) 0.3 k/uL (0-1.0); Monocytes % (A) 5 %; Neutrophils % (A) 81 %; Platelet Count 108 k/uL (150-450); RBC 3.87 m/uL (3.80-5.40); WBC 6.1 k/uL (3.8-10.6)
[2022-10-06] MEDS: SENNOSIDES-DOCUSATE SODIUM 1 EACH TAB PO SCH ×2 (09:07→20:36)
[2022-10-06] MEDS: ALBUTEROL NEBULIZED 2.5 MG/3 ML INHALATION PRN ×3 (12:14→21:02)
--- NOTE | 2022-10-06 12:49 | P.PNOBGPC ---
Subjective - Subjective Principal diagnosis: Status post primary postoperative day #1 Interval history: Patient is still sore on her abdomen especially when she is coughing. She is working on breast-feeding. Lochia is minimal. She is passing flatus but no bowel movement yet. She was started on antibiotics on Tuesday for an upper respiratory infection. Her Covid testing was negative. Patient reports: Reports appetite normal, Reports voiding normally, Reports pain poorly controlled, Reports ambulating normally [place]: doing well Objective - Vital Signs Latest vital signs: Vital Signs Temp Pulse Pulse Resp BP Pulse Ox 10/06/22 12:24 92 10/06/22 12:15 96 10/06/22 08:00 98.3 F 79 18 99/62 97 10/06/22 04:00 98.6 F 79 16 110/72 97 10/06/22 00:00 98.8 F 87 16 114/72 99 10/05/22 20:00 98.3 F 83 16 118/76 98 10/05/22 19:00 16 10/05/22 17:00 16 10/05/22 16:00 98.1 F 83 16 128/65 97 10/05/22 15:00 16 97 10/05/22 13:21 16 Intake and Output 10/05/22 10/06/22 10/06/22 22:59 06:59 14:59 Output Total 300 150 Balance -300 -150 Output: Urine 300 150 Other: # Voids 1 - Exam Lungs: bilateral: wheezes Chest: Normal S1, Normal S2 Extremities: Present: normal. Absent: tenderness, edema Abdomen: Present: normal appearance, soft (Positive bowel sounds 4), tenderness (Mild). Absent: distention Incision: Present: normal, dry, intact. Absent: erythematous Uterus: Present: normal, firm. Absent: tenderness - Labs Labs: Abnormal Lab Results - Last 24 Hours (Table) 10/06/22 Range/Units 08:00 Plt Count 108 L (150-450) k/uL Lymphocytes # 0.6 L (1.0-4.8) k/uL Assessment and Plan (1) 38 weeks gestation of Current Visit: Yes Status: Acute Code(s): Z3A.38 - 38 WEEKS GESTATION OF SNOMED Code(s): 92471768 (2) Uterus didelphys in Current Visit: Yes Status: Acute Code(s): O34.599 - MATERNAL CARE FOR OTH ABNLT OF GRAVID UTERUS, UNSP TRIMESTER; Q51.28 - OTHER AND UNSPECIFIED DOUBLING OF UTERUS SNOMED Code(s): 15528953 (3) Breech presentation at Current Visit: Yes Status: Acute Code(s): O32.1XX0 - MATERNAL CARE FOR BREECH PRESENTATION, UNSP SNOMED Code(s): 836659381 Plan: Will order breathing treatments for upper respiratory infection. We'll continue antibiotics for upper respiratory infection. We'll continue with post and postoperative care. Advance diet as tolerated.
[2022-10-07] MEDS ORDERED: BENZOCAINE/MENTHOL LOZENG 1 EACH LOZENGE MUCOUS MEM PRN (00:55)
[2022-10-07] MEDS: ALBUTEROL NEBULIZED 2.5 MG/3 ML INHALATION PRN ×4 (01:11→11:57)
[2022-10-07] MEDS: ACETAMINOPHEN TAB 500 MG TAB PO SCH ×4 (02:08→16:59)
[2022-10-07 06:19] LABS: Basophils % (A) 0 %; Eosinophils # (A) 0.1 k/uL (0-0.7); Eosinophils % (A) 2 %; HCT 33.5 % (34.0-46.0); HGB 11.4 gm/dL (11.4-16.0); Lymphocytes % (A) 19 %; MCH 31.9 pg (25.0-35.0); MCHC 34.1 g/dL (31.0-37.0); MCV 93.6 fL (80.0-100.0); Mean Platelet Volume 10.8; Monocytes # (A) 0.3 k/uL (0-1.0); Monocytes % (A) 6 %; Neutrophils # (A) 3.6 k/uL (1.3-7.7); Neutrophils % (A) 71 %; Platelet Count 141 k/uL (150-450); RBC 3.58 m/uL (3.80-5.40); RDW 12.8 % (11.5-15.5); WBC 5.1 k/uL (3.8-10.6)
[2022-10-07] MEDS: PRENATAL VIT-IRON-FOLIC ACID 1 EACH TABLET PO SCH (08:19)
[2022-10-07] MEDS: SENNOSIDES-DOCUSATE SODIUM 1 EACH TAB PO SCH ×2 (08:19→20:12)
[2022-10-07] MEDS: AMOXIC-POT CLAV 875-125MG 1 EACH TAB PO SCH ×2 (08:19→20:11)
[2022-10-07] MEDS: LORATADINE 10 MG TAB PO SCH (08:20)
[2022-10-07] MEDS: ESCITALOPRAM 10 MG TAB PO SCH (08:20)
[2022-10-07] MEDS: IBUPROFEN 600 MG TAB PO SCH ×3 (08:20→20:08)
--- NOTE | 2022-10-07 09:22 | P.PNOBGPC ---
Subjective - Subjective Principal diagnosis: Status post section postoperative day #2 Interval history: Patient is still having more pain due to her coughing. She does feel that the breathing treatments are helping. She is passing flatus but no bowel movement yet. Lochia has been minimal. She is working on breast-feeding. Patient reports: Reports appetite normal, Reports voiding normally, Reports pain well controlled, Reports ambulating normally [place]: doing well, nursing well Objective - Vital Signs Latest vital signs: Vital Signs Temp Pulse Pulse Resp BP Pulse Ox 10/07/22 08:31 17 10/07/22 08:28 98.1 F 91 18 118/73 98 10/07/22 08:27 78 10/07/22 08:16 76 10/07/22 05:56 88 10/07/22 05:42 84 10/07/22 01:23 92 10/07/22 01:11 96 10/06/22 23:55 97.7 F 76 16 109/71 98 10/06/22 21:15 86 10/06/22 21:05 86 10/06/22 16:17 90 10/06/22 16:07 88 10/06/22 16:00 98.4 F 105 H 18 128/68 98 10/06/22 12:24 92 10/06/22 12:15 96 Intake and Output 10/06/22 10/07/22 10/07/22 22:59 06:59 14:59 Other: # Voids 2 2 - Exam Lungs: left: wheezes Extremities: Present: normal. Absent: tenderness Abdomen: Present: normal appearance, soft (Positive bowel sounds 4). Absent: distention, tenderness Incision: Present: normal, dry, intact. Absent: erythematous Uterus: Present: normal, firm. 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 We'll continue with breathing treatments and antibiotics for upper respiratory infection.
[2022-10-07] MEDS: KETOROLAC 15 MG/ML 1 ML VIAL IVP SCH ×2 (11:01→20:27)
[2022-10-07 17:23] VITALS: RESP 16
[2022-10-08] MEDS: ACETAMINOPHEN TAB 500 MG TAB PO SCH ×3 (00:30→08:21)
[2022-10-08] MEDS: IBUPROFEN 600 MG TAB PO SCH ×2 (04:36→12:29)
[2022-10-08] MEDS: SENNOSIDES-DOCUSATE SODIUM 1 EACH TAB PO SCH (08:21)
[2022-10-08 08:39] VITALS: BP 128/84; TEMP 97.6
--- NOTE | 2022-10-08 08:39 | P.DS ---
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 She underwent a primary low transverse section due to breech presentation on 10/05/2022 and delivered a viable female infant with scores of 7 at 1 minute and 9 at 5 minutes and infant weight of 6 lbs. 15 oz. Her postoperative and course were complicated by coughing due to upper respiratory infection which caused more incisional pain for her. She was given breathing treatments and continued on her antibiotics. Her white count has been normal. She is passing flatus and bowel movement. Her pain is fairly well controlled with ibuprofen and oxycodone. She has switched to bottle feeding. Vital signs are stable. Lungs are clear to auscultation bilaterally today. Abdomen soft with fundus firm and nontender. Incision is clean dry and intact with cammie in place. She does have some tenderness on her stretch gonzales above the incision on the left side. Extremities show negative Homans. Impression is status post primary low transverse section postoperative day #3. And is to discharge home today. Routine postoperative and instructions are given. She will be given a prescription for ibuprofen and oxycodone. She has been counseled regarding opioid use and has signed a consent form. She will also be given a inhaler and will continue her antibiotics for her upper respiratory infection. She is advised to follow up in the office in approximately one week for a postoperative check and in 6 weeks for a check. She is advised to call the office if she has any further questions or concerns prior to her appointment time. Procedures: Primary low transverse section on 10/05/2022 Patient Condition at Discharge: Stable Plan - Discharge Summary New Discharge Prescriptions: New Ibuprofen [Motrin] 600 mg PO Q6H #60 tab oxyCODONE HCL [OxyIR] 5 mg PO Q4HR PRN #18 tab PRN Reason: Pain Scale 4 - 6 Albuterol Inhaler [Ventolin Hfa Inhaler] 1 - 2 puff INHALATION Q6H PRN #1 dispenser PRN Reason: Wheezing Continue Loratadine [Claritin] 10 mg PO DAILY Vit No.179/Iron/Folic [ Tablet] 1 each PO DAILY Escitalopram [Lexapro] 10 mg PO DAILY Amoxic-Pot Clav 875-125Mg [Augmentin 875-125] 1 tab PO Q12HR #20 tab Discharge Medication List Escitalopram [Lexapro] 10 mg PO DAILY 05/19/21 [History] Loratadine [Claritin] 10 mg PO DAILY 08/07/22 [History] Vit No.179/Iron/Folic [ Tablet] 1 each PO DAILY 08/07/22 [History] Amoxic-Pot Clav 875-125Mg [Augmentin 875-125] 1 tab PO Q12HR #20 tab 10/03/22 [Rx] Albuterol Inhaler [Ventolin Hfa Inhaler] 1 - 2 puff INHALATION Q6H PRN #1 dispenser 10/08/22 [Rx] Ibuprofen [Motrin] 600 mg PO Q6H #60 tab 10/08/22 [Rx] oxyCODONE HCL [OxyIR] 5 mg PO Q4HR PRN #18 tab 10/08/22 [Rx] Follow up Appointment(s)/Referral(s): Ximena Coffman DO [Doctor of Osteopathic Medicine] - 11/24/22 11:30 am (Post Op Appointment 10-14-2022 at 09:15) Activity/Diet/Wound Care/Special Instructions: Instructions 1. Do not begin any exercise program for 3 weeks. 2. Do not resume sexual relations for 3 weeks or longer if uncomfortable. 3. You may take tub baths or showers at any time. 4. You may use tampons if desired after 3 weeks. 5. Keep the area of episiotomy (stitches) clean and dry. 6. If you are not nursing, wear a good fitting, supportive bra during the day and limit fluid intake for at least 1 week to prevent breast engorgement. 7. Call the office, [phone], within the next week to make appointment for your 6 week checkup if it has not already been made. 8. Report any of the following occurrences to the doctor promptly: a. Heavy, excessive bleeding b. Chills, fever c. Burning or frequency of urination d. Pain or redness and breasts if nursing e. Increasing pain or swelling in episiotomy (stitches). In addition to the above instructions, the following additional should be followed: 1. No heavy lifting or straining (exercising) until after 6 week checkup. 2. Keep abdominal incision clean and dry: You may wear a dressing if more comfortable. 3. Make office appointment for 10 days after going home or as instructed by her doctor. Discharge Disposition: HOME SELF-CARE
[2022-10-08] MEDS: ESCITALOPRAM 10 MG TAB PO SCH (10:23)
[2022-10-08] MEDS: AMOXIC-POT CLAV 875-125MG 1 EACH TAB PO SCH (10:23)
[2022-10-08] MEDS: PRENATAL VIT-IRON-FOLIC ACID 1 EACH TABLET PO SCH (10:25)
[2022-10-08] MEDS: LORATADINE 10 MG TAB PO SCH (10:26)
[2022-10-08] MEDS: ALBUTEROL NEBULIZED 2.5 MG/3 ML INHALATION PRN (13:46)
[2022-10-08 14:04] VITALS: PULSE 84
== END 2022-10-08 15:00 | disposition home or self-care (01) | DRG 788 ==
LOC: FBPOP 05:35 → 4FBP 06:20
PROVIDERS: ADMIT Obstetrics & Gynecology; ATTEND Obstetrics & Gynecology
PROC: 4A0HXCZ Measurement of Products of Conception, Cardiac Rate, External Approach (ICD-10-PCS; 2022-10-05)
PROC: 10D00Z1 Extraction of Products of Conception, Low, Open Approach (ICD-10-PCS; principal; 2022-10-05 07:15)
DX: O32.8XX0 Maternal care for other malpresentation of fetus, not applicable or unspecified (principal); F32.A Depression, unspecified; F41.9 Anxiety disorder, unspecified; O69.81X0 Labor and delivery complicated by cord around neck, without compression, not applicable or unspecified; O34.03 Maternal care for unspecified congenital malformation of uterus, third trimester; O77.0 Labor and delivery complicated by meconium in amniotic fluid; J06.9 Acute upper respiratory infection, unspecified; O99.344 Other mental disorders complicating childbirth; O99.52 Diseases of the respiratory system complicating childbirth; Q51.28 Other and unspecified doubling of uterus; Q51.3 Bicornate uterus; Z20.822 Contact with and (suspected) exposure to COVID-19; Z37.0 Single live birth; Z3A.38 38 weeks gestation of pregnancy; Z79.899 Other long term (current) drug therapy
CPT/HCPCS: 59025; 85025; 86850; 86900; 86901; 94640; 99213

== ENCOUNTER 2025-01-19 23:59 | Emergency (ER) | payer OTHER ==
[2025-01-20 00:08] VITALS: RESP 18
[2025-01-20 00:31] LABS: Basophils % (A) 0 %; Eosinophils # (A) 0.3 k/uL (0-0.7); Eosinophils % (A) 3 %; HCT 41.1 % (34.0-46.0); Lymphocytes # (A) 2.4 k/uL (1.0-4.8); Lymphocytes % (A) 24 %; MCH 30.4 pg (25.0-35.0); MCHC 34.1 g/dL (31.0-37.0); MCV 89.1 fL (80.0-100.0); Mean Platelet Volume 9.3; Monocytes # (A) 0.4 k/uL (0-1.0); Monocytes % (A) 4 %; Neutrophils # (A) 6.7 k/uL (1.3-7.7); Neutrophils % (A) 67 %; Platelet Count 200 k/uL (150-450); RBC 4.61 m/uL (3.80-5.40); RDW 12.6 % (11.5-15.5)
--- NOTE | 2025-01-20 00:44 | ED ---
Female Urogenital HPI - General Chief complaint: Vaginal Bleeding Stated complaint: Vaginal Bleeding (8 Weeks) Time Seen by Provider: 01/20/25 00:44 Source: patient, RN notes reviewed Mode of arrival: ambulatory Limitations: no limitations - History of Present Illness Initial comments: 29-year-old female at approximately 8 weeks gestation presenting for vaginal bleeding x 20 minutes. States she was sitting at home when she began to feel a gush of blood from the vagina and passed a bright red blood clot. Admits some light abdominal cramping over the past few weeks otherwise no acute abdominal pain. Denies nausea or vomiting. States she has first OB appointment scheduled for Tuesday with [facility]. - Related Data Home Medications Medication Instructions Recorded Confirmed Escitalopram [Lexapro] 10 mg PO DAILY 05/19/21 10/05/22 Loratadine [Claritin] 10 mg PO DAILY 08/07/22 10/05/22 Vit No.179/Iron/Folic 1 each PO DAILY 08/07/22 10/05/22 [ Tablet] Previous Rx's Medication Instructions Recorded Amoxic-Pot Clav 875-125Mg 1 tab PO Q12HR #20 tab 10/03/22 [Augmentin 875-125] Albuterol Inhaler [Ventolin Hfa 1 - 2 puff INHALATION Q6H PRN #1 10/08/22 Inhaler] dispenser Ibuprofen [Motrin] 600 mg PO Q6H #60 tab 10/08/22 oxyCODONE HCL [OxyIR] 5 mg PO Q4HR PRN #18 tab 10/08/22 Allergies Allergy/AdvReac Type Severity Reaction Status Date / Time No Known Allergies Allergy Verified 01/20/25 00:08 Review of Systems ROS Statement: Those systems with pertinent positive or pertinent negative responses have been documented in the HPI. ROS Other: All systems not noted in ROS Statement are negative. Past Medical History Past Medical History: GERD/Reflux Additional Past Medical History / Comment(s): hiatal hernia, uterine didelphys History of Any Multi-Drug Resistant Organisms: None Reported Past Surgical History: No Surgical Hx Reported, Section Past Anesthesia/Blood Transfusion Reactions: No Reported Reaction Past Psychological History: Anxiety, Depression Smoking Status: Never smoker Past Alcohol Use History: None Reported Past Drug Use History: None Reported - Past Family History Mother History Unknown: Yes Additional Family Medical History / Comment(s): Heart disease General Exam Limitations: no limitations General appearance: alert, in no apparent distress Head exam: Present: atraumatic, normocephalic, normal inspection Eye exam: Present: normal appearance, PERRL, EOMI. Absent: scleral icterus, conjunctival injection, periorbital swelling GI/Abdominal exam: Present: soft, normal bowel sounds. Absent: distended, tenderness, guarding, rebound, rigid Back exam: Absent: CVA tenderness (R), CVA tenderness (L) Neurological exam: Present: alert, oriented X3 Psychiatric exam: Present: normal affect, normal mood Skin exam: Present: warm, dry, intact, normal color. Absent: rash Course Vital Signs 01/20/25 00:03 Temperature 98.0 F Pulse Rate 101 H Respiratory 18 Rate Blood Pressure 129/82 O2 Sat by Pulse 100 Oximetry Medical Decision Making - Medical Decision Making Was pt. sent in by a medical professional or institution (, PA, MEDICAL RECORDS CODER, urgent care, hospital, or [place] health [place] facility...) When possible be specific @ -No Did you speak to anyone other than the patient for history (EMS, parent, family, police, friend...)? What history was obtained from this source @ -No Did you review nursing and triage notes (agree or disagree)? Why? @ -I reviewed and agree with nursing and triage notes Were old charts reviewed (outside hosp., previous admission, EMS record, old EKG, old radiological studies, urgent care reports/EKG's, [place] health care facility records)? Report findings @ -No old charts were reviewed Differential Diagnosis (chest pain, altered mental status, abdominal pain women, abdominal pain men, vaginal bleeding, weakness, fever, dyspnea, syncope, headache, dizziness, GI bleed, back pain, seizure, CVA, palpatations, mental health, musculoskeletal)? @ -Differential Vaginal Bleeding: Spontaneous , threatened , molar , ectopic , bloody show, incompetent cervix, abruptioplacenta, placenta previa, uterine rupture, dysfunctional uterine bleeding, hemorrhage, uterine fibroid s, this is not meant to be an all-inclusive list. EKG interpreted by me (3pts min.). @ -None X-rays interpreted by me (1pt min.). @ -None done CT interpreted by me (1pt min.). @ -None done U/S interpreted by me (1pt. min.). @ -Ultrasound reveals single intrauterine without heart rate detected concerning for demise, uterine anomaly such as bicornate uterus, subchorionic hemorrhage 2.1 x 2.8 x 3.4 cm What testing was considered but not performed or refused? (CT, X-rays, U/S, labs)? Why? @ -None What meds were considered but not given or refused? Why? @ -None Did you discuss the management of the patient with other professionals (professionals i.e. , PA, MEDICAL RECORDS CODER, lab, RT, psych nurse, high school social studies teacher, roustabout pusher, teacher, targeting acquisition officer, child welfare caseworker)? Give summary @ -No Was smoking cessation discussed for >3mins.? @ -No Was critical care preformed (if so, how long)? @ -No Were there social determinants of health that impacted care today? How? (Homelessness, low income, unemployed, alcoholism, drug addiction, transportation, low edu. Level, literacy, decrease access to med. care, long term, rehab)? @ -No Was there de-escalation of care discussed even if they declined (Discuss DNR or withdrawal of care, Hospice)? DNR status @ -No What co-morbidities impacted this encounter? (DM, HTN, Smoking, COPD, CAD, Cancer, CVA, ARF, Chemo, Hep., AIDS, mental health diagnosis, sleep apnea, morbid obesity)? @ -None Was patient admitted / discharged? Hospital course, mention meds given and route, prescriptions, significant lab abnormalities, going to OR and other pertinent info. @ -Discharge. This is a 29-year-old female at approximately 8 weeks gestation presenting for vaginal bleeding x 20 minutes prior to arrival. Abdomen is soft and nontender. hCG 118,151, otherwise lab work unremarkable. Ultrasound reveals single IUP without heart rate detected concerning for demise. Blood type is B+, RhoGAM not indicated at this time. Results discussed with patient. Advised to follow-up for OB appointment on Tuesday. Appropriate return precautions discussed. Case was discussed with my ED attending Dr. Ann Undiagnosed new problem with uncertain prognosis? @ -No Drug Therapy requiring intensive monitoring for toxicity (Heparin, Nitro, Insulin, Cardizem)? @ -No Were any procedures done? @ -No Diagnosis/symptom? @ -Threatened Acute, or Chronic, or Acute on Chronic? @ -Acute Uncomplicated (without systemic symptoms) or Complicated (systemic symptoms)? @ -Uncomplicated Side effects of treatment? @ -No Exacerbation, Progression, or Severe Exacerbation? @ -No Poses a threat to life or bodily function? How? (Chest pain, USA, MS, pneumonia, PE, COPD, DKA, ARF, appy, cholecystitis, CVA, Diverticulitis, Homicidal, Suicidal, threat to staff... and all critical care pts) @ -Not at this time - Lab Data Result diagrams: 01/20/25 00:19 01/20/25 00:19 Lab Results 01/20/25 01/20/25 01/20/25 Range/Units 00:14 00:16 00:19 WBC 10.0 (3.8-10.6) k/uL RBC 4.61 (3.80-5.40) m/uL Hgb 14.0 (11.4-16.0) gm/dL Hct 41.1 (34.0-46.0) % MCV 89.1 (80.0-100.0) fL MCH 30.4 (25.0-35.0) pg MCHC 34.1 (31.0-37.0) g/dL RDW 12.6 (11.5-15.5) % Plt Count 200 (150-450) k/uL MPV 9.3 Neutrophils % 67 % Lymphocytes % 24 % Monocytes % 4 % Eosinophils % 3 % Basophils % 0 % Neutrophils # 6.7 (1.3-7.7) k/uL Lymphocytes # 2.4 (1.0-4.8) k/uL Monocytes # 0.4 (0-1.0) k/uL Eosinophils # 0.3 (0-0.7) k/uL Basophils # 0.0 (0-0.2) k/uL Sodium (137-145) mmol/L Potassium (3.5-5.1) mmol/L Chloride (98-107) mmol/L Carbon Dioxide (22-30) mmol/L Anion Gap mmol/L BUN (7-17) mg/dL Creatinine (0.52-1.04) mg/dL Est GFR (CKD-EPI)AfAm (>60 ml/min/1.73 sqM) Est GFR (CKD-EPI)NonAf (>60 ml/min/1.73 sqM) Glucose (74-99) mg/dL Plasma Lactic Acid Brooks (0.7-2.0) mmol/L Calcium (8.4-10.2) mg/dL Total Bilirubin (0.2-1.3) mg/dL AST (14-36) U/L ALT (4-34) U/L Alkaline Phosphatase (38-126) U/L Total Protein (6.3-8.2) g/dL Albumin (3.5-5.0) g/dL HCG, Quant mIU/mL Urine Color Colorless Urine Appearance Clear (Clear) Urine pH 6.5 (5.0-8.0) Ur Specific [place] 1.010 (1.001-1.035) Urine Protein Negative (Negative) Urine Glucose (UA) Negative (Negative) Urine Ketones Negative (Negative) Urine Blood Moderate H (Negative) Urine Nitrite Negative (Negative) Urine Bilirubin Negative (Negative) Urine Urobilinogen <2.0 (<2.0) mg/dL Ur Leukocyte Esterase Negative (Negative) Urine RBC 2 (0-5) /hpf Urine WBC <1 (0-5) /hpf Ur Squamous Epith Cells 1 (0-4) /hpf Urine Mucus Rare H (None) /hpf Blood Type B Positive Blood Type Recheck B Pos Bld Type Recheck Status No 01/20/25 01/20/25 Range/Units 00:19 00:19 WBC (3.8-10.6) k/uL RBC (3.80-5.40) m/uL Hgb (11.4-16.0) gm/dL Hct (34.0-46.0) % MCV (80.0-100.0) fL MCH (25.0-35.0) pg MCHC (31.0-37.0) g/dL RDW (11.5-15.5) % Plt Count (150-450) k/uL MPV Neutrophils % % Lymphocytes % % Monocytes % % Eosinophils % % Basophils % % Neutrophils # (1.3-7.7) k/uL Lymphocytes # (1.0-4.8) k/uL Monocytes # (0-1.0) k/uL Eosinophils # (0-0.7) k/uL Basophils # (0-0.2) k/uL Sodium 135 L (137-145) mmol/L Potassium 3.7 (3.5-5.1) mmol/L Chloride 102 (98-107) mmol/L Carbon Dioxide 24 (22-30) mmol/L Anion Gap 9 mmol/L BUN 11 (7-17) mg/dL Creatinine 0.57 (0.52-1.04) mg/dL Est GFR (CKD-EPI)AfAm >90 (>60 ml/min/1.73 sqM) Est GFR (CKD-EPI)NonAf >90 (>60 ml/min/1.73 sqM) Glucose 102 H (74-99) mg/dL Plasma Lactic Acid Brooks 1.7 (0.7-2.0) mmol/L Calcium 9.6 (8.4-10.2) mg/dL Total Bilirubin 0.4 (0.2-1.3) mg/dL AST 20 (14-36) U/L ALT 19 (4-34) U/L Alkaline Phosphatase 47 (38-126) U/L Total Protein 6.8 (6.3-8.2) g/dL Albumin 4.4 (3.5-5.0) g/dL HCG, Quant 706872.0 mIU/mL Urine Color Urine Appearance (Clear) Urine pH (5.0-8.0) Ur Specific [place] (1.001-1.035) Urine Protein (Negative) Urine Glucose (UA) (Negative) Urine Ketones (Negative) Urine Blood (Negative) Urine Nitrite (Negative) Urine Bilirubin (Negative) Urine Urobilinogen (<2.0) mg/dL Ur Leukocyte Esterase (Negative) Urine RBC (0-5) /hpf Urine WBC (0-5) /hpf Ur Squamous Epith Cells (0-4) /hpf Urine Mucus (None) /hpf Blood Type Blood Type Recheck Bld Type Recheck Status Disposition Clinical Impression: Threatened Disposition: HOME SELF-CARE Condition: Stable Instructions (If sedation given, give patient instructions): Threatened Miscarriage (ED) Additional Instructions: Follow-up for OB appointment on Tuesday. Please return to the Emergency Department if symptoms worsen or any other concerns. Is patient prescribed a controlled substance at d/c from ED?: No Referrals: Yolis Helms FNPBC [REFERRING] - 1-2 days Time of Disposition: 03:22
[2025-01-20 00:45] LABS: ALT 19 U/L (4-34); AST 20 U/L (14-36); African American GFR (CKD) >90 (>60 ml/min/1.73 sqM); Albumin 4.4 g/dL (3.5-5.0); Alkaline Phosphatase 47 U/L (38-126); Anion Gap 9 mmol/L; Blood Urea Nitrogen 11 mg/dL (7-17); Calcium 9.6 mg/dL (8.4-10.2); Carbon Dioxide 24 mmol/L (22-30); Chloride 102 mmol/L (98-107); Glucose 102 mg/dL (74-99); Non-African American GFR(CKD) >90 (>60 ml/min/1.73 sqM); Potassium 3.7 mmol/L (3.5-5.1); Sodium 135 mmol/L (137-145); Total Bilirubin 0.4 mg/dL (0.2-1.3); Total Protein 6.8 g/dL (6.3-8.2)
[2025-01-20 00:54] LABS: Appearance,Urine Clear (Clear); Bilirubin,Urine Negative (Negative); Blood,Urine Moderate (Negative); Color,Urine Colorless; Glucose,Urine (UA) Negative (Negative); Ketones,Urine Negative (Negative); Leukocyte Esterase,Urine Negative (Negative); Mucus,Urine Rare /hpf; Nitrite,Urine Negative (Negative); PH, Urine 6.5 (5.0-8.0); Protein,Urine Negative (Negative); RBC,Urine 2 /hpf (0-5); Squamous Epithelial Cell,Urine 1 /hpf (0-4); Urobilinogen,Urine <2.0 mg/dL (<2.0); WBC,Urine <1 /hpf (0-5)
--- NOTE | 2025-01-20 01:51 | US ---
EXAM: US First Trimester , Transabdominal CLINICAL HISTORY: ITS.REASON US Reason: vaginal bleeding in TECHNIQUE: Real-time transabdominal obstetrical ultrasound of the maternal pelvis and a first trimester with image documentation. COMPARISON: None FINDINGS: Uterus: Measures 8.7 x 7.9 x 9.6 cm. Uterine anomaly such as bicornuate or didelphys uterus. Gestational sac identified within the endometrial cavity in the right uterine horn, with mean sac diameter measuring 3.04 cm. Endometrium in the left uterine horn measures approximately 15.7 mm in thickness. Subchorionic hemorrhage measures 2.1 x 2.8 x 3.4 cm. An embryonic pole is identified. Outlook-rump length measures 0.75 cm. heart rate is not detected on this exam. Cervix is long and closed. Placenta/amniotic fluid: Cannot be adequately evaluated due to the early gestational age. Ovaries: The right ovary measures 2.9 x 3.0 x 2.0 cm. The left ovary measures 3.2 x 3.4 x 2.1 cm. The ovaries demonstrate normal color flow. Other: No free fluid is identified. No adnexal mass. LMP: 11/23/2024 GA by LMP: 8 weeks 2 days GÓMEZ by LMP: 08/30/2025 Average ultrasound age: 7 weeks 4 days GÓMEZ by ultrasound: 09/04/2025 IMPRESSION: 1. Single intrauterine without heart rate detected. Findings are concerning for demise. 2. Uterine anomaly such as bicornuate or didelphys uterus. The gestational sac is located within the right uterine horn. 3. Subchorionic hemorrhage measures 2.1 x 2.8 x 3.4 cm.
[2025-01-20 03:42] VITALS: BP 122/74; PULSE 84; TEMP 98.2
== END 2025-01-20 03:43 | disposition home or self-care (01) ==
LOC: EC 23:59
DX: O20.0 Threatened abortion (principal); Z3A.08 8 weeks gestation of pregnancy
CPT/HCPCS: 36415; 76801; 80053; 81001; 83605; 84702; 85025; 86900; 86901; 99284

== ENCOUNTER 2025-01-22 08:32 | Emergency (ER) | payer OTHER ==
--- NOTE | 2025-01-22 09:13 | ED ---
General Adult HPI - General Chief complaint: Upper Respiratory Infection Stated complaint: fever,congestion Time Seen by Provider: 01/22/25 08:34 Source: patient, RN notes reviewed, old records reviewed Mode of arrival: ambulatory Limitations: no limitations - History of Present Illness Initial comments: 29-year-old female presents with a 2-day history of fever cough, myalgia, sore throat and nasal congestion. Patient's family member does have influenza. No difficulty breathing. No history of asthma. Additionally the patient is between 6 and 7 weeks. She is following with obstetrics and has an outpatient lab draw request for quantitative hCG. No lower abdominal pain or cramping. - Related Data Home Medications Medication Instructions Recorded Confirmed Escitalopram [Lexapro] 10 mg PO DAILY 05/19/21 10/05/22 Loratadine [Claritin] 10 mg PO DAILY 08/07/22 10/05/22 Vit No.179/Iron/Folic 1 each PO DAILY 08/07/22 10/05/22 [ Tablet] Previous Rx's Medication Instructions Recorded Amoxic-Pot Clav 875-125Mg 1 tab PO Q12HR #20 tab 10/03/22 [Augmentin 875-125] Albuterol Inhaler [Ventolin Hfa 1 - 2 puff INHALATION Q6H PRN #1 10/08/22 Inhaler] dispenser Ibuprofen [Motrin] 600 mg PO Q6H #60 tab 10/08/22 oxyCODONE HCL [OxyIR] 5 mg PO Q4HR PRN #18 tab 10/08/22 Allergies Allergy/AdvReac Type Severity Reaction Status Date / Time No Known Allergies Allergy Verified 01/22/25 08:43 Review of Systems ROS Statement: Those systems with pertinent positive or pertinent negative responses have been documented in the HPI. ROS Other: All systems not noted in ROS Statement are negative. Past Medical History Past Medical History: GERD/Reflux Additional Past Medical History / Comment(s): hiatal hernia, uterine didelphys History of Any Multi-Drug Resistant Organisms: None Reported Past Surgical History: No Surgical Hx Reported, Section Past Anesthesia/Blood Transfusion Reactions: No Reported Reaction Past Psychological History: Anxiety, Depression Smoking Status: Never smoker Past Alcohol Use History: None Reported Past Drug Use History: None Reported - Past Family History Mother History Unknown: Yes Additional Family Medical History / Comment(s): Heart disease General Exam Limitations: no limitations General appearance: alert, in no apparent distress Head exam: Present: atraumatic, normocephalic Eye exam: Present: normal appearance ENT exam: Present: mucous membranes moist Respiratory exam: Present: normal lung sounds bilaterally. Absent: respiratory distress, wheezes Cardiovascular Exam: Present: regular rate, normal rhythm Neurological exam: Present: alert, oriented X3 Psychiatric exam: Present: normal affect, normal mood Skin exam: Present: warm, dry, intact Course Vital Signs 01/22/25 08:40 Temperature 99.2 F Pulse Rate 115 H Respiratory 22 Rate Blood Pressure 115/70 O2 Sat by Pulse 97 Oximetry Medical Decision Making - Medical Decision Making Was pt. sent in by a medical professional or institution (, KELVIN, FORK LIFT MECHANIC, urgent care, hospital, or penitentiary...) When possible be specific @ -No Did you speak to anyone other than the patient for history (EMS, parent, family, police, friend...)? What history was obtained from this source @ -No Did you review nursing and triage notes (agree or disagree)? Why? @ -I reviewed and agree with nursing and triage notes Were old charts reviewed (outside hosp., previous admission, EMS record, old EKG, old radiological studies, urgent care reports/EKG's, penitentiary records)? Report findings @ -No old charts were reviewed Differential Diagnosis: Flulike illness, upper respiratory infection, bronchitis EKG interpreted by me (3pts min.). @ -As above X-rays interpreted by me (1pt min.). @ -None done CT interpreted by me (1pt min.). @ -None done U/S interpreted by me (1pt. min.). @ -None done What testing was considered but not performed or refused? (CT, X-rays, U/S, labs)? Why? @ -None What meds were considered but not given or refused? Why? @ -None Did you discuss the management of the patient with other professionals (pro fessionals i.e. KELVIN Chambers, FORK LIFT MECHANIC, lab, RT, psych nurse, social science analyst, fire alarm repairer, teacher, v/stol landing signal officer, case preparer and liner)? Give summary @ -No Was smoking cessation discussed for >3mins.? @ -No Was critical care preformed (if so, how long)? @ -No Were there social determinants of health that impacted care today? How? (Homelessness, low income, unemployed, alcoholism, drug addiction, transportation, low edu. Level, literacy, decrease access to med. care, long-term, rehab)? @ -No Was there de-escalation of care discussed even if they declined (Discuss DNR or withdrawal of care, Hospice)? DNR status @ -No What co-morbidities impacted this encounter? (DM, HTN, Smoking, COPD, CAD, Cancer, CVA, ARF, Chemo, Hep., AIDS, mental health diagnosis, sleep apnea, morbid obesity)? @ -Currently approximately 6 weeks , beta-hCG slightly downtrending patient has good obstetric follow-up currently. Was patient admitted / discharged? Hospital course, mention meds given and route, prescriptions, significant lab abnormalities, going to OR and other pertinent info. @29-year-old female with cough, respiratory symptoms and fever. Viral panel is negative however I do suspect influenza at this time. Patient is otherwise well-appearing. No other complaints. Stable for discharge with return parameters. Undiagnosed new problem with uncertain prognosis? @ -No Drug Therapy requiring intensive monitoring for toxicity (Heparin, Nitro, Insulin, Cardizem)? @ -No Were any procedures done? @ -No Diagnosis/symptom? @Flulike illness Acute, or Chronic, or Acute on Chronic? @ -Acute Uncomplicated (without systemic symptoms) or Complicated (systemic symptoms)? @ -Default Side effects of treatment? @ -No Exacerbation, Progression, or Severe Exacerbation? @ -No Poses a threat to life or bodily function? How? (Chest pain, USA, MD, pneumonia, PE, COPD, DKA, ARF, appy, cholecystitis, CVA, Diverticulitis, Homicidal, Suicidal, threat to staff... and all critical care pts) @ -No - Lab Data Lab Results 01/22/25 01/22/25 Range/Units 09:07 09:07 HCG, Quant [id number] mIU/mL Influenza Type A (PCR) Not Detected (Not Detectd) Influenza Type B (PCR) Not Detected (Not Detectd) RSV (PCR) Not Detected (Not Detectd) SARS-CoV-2 (PCR) Not Detected (Not Detectd) Disposition Clinical Impression: Upper respiratory tract infection Disposition: HOME SELF-CARE Condition: Fair Instructions (If sedation given, give patient instructions): Upper Respiratory Infection (ED) Is patient prescribed a controlled substance at d/c from ED?: No Referrals: Alyssa Rahman MD [Primary Care Provider] - 1-2 days Shani Caceres DO [Doctor of Osteopathic Medicine] - 1-2 days Time of Disposition: 11:13
[2025-01-22 10:31] LABS: Influenza A Not Detected (Not Detectd); Influenza B Not Detected (Not Detectd); RSV Not Detected (Not Detectd)
[2025-01-22 11:22] VITALS: BP 116/81; PULSE 105; RESP 20; TEMP 98.7
== END 2025-01-22 11:24 | disposition home or self-care (01) ==
LOC: EC 08:32
DX: O99.511 Diseases of the respiratory system complicating pregnancy, first trimester (principal); Z3A.00 Weeks of gestation of pregnancy not specified
CPT/HCPCS: 36415; 84702; 87636; 99283

== ENCOUNTER → 2025-01-26 | Outpatient (CLI) | payer OTHER ==
[2025-01-27 06:42] LABS: Basophils # (A) 0.01 X 10*3/uL (0.00-0.10); Basophils % (A) 0.3 %; Eosinophils # (A) 0 X 10*3/uL (0.04-0.35); Eosinophils % (A) 0 %; HCT 43.4 % (37.2-46.3); HGB 14.6 g/dL (12.0-15.0); Lymphocytes # (A) 1.33 X 10*3/uL (0.90-5.00); Lymphocytes % (A) 33.7 %; MCH 30.2 pg (27.0-32.0); MCHC 33.6 g/dL (32.0-37.0); MCV 89.9 FL (80.0-97.0); Mean Platelet Volume 12.6 FL (9.5-12.2); Monocytes # (A) 0.36 X 10*3/uL (0.20-1.00); Monocytes % (A) 9.1 %; NRBC Per 100 WBC 0 X 10*3/uL (0.00-0.01); Neutrophils # (A) 2.24 X 10*3/uL (1.80-7.70); Neutrophils % (A) 56.6 %; Platelet Count 173 X 10*3/uL (140-440); RBC 4.83 X 10*6/uL (4.10-5.20); RDW 12.3 % (11.5-14.5); WBC 3.95 X 10*3/uL (4.50-10.00)
== END | disposition home or self-care (01) ==
LOC: LABPAT 11:14
PROVIDERS: ATTEND Obstetrics & Gynecology
DX: Z01.812 Encounter for preprocedural laboratory examination (principal); O02.1 Missed abortion; Z3A.00 Weeks of gestation of pregnancy not specified
CPT/HCPCS: 85025; 86850; 86900; 86901

== ENCOUNTER 2025-01-28 07:14 | Day surgery (SDC) | payer OTHER ==
[~2025-01-28 07:14] MED LIST: DOXYCYCLINE 100 MG CAP PO PRN; HYDROmorphone 0.5 MG/0.5 ML SYRINGE IVP PRN
[2025-01-28] MEDS: IV FLUID CONTINUATION 1,000 ML IV ONE (07:36)
[2025-01-28] MEDS: ONDANSETRON 4 MG/2 ML VIAL IVP ONE (07:55)
[2025-01-28] MEDS: LACTATED RINGERS 1,000 ML IV SCH (07:55)
[2025-01-28] MEDS: DEXAMETHASONE SOD PHOSPHATE 4 MG/ML 1 ML VIAL IV ONE (07:55)
[2025-01-28] MEDS: DOXYCYCLINE 100 MG TABLET PO PRN (07:56)
--- NOTE | 2025-01-28 08:56 | P.HPOB ---
History of Present Illness H&P Date: 01/28/25 Chief Complaint: Missed Ms. Abdullahi is a 29 year old with LMp of 11/23/2024 who presents with a missed measuring 7 weeks by crown rump length. She presents for surgical management. Past Medical History Past Medical History: GERD/Reflux Additional Past Medical History / Comment(s): hiatal hernia, uterine didelphys, herniated disc lower back History of Any Multi-Drug Resistant Organisms: None Reported Past Surgical History: Section Additional Past Surgical History / Comment(s): trigger inj in lower back as needed Past Anesthesia/Blood Transfusion Reactions: No Reported Reaction Smoking Status: Former smoker - Past Family History Mother History Unknown: Yes Family Medical History: Coronary Artery Disease (CAD) Additional Family Medical History / Comment(s): Heart disease Medications and Allergies Home Medications Medication Instructions Recorded Confirmed Type Loratadine [Claritin] 10 mg PO DAILY PRN 08/07/22 01/28/25 History Allergies Allergy/AdvReac Type Severity Reaction Status Date / Time No Known Allergies Allergy Verified 01/28/25 07:33 Exam Vital Signs Temp Pulse Resp BP Pulse Ox 01/28/25 07:33 97.3 F L 91 16 114/71 99 Intake and Output 01/27/25 01/28/25 01/28/25 22:59 06:59 14:59 Other: Weight 72.8 kg Focused physical exam is performed. The patient is in no apparent distress, breathing is non-labored. Abdomen soft, non-tender. Extremities are non-tender and non-edematous. Assessment and Plan Assessment: 29 year old with 7 week missed presenting for suction D&C Plan: Risks, benefits, and alternatives to surgery are discussed with the patient including risk of bleeding, infection, uterine perforation, and damage to surrounding structures. The patient understands these risks and desires to proceed with surgery as discussed. All questions answered.
[2025-01-28] MEDS ORDERED: ACETAMINOPHEN IV (For NPO) 1,000 MG/100 ML VIAL ONE (09:10)
[2025-01-28] MEDS ORDERED: KETOROLAC 15 MG/ML 1 ML VIAL ONE (09:10)
[2025-01-28] MEDS ORDERED: PROPOFOL 10 MG/ML 20 ML VIAL IV ONE (09:10)
[2025-01-28] MEDS ORDERED: LIDOCAINE 1% INJ 10MG/ML (20 ML MDV) ONE (09:10)
[2025-01-28] MEDS ORDERED: fentaNYL (PF) 50 MCG/ML 2 ML AMP ONE (09:10)
[2025-01-28] MEDS: LACTATED RINGERS 1,000 ML IV ONE (09:52)
--- NOTE | 2025-01-28 09:59 | P.OP ---
Date of Procedure: 01/28/25 Preoperative Diagnosis: Missed 7 weeks Postoperative Diagnosis: Same Procedure(s) Performed: Suction D&C with ultrasound guidance Implants: None Anesthesia: LUNA Surgeon: Arianne Pedraza IV fluids (ml): 300 Pathology: other (products of conception) Condition: stable Disposition: same day Indications for Procedure: Ms. Abdullahi is a 29 year old with a 7 week missed presenting for suction D&C. The procedure will be performed under ultrasound guidance due to the fact that the patient has a uterine didelphys. Risks of bleeding, infection, damage to surrounding structures, and uterine perforation are discussed with the patient who understands these risks. All questions answered. Operative Findings: Large amount of products of conception removed. Uterus sounds to 9 centimeters prior to the case. Description of Procedure: The patient was taken to the operating room where a general anesthetic was administered. She was then positioned in the dorsal lithotomy position and prepped and draped in the normal sterile fashion. Once the anesthetic was found to be adequate, a bimanual exam was performed under anesthetic. Next, a weighted speculum was placed in the vagina. The anterior lip of cervix was grasped with the tenaculum and was dilated with Vamshi dilators to accommodate the suction curette. An 8mm suction curette was connected to the suction and was placed in the cervix and a suction curettage was performed. Two passes were made with the suction curettage. Next, a sharp curettage was performed obtaining a small amount of tissue and this was followed by third suction curettage. Ultrasound guidance showed removal of the pole and yolk sac, some accumulating blood was noted at the end of the case still distending the uterine cavity. After the procedure, the tenaculum was removed. The cervix was hemostatic. The weighted speculum was removed. After the procedure, a second bimanual exam was performed and the patient's uterus had significantly decreased in size.The patient was taken from the operating room in stable condition after she was cleaned. She will be discharged home today and will follow up in the office in 6 weeks.
--- NOTE | 2025-01-28 10:03 | US ---
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 Live scanning with Dr Arteaga. [facility], , 01/28/2025 10:00 AM
[2025-01-28 10:05] VITALS: TEMP 97
[2025-01-28 10:31] VITALS: RESP 16
[2025-01-28 11:53] VITALS: BP 108/70; PULSE 79
== END 2025-01-28 11:55 | disposition home or self-care (01) ==
LOC: OR 07:14
PROVIDERS: ATTEND Obstetrics & Gynecology
DX: O02.1 Missed abortion (principal); Q51.28 Other and unspecified doubling of uterus; Z87.891 Personal history of nicotine dependence; Q51.3 Bicornate uterus
CPT/HCPCS: 59820; J1100; J2405; J2003; J3010; J0131; J1885; J2704; 88305